=== PATIENT | male | born 1960 | race Caucasian/White ===

== ENCOUNTER → 2020-12-17 08:50 | Outpatient (CLI) | payer OTHER, SELFPAY ==
[2020-12-17 20:15] LABS: Alanine Aminotransferase 21 IU/L (<50); Albumin 3.9 g/dL (3.5-5.0); Albumin Globulin Ratio 1.4 (1.0-2.8); Alkaline Phosphatase 94 U/L (38-126); Aspartate Aminotransferase 29 IU/L (17-59); Bilirubin Total 0.4 mg/dL (0.2-1.3); Blood Urea Nitrogen 22 mg/dL (9-20); Calcium 9.7 mg/dL (8.4-10.2); Carbon Dioxide 28 mmol/L (22-32); Chloride 104 mmol/L (98-107); Cholesterol 174 mg/dL (140-199); Estimated Glomerular Filt Rate > 60.0 mL/min (>60); Globulin 2.8 g/dL (1.7-4.1); Glucose 343 mg/dL (80-110); HDL Cholesterol 50 mg/dL (40-60); HEMOLYSIS < 15 (0-50); LDL Cholesterol Calculated 101 mg/dL (<100); Potassium 4.9 mmol/L (3.4-5.1); Sodium 138 mmol/L (137-145); Total Protein 6.7 g/dL (6.3-8.2); Triglycerides 117 mg/dL (35-150)
[2020-12-17 20:22] LABS: Hemoglobin A1C% w Est Avg Glu 12.4 % (4.0-6.0)
== END ==
PROVIDERS: PCP Family Medicine; Visit Provider Family Medicine
DX: E11.65 Type 2 diabetes mellitus with hyperglycemia (principal); Z79.4 Long term (current) use of insulin
CPT/HCPCS: 80053; 80061; 83036

== ENCOUNTER 2021-03-13 09:13 | Emergency (ER) | payer OTHER, SELFPAY ==
[2021-03-13 09:33] VITALS: BP 142/101; PULSE 88; RESP 20; TEMP 36.4; O2SAT 97; BMI 27.3
--- NOTE | 2021-03-13 12:15 | ED_ITS ---
HPI - Extremity Injury (Lower) General Chief Complaint: Extremity Injury, Lower Stated Complaint: jammed left knee/can't sleep from pain Time Seen by Provider: 03/13/21 12:15 Mode of arrival: Ambulatory History of Present Illness HPI Narrative: This is a 60-year-old male comes emergency depart with continued left knee pain approximately week after a hyperextension injury. Patient states he had swelling immediately afterwards. He has continued to have some swelling although not significant. Patient states he has had difficulty controlling his pain. He has tried NSAIDs [id number]. He did take some narcotic pain medication last night which was helpful to help him fall asleep but he still quite uncomfortable. Patient states his knee feels unstable. He feels like it is going to give way. He can feel a bit grinding or crunch sensation when he tr ies to flex his knee. He is able to flex and extend it but it is uncomfortable. Patient denies any new numbness, tingling or weakness in the foot. He denies any other additional injuries. He has never had any intervention to this knee. Patient did have meniscal repair to his right knee remotely. Patient lives on [facility] and was seen by providers there. Patient did have an x-ray yesterd ay which shows no acute change. He has not had any new or additional injuries since then. He is a known diabetic and takes medication for dyslipidemia. He denies allergies besides sulfa. Related Data Home Medications Medication Instructions Recorded Confirmed atorvastatin 20 mg tablet 20 mg PO DAILY 12/20/20 03/12/21 metformin 1,000 mg tablet 1,000 mg PO BID 12/20/20 03/12/21 Previous Rx's Medication Instructions Recorded blood sugar diagnostic (Contour #100 ea 12/21/20 Test Strips) insulin glargine 100 unit/mL (3 64 unit SUBCUT QAM #15 ml 12/21/20 mL) subcutaneous pen insulin aspart U-100 100 unit/mL 5 unit SUBCUT QACDINNER #15 ml 12/31/20 (3 mL) subcutaneous pen (Novolog Flexpen U-100 Insulin aspart) hydrocodone 5 mg-acetaminophen 325 See Rx Instructions PO BEDTIME PRN 03/12/21 mg tablet #10 tab hydrocodone 5 mg-acetaminophen 325 1 tab PO QID PRN #14 tab 03/13/21 mg tablet Allergies Allergy/AdvReac Type Severity Reaction Status Date / Time Sulfa (Sulfonamide AdvReac Mild RASH Verified 03/12/21 10:10 Antibiotics) Review of Systems Review of Systems ROS Unobtainable: All systems reviewed & are unremarkable except as noted in HPI and below Patient History Medical History Wears glasses Surgical History Anesthesia History of knee surgery History of nasal surgery Family History (Updated 01/10/21 @ 19:34 by Ashley Franklin) Father Cancer Diabetes mellitus Mother Blood disorder Grandfather History of heart disease Grandfather History of heart disease Social History Smoking Status: Never smoker Smoking Status: Never smoker Substance Use Type: marijuana Exam Narrative Exam Narrative: GENERAL: Alert and oriented x three, male in mild distress. Patient is standing initially when I arrive in the room but does have crutches. HEENT: Head normocephalic, atraumatic, EOMI, pupils reactive, face symmetric, moist mucous membranes NECK: Supple, full range of motion CARDIOVASCULAR: Regular rate and rhythm without murmurs, rubs or gallops. RESPIRATORY: Breath sounds equal bilaterally, no wheezes rales or rhonchi. EXTREMITIES: Patient appears to have full range of motion but actually does appear to slightly hyperextend while standing. Patient on joint laxity testing has increased laxity with valgus testing. Anterior posterior drawer seems less lacks. Patient does have some mild swelling in the knee. No ecchymosis, no skin changes. Patient does not have any significant bony tenderness on exam majority discomfort is posterior and soft tissue above the knee, no clubbing or edema. Neurovascularly intact. Patient has no bony tenderness for the lower extremity below the knee, ankle or toes. He is neurovascularly intact with 2+ pulses, no cyanosis or pallor other skin changes noted. NEUROLOGICAL: Cranial nerves II through XII grossly intact. Moving all extremities SKIN: Warm, dry, no petechiae, no rashes or lesions. Initial Vital Signs Initial Vital Signs: Vital Signs Temperature 97.5 F L 03/13/21 09:33 Pulse Rate 88 03/13/21 09:33 Respiratory Rate 20 03/13/21 09:33 Blood Pressure 142/101 H 03/13/21 09:33 Pulse Oximetry 97 03/13/21 09:33 Course Consultations Consultation #1: Dr. Kemp, orthopedic surgery would like to see a patient within the week for follow-up. They have the ability to do MRI through their office and she wishes for patient to contact his this may actually be more financially feasible for him than getting 1 obtain as an outpatient. Plan for knee immobilizer, toe-touch weight-bearing and patient to contact office. Vital Signs Vital signs: Vital Signs - 8 hr 03/13/21 15:21 Pulse Rate 75 Respiratory Rate 18 Blood Pressure 140/77 Pulse Oximetry 98 MDM - Extremity Injury (Lower) Imaging Data Extremity x-ray #1: Radiologist's Impression: [address] [id number] ReportSigned Patient: Yan Lombardi TMR#: [id number]: 9Acct:[id number]/Sex: 60 / MDate of Service: 03/12/21[id number] Procedure: XR knee LT 3V Ordering Provider: Allie Diaz P.A-C PROCEDURE: XR KNEE LT 3V INDICATIONS: left knee hyperextesion injury TECHNIQUE: 3 views of the knee were acquired. COMPARISON: None. FINDINGS: Bones: No fractures or dislocations. No suspicious bony lesions. Soft tissues: No joint effusion. No suspicious soft tissue calcifications. IMPRESSION: No trauma found. Dictated by: Jose A Hernandez M.D. on 03/12/2021 at 13:13 Approved by: Jose A Hernandez M.D. on 03/12/2021 at 13:13 [facility] Narrative Medical decision making narrative: This is a 60-year-old male with on a injury to his left knee, patient has exam for ligamentous injury. He is neurovascularly intact with no acute changes on his x-ray. Did consultation with orthopedic surgery who is happy to follow up with him and will help facilitate outpatient MRI. Patient is understandably frustrated he was told on [facility] by either provider or off has some voice but he could come to the ER again MRI. We discussed close not be able to provide this today. Patient was given a prescription for pain medication, ablation knee immobilizer he has crutches which he has been using. Patient states he is willing to pay garces for an MRI so was given ordered as Dr. Alexander would like 1 obtained to obtain as an outpatient if he is unwilling to wait for the office to facilitate 1 for him. Discharge Plan Departure Patient Disposition: Home Clinical Impression: Left knee injury Qualifiers: Encounter type: initial encounter Qualified Code(s): S89.92XA - Unspecified injury of left lower leg, initial encounter Internal derangement of knee Qualifiers: Laterality: left Qualified Code(s): M23.92 - Unspecified internal derangement of left knee Instructions: Knee Sprain, How to Use a Knee Immobilizer Activity Restrictions/Additional Instructions: Follow-up with orthopedic surgery. Call today for an appointment. A order has been given to you for outpatient MRI per Dr. Kemp they also have their own MRI machine and may take slightly longer but may be cheaper and the office can set you up for this if you prefer. Use crutches to toe-touch weightbear until seen by Orthopedic surgery. Continue knee immobilizer, you may remove to wash but continue to wear regularly. You may continue ibuprofen up to 800 mg every 8 hours as needed for pain. If this is inadequate to make take narcotic pain medication as prescribed. This medication can make you sleepy do not drive, perform hazardous activities or make any major decisions while taking it. This medication will make you constipated please take a stool softener once to twice daily until stools are soft and regular. P Splint Care: Keep splint clean and dry. Elevated affected body part to decrease swelling. OK to use ice pack on the affected body part. Use for 15-20 minutes each time, for 5-6x per day. If you develop worsening pain, numbness, tingling, discoloration of the affected body part, loosen knee immobilizer, and either see your doctor for an urgent re-assessment, or return to the Emergency Department. Return to the Emergency Department for any new or worsening symptoms. Prescriptions: New hydrocodone-acetaminophen 5-325 mg tablet 1 tab PO QID PRN (Reason: pain) Qty: 14 RF: 0 No Action insulin aspart U-100 [Novolog Flexpen U-100 Insulin] 100 unit/mL (3 mL) insulin pen 5 unit SUBCUT QACDINNER Qty: 15 RF: 5 insulin glargine 100 unit/mL (3 mL) insulin pen 64 unit SUBCUT QAM Qty: 15 RF: 5 (DME) Contour Test Strips Strip See Rx Instructions .ROUTE .MEDSUPPLY Qty: 100 RF: 5 metformin 1,000 mg tablet 1,000 mg PO BID RF: 0 atorvastatin 20 mg tablet 20 mg PO DAILY RF: 0 hydrocodone-acetaminophen 5-325 mg tablet See Rx Instructions PO BEDTIME PRN (Reason: pain, severe) Qty: 10 RF: 0 Referrals: Emeterio Medina MD [Primary Care Provider] - Melody Kemp MD [Physician] -
--- NOTE | 2021-03-13 15:00 | PC.NURSE ---
refused knee immobilizer. came from home with crutches
[2021-03-13 15:21] VITALS: BP 140/77; PULSE 75; RESP 18; O2SAT 98
== END 2021-03-13 15:21 | disposition home or self-care (01) ==
PROVIDERS: Emergency Provider Emergency Medicine; PCP Family Medicine
DX: S89.92XA Unspecified injury of left lower leg, initial encounter (principal); M23.92 Unspecified internal derangement of left knee; M25.362 Other instability, left knee; M25.562 Pain in left knee; S83.232A Complex tear of medial meniscus, current injury, left knee, initial encounter; S83.282A Other tear of lateral meniscus, current injury, left knee, initial encounter; M25.462 Effusion, left knee; M71.22 Synovial cyst of popliteal space [Baker], left knee; X50.0XXA Overexertion from strenuous movement or load, initial encounter
CPT/HCPCS: 73721; 99281; 99282

== ENCOUNTER → 2021-03-13 15:33 | Outpatient (CLI) | payer OTHER, SELFPAY ==
--- NOTE | 2021-03-13 15:34 | DI.MRI.S_ITS ---
PROCEDURE: MR KNEE LT WO CON INDICATIONS: left knee instability TECHNIQUE: Noncontrast sagittal PD fast spin echo and T2 fast spin echo with fat saturation, sagittal 3-D FLASH with fat saturation; coronal T1 spin echo and PD fast spin echo with fat saturation, and axial PD fast spin echo with fat saturation through the knee. COMPARISON: [facility] ([facility]), CR, XR KNEE LT 3V, 03/12/2021, 10:32. FINDINGS: Image quality: Excellent. Menisci: There is complex tearing in the body and posterior horn of the medial meniscus including an inferior flap tear at the junction of the body and posterior horn. This appears contiguous with a horizontally oriented longitudinal tear in the posterior horn involving the inferior articular surface but also demonstrating intrasubstance extension into the posterior meniscal root ligament. There is also radial tearing along the free edge in the body and posterior horn. There is partial tearing of the posterior meniscal root ligament without rupture. Within the lateral meniscus, there is mild degenerative tearing within the body involving the superior articular surface and free edge. There is also moderate partial tearing at the junction with the posterior meniscal root ligament without complete rupture. There is slight peripheral extrusion of the medial and lateral menisci. Cruciate ligaments: The anterior and posterior cruciate ligaments appear intact. Medial structures: The medial collateral ligament appears intact. The semimembranosus tendon insertions and meniscocapsular junction appear intact. Visualized portions of the pes anserinus tendons appear intact with mild peritendinous edema but no discrete bursal fluid collections. Lateral structures: The lateral collateral ligament, long and short heads of the biceps femoris tendon appear intact. The popliteus tendon appears intact. Iliotibial band appears normal. Anterior structures: The quadriceps and patellar tendons appear intact. Patellar alignment is normal. No femoral trochlear dysplasia or ventral trochlear prominence. There is prepatellar subcutaneous fluid and edema with a small amount of loculated fluid suggestive of bursitis. Bones and cartilage: No bone marrow contusions or fractures. There is minimal osteophytosis. Mild cartilage thinning is present in the medial compartment with chondral fissuring associated with small foci of subchondral edema along the medial femoral condyle. There is mild superficial chondral irregularity in the lateral compartment. Mild cartilage thinning is present in the patellofemoral compartment with superficial chondral fissuring along the lateral patellar facet. Joint space: There is a moderate-sized knee joint effusion. There is a small Alcantar's cyst. Normal appearing synovial plicae are incidentally noted. IMPRESSION: 1. Complex tearing of the medial meniscus and mild degenerative tearing of the lateral meniscus as described. Partial tearing of the meniscal root ligaments also demonstrated without rupture. 2. Moderate joint effusion and small Alcantar's cyst. 3. Prepatellar edema and small amount of loculated subcutaneous fluid suggestive of bursitis. 4. Mild chondral degeneration. Dictated by: Tristen Nolan M.D. on 03/14/2021 at 8:37 Approved by: Tristen Nolan M.D. on 03/14/2021 at 8:45
== END ==
PROVIDERS: PCP Family Medicine; Referring Provider Physician Assistant; Visit Provider Physician Assistant
DX: S89.92XA Unspecified injury of left lower leg, initial encounter (principal); M25.362 Other instability, left knee; M25.562 Pain in left knee; S83.232A Complex tear of medial meniscus, current injury, left knee, initial encounter; S83.282A Other tear of lateral meniscus, current injury, left knee, initial encounter; M25.462 Effusion, left knee; M71.22 Synovial cyst of popliteal space [Baker], left knee; X50.0XXA Overexertion from strenuous movement or load, initial encounter
CPT/HCPCS: 73721

== ENCOUNTER 2025-03-16 15:49 | Inpatient (IN) | payer MEDICARE, OTHER, SELFPAY ==
[2025-03-16] VITALS (14 sets, daily range): BP systolic 137–142; BP diastolic 69–70; PULSE 60–80; RESP 16–18; TEMP 35.9–36.8; O2SAT 98–100; BMI 27.3; BMI 27.1
--- NOTE | 2025-03-16 16:05 | ED.LOWEXIN ---
HPI - Extremity Injury (Lower) <Kurtis Zazueta, DO - Last Filed: 03/16/25 18:48> General Chief Complaint: Extremity Injury, Lower Stated Complaint: R Foot pain, Sent from PCP Time Seen by Provider: 03/16/25 15:52 History of Present Illness HPI Narrative: 65-year-old gentleman type 2 diabetic lipidemia presents with right lower extremity wound infection that started last Thursday after he accidentally dropped a block of wood on his foot and it started to get more swollen red and tender he did not seek out immediate medical attention was initially seen by the PCP this past Thursday started on oral antibiotics and follow up today with concerns at this has gone deeper than expected then would need IV antibiotics at this time. A packet of his information was sent to have to us including his lab work today which was glucose of 226 a white count of 16.7 with a left shift cultures obtained that showed staph aureus and mixed evelyn with the A1c of 10.4. He was initially given a shot of Rocephin in the office and started on Augmentin. Related Data Home Medications ?Medication ?Instructions ?Recorded ?Confirmed atorvastatin 20 mg tablet 20 mg PO DAILY 12/20/20 03/12/21 metformin 1,000 mg tablet 1,000 mg PO BID 12/20/20 03/12/21 Previous Rx's ?Medication ?Instructions ?Recorded blood sugar diagnostic (Contour #100 ea 12/21/20 Test Strips) insulin aspart U-100 100 unit/mL 5 unit (0.05 mL) SUBCUT QACDINNER 12/31/20 (3 mL) subcutaneous pen (Novolog #15 mL FlexPen U-100 Insulin aspart) hydrocodone 5 mg-acetaminophen 325 See Rx Instructions PO BEDTIME PRN 03/12/21 mg tablet pain, severe #10 tabs hydrocodone 5 mg-acetaminophen 325 1 tab PO QID PRN pain #14 tabs 03/13/21 mg tablet insulin glargine 100 unit/mL (3 64 unit (0.64 mL) SUBCUT QAM #15 mL 07/18/21 mL) subcutaneous pen pen needle, diabetic 31 gauge x See Rx Instructions .Route 07/19/21 5/16 (BD Ultra-Fine Short Pen .COMPLEX #100 ea Needle) Allergies Allergy/AdvReac Type Severity Reaction Status Date / Time Sulfa (Sulfonamide AdvReac Mild RASH Verified 03/12/21 10:10 Antibiotics) Review of Systems <Kurtis Zazueta DO - Last Filed: 03/16/25 18:48> Review of Systems ROS Unobtainable: All systems reviewed & are unremarkable except as noted in HPI and below Patient History <Kurtis Zazueta DO - Last Filed: 03/16/25 18:48> Medical History Wears glasses Surgical History Anesthesia History of knee surgery History of nasal surgery Family History (Updated 01/10/21 @ 19:34 by Ashley Franklin) Father Cancer Diabetes mellitus Mother Blood disorder Grandfather History of heart disease Grandfather History of heart disease Social History Smoking Status: Never smoker Exam <Kurtis Zazueta DO - Last Filed: 03/16/25 18:48> Narrative Exam Narrative: GENERAL: [65] year old patient appears stated age. Well-developed patient, in mild distress. HEAD: Atraumatic. Normocephalic. EYES: Pupils equal round and reactive. Extraocular motions intact. No scleral icterus. No injection or drainage. ENT: Nose without bleeding, purulent drainage. Throat without erythema, tonsillar hypertrophy or exudate. Airway patent. NECK: Trachea midline. Non tender CARDIOVASCULAR: Regular rate and rhythm without murmurs, gallops, or rubs. RESPIRATORY: Clear to auscultation. Breath sounds equal bilaterally. No wheezes, rales, or rhonchi. GASTROINTESTINAL: Abdomen soft, non-tender, nondistended. EXTREMITIES: No edema or joint tenderness. BACK: Nontender without deformity or crepitance. No flank tenderness. NEURO: AOx3. SKIN: RLE between interdigital webspace 3rd and 4th digit red swollen drainage with yellow pus drainage with streaking up the lower to mid distal 1/3 RLE Initial Vital Signs Initial Vital Signs: Vital Signs Pulse Rate 65 03/16/25 15:57 Pulse Oximetry 99 03/16/25 15:57 <Abram Brown DO - Last Filed: 03/16/25 22:09> Initial Vital Signs Initial Vital Signs: Vital Signs Pulse Rate 65 03/16/25 15:57 Pulse Oximetry 99 03/16/25 15:57 Course <Kurtis Zazueta, DO - Last Filed: 03/16/25 18:48> Orders Ordered: ED Orders 03/16/25 16:05 CRP [C-Reactive Protein Quant] Stat Complete Blood Count AUTO DIFF Stat Comprehensive Metabolic Panel Stat Erythrocyte Sedimentation Rate Stat Lactate (Lactic Acid) Stat Lipase Stat PTT Partial Thromboplastin Vinod Stat Procalcitonin Stat Prothrombin Time INR Stat 03/16/25 16:13 XR chest 1V Stat EKG-12 Lead Stat RT Consult Eval and Treat NOW 03/16/25 16:18 CT LE RT w con Stat 03/16/25 16:38 Blood Culture Stat 03/16/25 18:30 Wound Culture and Gram Stain Stat 03/16/25 18:44 MR foot RT wo/w con Stat 03/16/25 19:36 US arterial duplex LE RT Stat 03/16/25 21:53 Consult to Occupational Therapy Evaluate & Treat Consult to Physical Therapy Evaluate & Treat 03/16/25 22:00 Basic Metabolic Panel DAILY Complete Blood Count AUTO DIFF DAILY Acetaminophen (Acetaminophen 325 Mg Tablet) 650 mg PO Q6H PRN PRN Reason: Fever/Mild Pain (1-3) Hydrocodone Bitart/Acetaminophen (Hydrocodone/Acet 5/325 Tablet) 1 tab PO Q4H PRN PRN Reason: Pain, Moderate (4-6) Heparin Sodium (Porcine) (Heparin 5,000 Unit/Ml Vial) 5,000 unit SUBCUT BID SHELBIE Sodium Chloride (Normal Saline 0.9%) 1,000 mls @ 100 mls/hr IV CONT SHELBIE Piperacillin Sod/Tazobactam (Sod 3.375 gm/ Sodium Chloride) 100 mls @ 25 mls/hr IV Q8H SHELBIE Morphine Sulfate (Morphine 4 Mg/Ml Inj) 3 mg IV Q2HR PRN PRN Reason: Pain, Severe (7-10) Naloxone HCl (Naloxone 0.4 Mg/Ml Vial) 0.2 mg IV Q2MIN PRN PRN Reason: Opiate Reversal Ondansetron HCl (Ondansetron 4 Mg/2 Ml Inj) 4 mg IV NOW PRN PRN Reason: Nausea And Vomiting Ondansetron HCl (Ondansetron 4 Mg Odt) 4 mg PO NOW PRN PRN Reason: Nausea And Vomiting Ondansetron HCl (Ondansetron 4 Mg/2 Ml Inj) 4 mg IV Q8HR PRN PRN Reason: Nausea And Vomiting Vancomycin HCl (Vancomycin Per Pharmacy) 1 request MISC NOW PRN PRN Reason: cellulitis Discontinued Medications Dextrose (Dextrose 50 % In Water 25 Gm/50 Ml Syringe) 25 gm IV NOW ONE Stop: 03/16/25 19:07 Last Admin: 03/16/25 19:08 Dose: 25 gm Documented By: GUDELIA Dextrose (Dextrose 50 % In Water 25 Gm/50 Ml Syringe) 25 gm IV NOW ONE Stop: 03/16/25 20:49 Last Admin: 03/16/25 20:56 Dose: 25 gm Documented By: GUDELIA Sodium Chloride (Normal Saline 0.9%) 1,000 mls @ 1,000 mls/hr IV BOLUS ONE Stop: 03/16/25 17:12 Last Infusion: 03/16/25 19:04 Dose: Infused Documented By: Admin: 03/16/25 16:43 Dose: 1,000 mls/hr Documented By: GUDELIA Vancomycin HCl 1,000 mg/ (Sodium Chloride) 250 mls @ 250 mls/hr IV NOW ONE Stop: 03/16/25 17:13 Last Infusion: 03/16/25 19:04 Dose: Infused Documented By: Admin: 03/16/25 17:33 Dose: 250 mls/hr Documented By: GUDELIA Piperacillin Sod/Tazobactam (Sod 4.5 gm/ Sodium Chloride) 100 mls @ 200 mls/hr IV NOW ONE Stop: 03/16/25 16:15 Last Infusion: 03/16/25 17:34 Dose: Infused Documented By: Admin: 03/16/25 16:42 Dose: 200 mls/hr Documented By: GUDELIA Vital Signs Vital signs: Vital Signs - 8 hr 03/16/25 15:57 03/16/25 15:59 03/16/25 15:59 Temperature Pulse Rate 65 80 Respiratory Rate Blood Pressure 142/70 H Pulse Oximetry 99 100 Oxygen Delivery Method 03/16/25 16:00 03/16/25 16:01 03/16/25 16:30 Temperature 98.3 F Pulse Rate 77 80 72 Respiratory Rate 16 Blood Pressure 142/70 H Pulse Oximetry 100 100 99 Oxygen Delivery Method Room Air 03/16/25 17:00 03/16/25 17:30 03/16/25 18:00 Temperature Pulse Rate 65 63 65 Respiratory Rate Blood Pressure Pulse Oximetry 99 99 99 Oxygen Delivery Method 03/16/25 18:30 03/16/25 19:00 03/16/25 20:15 Temperature Pulse Rate 62 68 65 Respiratory Rate Blood Pressure Pulse Oximetry 100 99 98 Oxygen Delivery Method 03/16/25 20:30 03/16/25 21:00 Temperature Pulse Rate 67 60 Respiratory Rate Blood Pressure Pulse Oximetry 100 99 Oxygen Delivery Method <Abram Brown, DO - Last Filed: 03/16/25 22:09> Orders Ordered: ED Orders 03/16/25 16:05 CRP [C-Reactive Protein Quant] Stat Complete Blood Count AUTO DIFF Stat Comprehensive Metabolic Panel Stat Erythrocyte Sedimentation Rate Stat Lactate (Lactic Acid) Stat Lipase Stat PTT Partial Thromboplastin Vinod Stat Procalcitonin Stat Prothrombin Time INR Stat 03/16/25 16:13 XR chest 1V Stat EKG-12 Lead Stat RT Consult Eval and Treat NOW 03/16/25 16:18 CT LE RT w con Stat 03/16/25 16:38 Blood Culture Stat 03/16/25 18:30 Wound Culture and Gram Stain Stat 03/16/25 18:44 MR foot RT wo/w con Stat 03/16/25 19:36 US arterial duplex LE RT Stat 03/16/25 21:53 Consult to Occupational Therapy Evaluate & Treat Consult to Physical Therapy Evaluate & Treat 03/16/25 22:00 Basic Metabolic Panel DAILY Complete Blood Count AUTO DIFF DAILY Acetaminophen (Acetaminophen 325 Mg Tablet) 650 mg PO Q6H PRN PRN Reason: Fever/Mild Pain (1-3) Hydrocodone Bitart/Acetaminophen (Hydrocodone/Acet 5/325 Tablet) 1 tab PO Q4H PRN PRN Reason: Pain, Moderate (4-6) Heparin Sodium (Porcine) (Heparin 5,000 Unit/Ml Vial) 5,000 unit SUBCUT BID SHELBIE Sodium Chloride (Normal Saline 0.9%) 1,000 mls @ 100 mls/hr IV CONT SHELBIE Piperacillin Sod/Tazobactam (Sod 3.375 gm/ Sodium Chloride) 100 mls @ 25 mls/hr IV Q8H SHELBIE Morphine Sulfate (Morphine 4 Mg/Ml Inj) 3 mg IV Q2HR PRN PRN Reason: Pain, Severe (7-10) Naloxone HCl (Naloxone 0.4 Mg/Ml Vial) 0.2 mg IV Q2MIN PRN PRN Reason: Opiate Reversal Ondansetron HCl (Ondansetron 4 Mg/2 Ml Inj) 4 mg IV NOW PRN PRN Reason: Nausea And Vomiting Ondansetron HCl (Ondansetron 4 Mg Odt) 4 mg PO NOW PRN PRN Reason: Nausea And Vomiting Ondansetron HCl (Ondansetron 4 Mg/2 Ml Inj) 4 mg IV Q8HR PRN PRN Reason: Nausea And Vomiting Vancomycin HCl (Vancomycin Per Pharmacy) 1 request MISC NOW PRN PRN Reason: cellulitis Discontinued Medications Dextrose (Dextrose 50 % In Water 25 Gm/50 Ml Syringe) 25 gm IV NOW ONE Stop: 03/16/25 19:07 Last Admin: 03/16/25 19:08 Dose: 25 gm Documented By: GUDELIA Dextrose (Dextrose 50 % In Water 25 Gm/50 Ml Syringe) 25 gm IV NOW ONE Stop: 03/16/25 20:49 Last Admin: 03/16/25 20:56 Dose: 25 gm Documented By: GUDELIA Sodium Chloride (Normal Saline 0.9%) 1,000 mls @ 1,000 mls/hr IV BOLUS ONE Stop: 03/16/25 17:12 Last Infusion: 03/16/25 19:04 Dose: Infused Documented By: Admin: 03/16/25 16:43 Dose: 1,000 mls/hr Documented By: GUDELIA Vancomycin HCl 1,000 mg/ (Sodium Chloride) 250 mls @ 250 mls/hr IV NOW ONE Stop: 03/16/25 17:13 Last Infusion: 03/16/25 19:04 Dose: Infused Documented By: Admin: 03/16/25 17:33 Dose: 250 mls/hr Documented By: GUDELIA Piperacillin Sod/Tazobactam (Sod 4.5 gm/ Sodium Chloride) 100 mls @ 200 mls/hr IV NOW ONE Stop: 03/16/25 16:15 Last Infusion: 03/16/25 17:34 Dose: Infused Documented By: Admin: 03/16/25 16:42 Dose: 200 mls/hr Documented By: GUDELIA Vital Signs Vital signs: Vital Signs - 8 hr 03/16/25 15:57 03/16/25 15:59 03/16/25 15:59 Temperature Pulse Rate 65 80 Respiratory Rate Blood Pressure 142/70 H Pulse Oximetry 99 100 Oxygen Delivery Method 03/16/25 16:00 03/16/25 16:01 03/16/25 16:30 Temperature 98.3 F Pulse Rate 77 80 72 Respiratory Rate 16 Blood Pressure 142/70 H Pulse Oximetry 100 100 99 Oxygen Delivery Method Room Air 03/16/25 17:00 03/16/25 17:30 03/16/25 18:00 Temperature Pulse Rate 65 63 65 Respiratory Rate Blood Pressure Pulse Oximetry 99 99 99 Oxygen Delivery Method 03/16/25 18:30 03/16/25 19:00 03/16/25 20:15 Temperature Pulse Rate 62 68 65 Respiratory Rate Blood Pressure Pulse Oximetry 100 99 98 Oxygen Delivery Method 03/16/25 20:30 03/16/25 21:00 Temperature Pulse Rate 67 60 Respiratory Rate Blood Pressure Pulse Oximetry 100 99 Oxygen Delivery Method MDM - Extremity Injury (Lower) <Kurtis Zazueta, DO - Last Filed: 03/16/25 18:48> Lab Data 03/16/25 16:05 03/16/25 16:05 Labs: Lab Results 03/16/25 03/16/25 03/16/25 Range/Units 16:05 19:05 19:17 WBC 8.6 (4.5-11.0) X10^3/uL RBC 3.81 L (4.5-5.9) X10^6/uL Hgb 11.2 L (13.5-17.5) g/dL Hct 32.7 L (41-53) % MCV 85.7 (80-100) fL MCH 29.3 (26-34) PG MCHC 34.2 (30-36) % RDW 13.0 (11.6-14.8) % Plt Count 398 (150-400) X10^3/uL Neut % (Auto) 74.6 (50-75) % Lymph % (Auto) 15.4 L (25-40) % Glasscock % (Auto) 6.7 (3-14) % Eos % (Auto) 2.6 (2-4) % Baso % (Auto) 0.7 (0-2) % Neut # (Auto) 6500 (6572-3887) /uL Lymph # (Auto) 1300 (3256-7311) /uL Glasscock # (Auto) 600 (0-900) /uL Eos # (Auto) 200 (0-450) /uL Baso # (Auto) 100 (0-100) /uL ESR 117 H (0-15) MM/HR PT 11.6 (9.4-12.5) SECONDS INR 1.0 (0.9-1.3) APTT 30 (25.1-36.5) SECONDS Sodium 138 (137-145) mmol/L Potassium 4.8 (3.4-5.1) mmol/L Chloride 102 (98-107) mmol/L Carbon Dioxide 27 (22-32) mmol/L BUN 23 H (9-20) mg/dL Creatinine 1.30 H (0.66-1.25) mg/dL Estimated GFR > 60 (>60) mL/min BUN/Creatinine Ratio 17.7 (6-22) Glucose 188 H (70-99) mg/dL POC Whole Bld Glucose 48 L 128 H (70-99) mg/dL Lactate 0.7 (0.7-2.1) mmol/L Calcium 9.4 (8.4-10.2) mg/dL Total Bilirubin 0.5 (0.2-1.3) mg/dL AST 31 (17-59) IU/L ALT 17 (<50) IU/L Alkaline Phosphatase 143 H (38-126) U/L C-Reactive Protein 7.3 H (<1.0) mg/dL Total Protein 7.9 (6.3-8.2) g/dL Albumin 4.0 (3.5-5.0) g/dL Globulin 3.9 (1.7-4.1) g/dL Albumin/Globulin Ratio 1.0 (1.0-2.8) Lipase 251 (23-300) U/L Procalcitonin 0.613 H (<0.5) ng/mL 03/16/25 03/16/25 Range/Units 20:46 21:17 WBC (4.5-11.0) X10^3/uL RBC (4.5-5.9) X10^6/uL Hgb (13.5-17.5) g/dL Hct (41-53) % MCV (80-100) fL MCH (26-34) PG MCHC (30-36) % RDW (11.6-14.8) % Plt Count (150-400) X10^3/uL Neut % (Auto) (50-75) % Lymph % (Auto) (25-40) % Glasscock % (Auto) (3-14) % Eos % (Auto) (2-4) % Baso % (Auto) (0-2) % Neut # (Auto) (8783-9025) /uL Lymph # (Auto) (3171-0138) /uL Glasscock # (Auto) (0-900) /uL Eos # (Auto) (0-450) /uL Baso # (Auto) (0-100) /uL ESR (0-15) MM/HR PT (9.4-12.5) SECONDS INR (0.9-1.3) APTT (25.1-36.5) SECONDS Sodium (137-145) mmol/L Potassium (3.4-5.1) mmol/L Chloride (98-107) mmol/L Carbon Dioxide (22-32) mmol/L BUN (9-20) mg/dL Creatinine (0.66-1.25) mg/dL Estimated GFR (>60) mL/min BUN/Creatinine Ratio (6-22) Glucose (70-99) mg/dL POC Whole Bld Glucose 49 L 138 H (70-99) mg/dL Lactate (0.7-2.1) mmol/L Calcium (8.4-10.2) mg/dL Total Bilirubin (0.2-1.3) mg/dL AST (17-59) IU/L ALT (<50) IU/L Alkaline Phosphatase (38-126) U/L C-Reactive Protein (<1.0) mg/dL Total Protein (6.3-8.2) g/dL Albumin (3.5-5.0) g/dL Globulin (1.7-4.1) g/dL Albumin/Globulin Ratio (1.0-2.8) Lipase (23-300) U/L Procalcitonin (<0.5) ng/mL Imaging Data Extremity x-ray #1: Radiologist's Impression: [address] [address] [address] Scan Report Signed Patient: Yan Lombardi MR#: [id number] : 1960 Acct:[id number] Age/Sex: 65 / M Date of Service: 03/16/25 Loc: ED Accession Number: [id number] Procedure: CT LE RT w con Ordering Provider: Kurtis Zazueta D.O. PROCEDURE: CT LE RT W CON INDICATIONS: mrsa osteomyelitis? nec fac? TECHNIQUE: After the administration of intravenous contrast, 3 mm axial sections acquired of the lower extremity , with coronal and sagittal reformats. COMPARISON: None. FINDINGS: Image quality: Diagnostic Bones: There are degenerative changes throughout the visualized lower extremity at the knee, ankle, midfoot, and forefoot. Subchondral lucencies are present at the tibial spines, likely degenerative geodes and ganglion cyst. Subchondral lucencies at the ankle, probably degenerative geodes versus sequelae of prior erosions. Similar findings also seen in the foot particularly at the 1st MTP. Suspicion focal erosion is seen at the base of the 2nd middle phalanx. There may also be focal cortical irregularity at the head of the 1st proximal phalanx. Soft tissues: There is diffuse soft tissue swelling in the lower extremity. This is particularly evident in the foot. No rim enhancing fluid collection, however there is ulceration and soft tissue gas tracking along the plantar surface around the 3rd ray. Gas extends to the 2nd ray IMPRESSION: Diffuse soft tissue swelling in the lower extremity, more focally in the foot. Soft tissue gas is seen around the 2nd and 3rd rays. Differential includes emphysematous infection versus ulceration. Possible subtle erosions are seen at the base of the 2nd middle phalanx and head of the 1st proximal phalanx. These could represent sequelae of infection or arthritis. MRI could further evaluate if necessary. Other subchondral lucencies are present around the larger joints of the ankle, 1st MTP, and knee, likely from arthritic changes and degenerative geodes Dictated by: Jose Carreon M.D. on 03/16/2025 at 17:46 Approved by: Jose Carreon M.D. on 03/16/2025 at 17:52 ECG Data Interpretation: Sinus Rhythm with PAC HR 77 ND 130 QRS [address]-t wave change No previous ekg to compare MDM Narrative Medical decision making narrative: All lab work, vital signs, nurse triage note, medication list, previous ER visits reviewed. CT scan lower extremity diffuse soft tissue swelling in the lower extremity more focally in the foot soft tissue gas is seen around the 2nd and 3rd rays. Differential includes emphysematous infection versus ulceration. Possible subtle erosions are seen at the base of the 2nd middle phalanx and head of the 1st proximal phalanx. This CAD represent sequelae of infection or arthritis. WBC 8.6 hemoglobin 11.2 sed rate of 117, BUN 23 creatinine 1.3 glucose 188. C-reactive protein 7.3. Procalcitonin 0.613. Patient given vancomycin and Zosyn here. Case discussed with Dr. Jones who recommend MRI of the foot and Dr. Hinds wanted orthopedic surgery consult prior to admitting patient here. Case discussed with Dr. Brown at sign out pending final disposition <Abram Brown, - Last Filed: 03/16/25 22:09> Lab Data Labs: Lab Results 03/16/25 03/16/25 03/16/25 Range/Units 16:05 19:05 19:17 WBC 8.6 (4.5-11.0) X10^3/uL RBC 3.81 L (4.5-5.9) X10^6/uL Hgb 11.2 L (13.5-17.5) g/dL Hct 32.7 L (41-53) % MCV 85.7 (80-100) fL MCH 29.3 (26-34) PG MCHC 34.2 (30-36) % RDW 13.0 (11.6-14.8) % Plt Count 398 (150-400) X10^3/uL Neut % (Auto) 74.6 (50-75) % Lymph % (Auto) 15.4 L (25-40) % Glasscock % (Auto) 6.7 (3-14) % Eos % (Auto) 2.6 (2-4) % Baso % (Auto) 0.7 (0-2) % Neut # (Auto) 6500 (8658-6440) /uL Lymph # (Auto) 1300 (7301-1645) /uL Glasscock # (Auto) 600 (0-900) /uL Eos # (Auto) 200 (0-450) /uL Baso # (Auto) 100 (0-100) /uL ESR 117 H (0-15) MM/HR PT 11.6 (9.4-12.5) SECONDS INR 1.0 (0.9-1.3) APTT 30 (25.1-36.5) SECONDS Sodium 138 (137-145) mmol/L Potassium 4.8 (3.4-5.1) mmol/L Chloride 102 (98-107) mmol/L Carbon Dioxide 27 (22-32) mmol/L BUN 23 H (9-20) mg/dL Creatinine 1.30 H (0.66-1.25) mg/dL Estimated GFR > 60 (>60) mL/min BUN/Creatinine Ratio 17.7 (6-22) Glucose 188 H (70-99) mg/dL POC Whole Bld Glucose 48 L 128 H (70-99) mg/dL Lactate 0.7 (0.7-2.1) mmol/L Calcium 9.4 (8.4-10.2) mg/dL Total Bilirubin 0.5 (0.2-1.3) mg/dL AST 31 (17-59) IU/L ALT 17 (<50) IU/L Alkaline Phosphatase 143 H (38-126) U/L C-Reactive Protein 7.3 H (<1.0) mg/dL Total Protein 7.9 (6.3-8.2) g/dL Albumin 4.0 (3.5-5.0) g/dL Globulin 3.9 (1.7-4.1) g/dL Albumin/Globulin Ratio 1.0 (1.0-2.8) Lipase 251 (23-300) U/L Procalcitonin 0.613 H (<0.5) ng/mL 03/16/25 03/16/25 Range/Units 20:46 21:17 WBC (4.5-11.0) X10^3/uL RBC (4.5-5.9) X10^6/uL Hgb (13.5-17.5) g/dL Hct (41-53) % MCV (80-100) fL MCH (26-34) PG MCHC (30-36) % RDW (11.6-14.8) % Plt Count (150-400) X10^3/uL Neut % (Auto) (50-75) % Lymph % (Auto) (25-40) % Glasscock % (Auto) (3-14) % Eos % (Auto) (2-4) % Baso % (Auto) (0-2) % Neut # (Auto) (6761-9774) /uL Lymph # (Auto) (7252-6998) /uL Glasscock # (Auto) (0-900) /uL Eos # (Auto) (0-450) /uL Baso # (Auto) (0-100) /uL ESR (0-15) MM/HR PT (9.4-12.5) SECONDS INR (0.9-1.3) APTT (25.1-36.5) SECONDS Sodium (137-145) mmol/L Potassium (3.4-5.1) mmol/L Chloride (98-107) mmol/L Carbon Dioxide (22-32) mmol/L BUN (9-20) mg/dL Creatinine (0.66-1.25) mg/dL Estimated GFR (>60) mL/min BUN/Creatinine Ratio (6-22) Glucose (70-99) mg/dL POC Whole Bld Glucose 49 L 138 H (70-99) mg/dL Lactate (0.7-2.1) mmol/L Calcium (8.4-10.2) mg/dL Total Bilirubin (0.2-1.3) mg/dL AST (17-59) IU/L ALT (<50) IU/L Alkaline Phosphatase (38-126) U/L C-Reactive Protein (<1.0) mg/dL Total Protein (6.3-8.2) g/dL Albumin (3.5-5.0) g/dL Globulin (1.7-4.1) g/dL Albumin/Globulin Ratio (1.0-2.8) Lipase (23-300) U/L Procalcitonin (<0.5) ng/mL Imaging Data US lower extremity: Radiologist's Impression: [address] [address] Ultrasound Report Signed Patient: Yan Lombardi MR#: [id number] : 1960 Acct:[id number] Age/Sex: 65 / M Date of Service: 03/16/25 Loc: ED Accession Number: [id number] Procedure: US arterial duplex LE RT Ordering Provider: Abram Brown D.O. PROCEDURE: US ARTERIAL DUPLEX LE RT INDICATIONS: ASSESS FOR PVD FOR SURGICAL CONSULT. FOOT INFECTION/CELLULITIS. TECHNIQUE: Color and pulse Doppler interrogation was performed of the right lower extremity lower extremity arterial system, with image documentation. COMPARISON: [facility], , MR FOOT RT WO/W CON, 03/16/2025, 19:07. FINDINGS: Common femoral artery: 193 cm/sec, with triphasic flow. Deep femoral artery: 120 cm/sec, with triphasic flow. Proximal superficial femoral artery: 151 cm/sec, with triphasic flow. Mid superficial femoral artery: 145 cm/sec, with triphasic flow. Distal superficial femoral artery: 112 cm/sec, with triphasic flow. Popliteal artery: 172 cm/sec, with triphasic flow. Posterior tibial artery: 221 cm/sec, with triphasic flow. Anterior tibial artery/dorsalis pedis: 233 cm/sec, with triphasic flow. Avilez-scale imaging description: Mild scattered plaque. Borderline enlarged right groin nodes. IMPRESSION: No hemodynamically significant stenosis. MRI foot: Radiologist's Impression: [place] [address] Magnetic Resonance Report Signed Patient: Yan Lombardi MR#: [id number] : 1960 Acct:[id number] Age/Sex: 65 / M Date of Service: 03/16/25 Loc: ED Accession Number: [id number] Procedure: MR foot RT wo/w con Ordering Provider: Kurtis Zazueta D.O. PROCEDURE: MR FOOT RT WO/W CON INDICATIONS: foot infection TECHNIQUE: Multiphasic, multisequence MRI of the forefoot was performed, before and after intravenous contrast administration. COMPARISON: None. FINDINGS: Image quality: Diagnostic Bones and joints: [id number] edema is seen at the base of the 2nd, 3rd, and 4th proximal phalanges, with associated enhancement. On precontrast T1 weighted images, no definite loss of intrinsic T1 signal is present in these regions. A small area of focal erosive change is seen at the base of the 2nd middle phalanx. (/) no significant signal abnormality seen at the head of the 1st proximal phalanx. Background degenerative changes are present Soft tissues: No rim enhancing fluid collection. Moderate edema and has been is seen throughout the soft tissues, most confluent along the 2nd and 3rd rays. Bursal fluid is seen adjacent to the metatarsal heads. Small MTP joint effusions from the 1st through 4th rays. There is mild edema extending along the flexor and extensor tendons along the 2nd and 3rd proximal phalanges, without drainable or rim enhancing fluid IMPRESSION: Suspected soft tissue infection is seen most confluent along the 2nd and 3rd rays, particular on the plantar surface. There is mild edema extending along the 2nd and 3rd flexor and extensor tendons. No drainable collection. Likely reactive edema is seen at the bases of 2nd through 4th proximal phalanges. A small area of focal erosive changes is seen at the base of the 2nd middle phalanx, either a small focus of infection or arthritic erosion. No large area of osteomyelitis seen Mild MTP joint effusions and intermetatarsal bursal fluid. MDM Narrative Medical decision making narrative: All lab work, vital signs, nurse triage note, medication list, previous ER visits reviewed. CT scan lower extremity diffuse soft tissue swelling in the lower extremity more focally in the foot soft tissue gas is seen around the 2nd and 3rd rays. Differential includes emphysematous infection versus ulceration. Possible subtle erosions are seen at the base of the 2nd middle phalanx and head of the 1st proximal phalanx. This CAD represent sequelae of infection or arthritis. WBC 8.6 hemoglobin 11.2 sed rate of 117, BUN 23 creatinine 1.3 glucose 188. C-reactive protein 7.3. Procalcitonin 0.613. Patient given vancomycin and Zosyn here. Case discussed with Dr. Jones who recommend MRI of the foot and Dr. Hinds wanted orthopedic surgery consult prior to admitting patient here. Case discussed with Dr. Brown at sign out pending final disposition 1899: Patient was signed out to me by Dr. Zazueta, patient is a 65-year-old noncompliant diabetic complaining of swelling redness to the right foot, currently treated for cellulitis, however CT scan did show free air therefore Orthopedic surgery was consulted, Dr. Jones, he reviewed images of the patient's and is recommending MRI of the foot, we will disposition pending MRI result and final conversation with her orthopedic surgery. Patient's LRINEC score 2 1906: Informed by staff that patient's blood glucose now 48, patient currently NPO status given possible neck fascia, therefore will order D50 1937: Discussed case with Dr. Jones, he states would like to have vascular arterial study of the lower extremity to evaluate for any vascular disease that could compromise healing if patient were to have amputation of toes, states to call back/reach out wants MRI and ultrasound results are back to determine whether or not patient able to be admitted here or transferred 2131: Discussed case with Dr. Jones, is agreeable with keeping the patient here, states will try IV antibiotics 1st no plan to perform amputation at this time, requesting medicine admission, reach out for admission The patient's management plan was discussed Dr. No, who agrees to admit the patient to their service and assumes care of this patient at this time. Full admission orders will be placed by the primary team. Discharge Plan Departure Patient Disposition: Admitted As Inpatient Clinical Impression: Cellulitis, Hypoglycemia Admit Date/Time: 03/16/25 21:55 Admit Provider: Tyler No
--- NOTE | 2025-03-16 16:13 | DI.RAD.S_ITS ---
PROCEDURE: XR CHEST 1V INDICATIONS: suspected sepsis TECHNIQUE: One view of the chest was acquired. COMPARISON: None. FINDINGS: Surgical changes and devices: None. Lungs and pleura: Lungs are clear. No pleural effusions or pneumothorax. Mediastinum: Mediastinal contours appear normal. Heart size is normal. Bones and chest wall: No suspicious bony lesions. Overlying soft tissues appear unremarkable. IMPRESSION: No acute cardiopulmonary pathology. Dictated by: Vik Avelar M.D. on 03/16/2025 at 16:56 Approved by: Vik Avelar M.D. on 03/16/2025 at 16:57
--- NOTE | 2025-03-16 16:18 | DI.CT.S_ITS ---
PROCEDURE: CT LE RT W CON INDICATIONS: mrsa osteomyelitis? nec fac? TECHNIQUE: After the administration of intravenous contrast, 3 mm axial sections acquired of the lower extremity , with coronal and sagittal reformats. COMPARISON: None. FINDINGS: Image quality: Diagnostic Bones: There are degenerative changes throughout the visualized lower extremity at the knee, ankle, midfoot, and forefoot. Subchondral lucencies are present at the tibial spines, likely degenerative geodes and ganglion cyst. Subchondral lucencies at the ankle, probably degenerative geodes versus sequelae of prior erosions. Similar findings also seen in the foot particularly at the 1st MTP. Suspicion focal erosion is seen at the base of the 2nd middle phalanx. There may also be focal cortical irregularity at the head of the 1st proximal phalanx. Soft tissues: There is diffuse soft tissue swelling in the lower extremity. This is particularly evident in the foot. No rim enhancing fluid collection, however there is ulceration and soft tissue gas tracking along the plantar surface around the 3rd ray. Gas extends to the 2nd ray IMPRESSION: Diffuse soft tissue swelling in the lower extremity, more focally in the foot. Soft tissue gas is seen around the 2nd and 3rd rays. Differential includes emphysematous infection versus ulceration. Possible subtle erosions are seen at the base of the 2nd middle phalanx and head of the 1st proximal phalanx. These could represent sequelae of infection or arthritis. MRI could further evaluate if necessary. Other subchondral lucencies are present around the larger joints of the ankle, 1st MTP, and knee, likely from arthritic changes and degenerative geodes Dictated by: Jose Carreon M.D. on 03/16/2025 at 17:46 Approved by: Jose Carreon M.D. on 03/16/2025 at 17:52
[2025-03-16 16:23] LABS: Add Manual Diff / Slide Review NO; Hematocrit 32.7 % (41-53); Hemoglobin 11.2 g/dL (13.5-17.5); Lymphocytes Absolute Auto 1300 /uL (1100-4500); Mean Corpuscular HGB Conc 34.2 % (30-36); Mean Corpuscular Hemoglobin 29.3 PG (26-34); Mean Corpuscular Volume 85.7 fL (80-100); Platelet Count 398 X10^3/uL (150-400)
[2025-03-16 16:25] LABS: INR 1.0 (0.9-1.3); Prothrombin Time 11.6 SECONDS (9.4-12.5)
[2025-03-16 16:28] LABS: PTT Partial Thromboplastin Tim 30 SECONDS (25.1-36.5)
[2025-03-16 16:30] LABS: Alanine Aminotransferase 17 IU/L (<50); Albumin 4.0 g/dL (3.5-5.0); Albumin Globulin Ratio 1.0 (1.0-2.8); Alkaline Phosphatase 143 U/L (38-126); Blood Urea Nitrogen 23 mg/dL (9-20); Calcium 9.4 mg/dL (8.4-10.2); Carbon Dioxide 27 mmol/L (22-32); Chloride 102 mmol/L (98-107); Estimated Glomerular Filt Rate > 60 mL/min (>60); Globulin 3.9 g/dL (1.7-4.1); Glucose 188 mg/dL (70-99); HEMOLYSIS < 15 (0-50); Lipase 251 U/L (23-300); Potassium 4.8 mmol/L (3.4-5.1); Sodium 138 mmol/L (137-145); Total Protein 7.9 g/dL (6.3-8.2)
--- NOTE | 2025-03-16 16:30 | EKG_ITS ---
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
[2025-03-16 16:31] LABS: Lactate (Lactic Acid) 0.7 mmol/L (0.7-2.1)
[2025-03-16] MEDS: PIPERACILLIN/TAZO 4.5 GM in SODIUM CHLORIDE 0.9% 100 ML IV (16:42)
[2025-03-16] MEDS: SODIUM CHLORIDE 0.9% 1,000 ML 1000 ML IV (16:43)
[2025-03-16 16:46] LABS: Procalcitonin 0.613 ng/mL (<0.5)
[2025-03-16] MEDS: VANCOMYCIN 1,000 MG in SODIUM CHLORIDE 0.9% 250 ML 250 MG IV (17:33)
--- NOTE | 2025-03-16 18:44 | DI.MRI.S_ITS ---
PROCEDURE: MR FOOT RT WO/W CON INDICATIONS: foot infection TECHNIQUE: Multiphasic, multisequence MRI of the forefoot was performed, before and after intravenous contrast administration. COMPARISON: None. FINDINGS: Image quality: Diagnostic Bones and joints: [id number] edema is seen at the base of the 2nd, 3rd, and 4th proximal phalanges, with associated enhancement. On precontrast T1 weighted images, no definite loss of intrinsic T1 signal is present in these regions. A small area of focal erosive change is seen at the base of the 2nd middle phalanx. (5/18) no significant signal abnormality seen at the head of the 1st proximal phalanx. Background degenerative changes are present Soft tissues: No rim enhancing fluid collection. Moderate edema and has been is seen throughout the soft tissues, most confluent along the 2nd and 3rd rays. Bursal fluid is seen adjacent to the metatarsal heads. Small MTP joint effusions from the 1st through 4th rays. There is mild edema extending along the flexor and extensor tendons along the 2nd and 3rd proximal phalanges, without drainable or rim enhancing fluid IMPRESSION: Suspected soft tissue infection is seen most confluent along the 2nd and 3rd rays, particular on the plantar surface. There is mild edema extending along the 2nd and 3rd flexor and extensor tendons. No drainable collection. Likely reactive edema is seen at the bases of 2nd through 4th proximal phalanges. A small area of focal erosive changes is seen at the base of the 2nd middle phalanx, either a small focus of infection or arthritic erosion. No large area of osteomyelitis seen Mild MTP joint effusions and intermetatarsal bursal fluid. Dictated by: Jose Carreon M.D. on 03/16/2025 at 20:21 Approved by: Jose Carreon M.D. on 03/16/2025 at 20:28
[2025-03-16] MEDS: DEXTROSE 50 % IN WATER 25 GM/50 ML SYRINGE IV ×2 (19:08→20:56)
--- NOTE | 2025-03-16 19:16 | PC.NURSE ---
pt complains of low blood sugar. POC glucose 40s. ordered dextrose IV push
--- NOTE | 2025-03-16 19:18 | PC.NURSE ---
pt requested a POC Glucose, Blood glucose was taken at 1906 and resulted with 48. Doctor and RN made aware. Medication was administered by RNAbhi and Blood glucose rechecked at 1916 and resulted with 128.
--- NOTE | 2025-03-16 19:36 | DI.US.S_ITS ---
PROCEDURE: US ARTERIAL DUPLEX LE RT INDICATIONS: ASSESS FOR PVD FOR SURGICAL CONSULT. FOOT INFECTION/CELLULITIS. TECHNIQUE: Color and pulse Doppler interrogation was performed of the right lower extremity lower extremity arterial system, with image documentation. COMPARISON: [facility], MR, MR FOOT RT WO/W CON, 03/16/2025, 19:07. FINDINGS: Common femoral artery: 193 cm/sec, with triphasic flow. Deep femoral artery: 120 cm/sec, with triphasic flow. Proximal superficial femoral artery: 151 cm/sec, with triphasic flow. Mid superficial femoral artery: 145 cm/sec, with triphasic flow. Distal superficial femoral artery: 112 cm/sec, with triphasic flow. Popliteal artery: 172 cm/sec, with triphasic flow. Posterior tibial artery: 221 cm/sec, with triphasic flow. Anterior tibial artery/dorsalis pedis: 233 cm/sec, with triphasic flow. Avilez-scale imaging description: Mild scattered plaque. Borderline enlarged right groin nodes. IMPRESSION: No hemodynamically significant stenosis. Dictated by: Mara Jeffries M.D. on 03/16/2025 at 21:30 Approved by: Mara Jeffries M.D. on 03/16/2025 at 21:31
--- NOTE | 2025-03-16 22:08 | P.HP_ITS ---
History of Present Illness History of Present Illness Date Patient Seen: 03/16/25 Time Patient Seen: 22:09 Chief complaint: R Foot pain, Sent from PCP Narrative: 65-year-old male with past medical history of uncontrolled insulin-dependent diabetes, hyperlipidemia presents with right lower extremity wound infection. Per the patient's report, the patient excellently dropped a block of wood on right his foot last week. The patient started to notice that his foot got more swollen and has increased erythema. The patient did not seek medical help until last Thursday. The patient was placed on oral antibiotics (given one dose of Ceftriaxone and discharge home on Augmentin) and was asked to follow-up with his PCP today. However when the patient returned to his PCP the infection has worsened and the recommendation was to present to our ER for further management. Otherwise the patient denies any recent fever, chills, nausea, vomiting, diarrhea, chest pain or shortness of breath. WBC that was done earlier in the clinic was 16 and a culture swab that was done previously shows staff aureus with mixed evelyn In the emergency room, the patient was hemodynamically stable. WBC was 8.6 today and glucose was in the 40s. Patient was given D50 and diet started. Glucose improved above 120s. Creatinine 1.3. CRP 7.3. CT of the right foot shows signs with possible emphysematous infection versus ulceration. There is possible subtle erosions seen at the base of the second middle phalanx and head of the first proximal phalanx. Orthopedic surgeon was consulted and recommended an MRI. MRI did not show signs of osteomyelitis. Recommendations admit the patient for vancomycin and Zosyn. [facility] Medical History Wears glasses Surgical History Anesthesia History of knee surgery History of nasal surgery Family History (Updated 01/10/21 @ 19:34 by Ashley Franklin) Father Cancer Diabetes mellitus Mother Blood disorder Grandfather History of heart disease Grandfather History of heart disease Social History household members: spouse Smoking Status: Current some day smoker alcohol intake: former Meds Home Medications and Allergies Home Medications ?Medication ?Instructions ?Recorded ?Confirmed ?Type metformin 1,000 mg tablet 1,000 mg PO BID 12/20/2007/01 History blood sugar diagnostic (Contour #100 ea 12/21/2003/16 Rx Test Strips) insulin glargine 100 unit/mL (3 64 unit (0.64 mL) SUBC UT QAM #15 mL 07/18/21 03/16/25 Rx mL) subcutaneous pen pen needle, diabetic 31 gauge x See Rx Instructions .R oute 07/19/21 03/16/25 Rx 5/16 (BD Ultra-Fine Short Pen .COMPLEX #100 ea Needle) Allergies Allergy/AdvReac Type Severity Reaction Status Date / Time Sulfa (Sulfonamide AdvReac Mild RASH Verified 03/12/21 10:10 Antibiotics) Review of Systems Review of Systems ROS: Yes All systems reviewed with the patient and are negative except as otherwise documented Exam Vital Signs (past 8 hours): - 03/16/25 15:57 03/16/25 15:59 03/16/25 15:59 Temperature Pulse Rate 65 80 Respiratory Rate Blood Pressure 142/70 H Pulse Oximetry 99 100 Oxygen Delivery Method 03/16/25 16:00 03/16/25 16:01 03/16/25 16:30 Temperature 98.3 F Pulse Rate 77 80 72 Respiratory Rate 16 Blood Pressure 142/70 H Pulse Oximetry 100 100 99 Oxygen Delivery Method Room Air 03/16/25 17:00 03/16/25 17:30 03/16/25 18:00 Temperature Pulse Rate 65 63 65 Respiratory Rate Blood Pressure Pulse Oximetry 99 99 99 Oxygen Delivery Method 03/16/25 18:30 03/16/25 19:00 03/16/25 20:15 Temperature Pulse Rate 62 68 65 Respiratory Rate Blood Pressure Pulse Oximetry 100 99 98 Oxygen Delivery Method 03/16/25 20:30 03/16/25 21:00 Temperature Pulse Rate 67 60 Respiratory Rate Blood Pressure Pulse Oximetry 100 99 Oxygen Delivery Method Oxygen Delivery Method Room Air Narrative Exam Narrative: Physical Exam: GENERAL: The patient is not in any acute distressed. Awake and alert. HEENT: Nonicteric sclerae, PERRLA, EOMI. Oropharynx clear. Moist mucous membranes. Conjunctivae appear well perfused. HEART: Regular rate and rhythm without murmurs. No lower extremities edema. LUNGS: Clear to auscultation bilaterally. No wheezing, crackles or rhonchi ABDOMEN: Soft, positive bowel sounds, nontender. SKIN: Right foot with swelling and erythema. Otherwise No rash, no excessive bruising, petechiae, or purpura. NEUROLOGIC: AxO x 3. Cranial nerves II-XII intact without motor/sensory deficit. Objective Labs 03/16/25 16:05 03/16/25 16:05 Labs: Laboratory Results - last 24 hr 03/16/25 03/16/25 03/16/25 16:05 19:05 19:17 WBC 8.6 RBC 3.81 L Hgb 11.2 L Hct 32.7 L MCV 85.7 MCH 29.3 MCHC 34.2 RDW 13.0 Plt Count 398 Neut % (Auto) 74.6 Lymph % (Auto) 15.4 L [place] % (Auto) 6.7 Eos % (Auto) 2.6 Baso % (Auto) 0.7 Neut # (Auto) 6500 Lymph # (Auto) 1300 [place] # (Auto) 600 Eos # (Auto) 200 Baso # (Auto) 100 ESR 117 H PT 11.6 INR 1.0 APTT 30 Sodium 138 Potassium 4.8 Chloride 102 Carbon Dioxide 27 BUN 23 H Creatinine 1.30 H Estimated GFR > 60 BUN/Creatinine Ratio 17.7 Glucose 188 H POC Whole Bld Glucose 48 L 128 H Lactate 0.7 Calcium 9.4 Total Bilirubin 0.5 AST 31 ALT 17 Alkaline Phosphatase 143 H C-Reactive Protein 7.3 H Total Protein 7.9 Albumin 4.0 Globulin 3.9 Albumin/Globulin Ratio 1.0 Lipase 251 Procalcitonin 0.613 H 03/16/25 03/16/25 20:46 21:17 WBC RBC Hgb Hct MCV MCH MCHC RDW Plt Count Neut % (Auto) Lymph % (Auto) [place] % (Auto) Eos % (Auto) Baso % (Auto) Neut # (Auto) Lymph # (Auto) [place] # (Auto) Eos # (Auto) Baso # (Auto) ESR PT INR APTT Sodium Potassium Chloride Carbon Dioxide BUN Creatinine Estimated GFR BUN/Creatinine Ratio Glucose POC Whole Bld Glucose 49 L 138 H Lactate Calcium Total Bilirubin AST ALT Alkaline Phosphatase C-Reactive Protein Total Protein Albumin Globulin Albumin/Globulin Ratio Lipase Procalcitonin Assessment & Plan Assessment & Plan narrative: Diabetic lright foot wound infections with cellulitis. Admit the patient to medical inpatient. Of note the patient not septic at this time and hemodynamically stable. MRI of the left foot shows no sign of osteomyelitis. Continue IV vancomycin and Zosyn. IV fluid. Transient hypoglycemia. Of note,glucose was in the 40s. Patient was given D50 and diet started. Glucose improved above 120s. Hold all diabetic medication from home. Monitor glucose. Will give additional D5/D50 if needed. Hyperlipidemia. Resume home statin. DVT prophylaxis heparin subcu. CODE STATUS full code. Disposition likely home in 2 to 3 days - As the provider of this telehealth evaluation, requested by the patient's evaluating physician, I attest that I introduced myself to the patient, provided my credentials and determined that telemedicine via a real-time, 2 way interactive audio and video platform is an appropriate and effective means of providing this service. - I reviewed the patient's chart and had a discussion with the member of the patient's treatment team. - The patient and I mutually agreed with continuation of this evaluation via telemedicine. The patient consented for the telemedicine evaluation. - This virtual encounter was taken place from [place] by Dr. Tyler No. The patient was evaluated at [facility]. The encounter was approximately 35 minutes. The nurse was present during the entire time of the encounter and was able to move the stethoscope in appropriate directions. Time-Based Coding :: [TOTAL MINUTES] spent with patient and on the chart (including review of chart, obtaining history, exam, reviewing outside data, placing orders, documenting exam and treatment plan, and counseling patient) on [DATE].
[2025-03-17] MEDS: SODIUM CHLORIDE 0.9% 1,000 ML 100 ML IV ×3 (00:09→22:32)
[2025-03-17] MEDS: PIPERACILLIN/TAZO 3.375 GM in SODIUM CHLORIDE 0.9% 100 ML IV ×4 (00:10→22:32)
[2025-03-17] MEDS: VANCOMYCIN 1,250 MG/250 ML PIGGYBACK 125 MG IV ×2 (04:36→17:18)
[2025-03-17 05:27] LABS: Add Manual Diff / Slide Review NO; Hematocrit 30.8 % (41-53); Hemoglobin 10.6 g/dL (13.5-17.5); Lymphocytes Absolute Auto 1400 /uL (1100-4500); Mean Corpuscular HGB Conc 34.5 % (30-36); Mean Corpuscular Hemoglobin 29.6 PG (26-34); Mean Corpuscular Volume 85.8 fL (80-100); Platelet Count 339 X10^3/uL (150-400)
[2025-03-17 05:40] LABS: Blood Urea Nitrogen 19 mg/dL (9-20); Calcium 9.0 mg/dL (8.4-10.2); Carbon Dioxide 29 mmol/L (22-32); Chloride 107 mmol/L (98-107); Estimated Glomerular Filt Rate > 60 mL/min (>60); Glucose 68 mg/dL (70-99); HEMOLYSIS < 15 (0-50); Potassium 4.2 mmol/L (3.4-5.1); Sodium 142 mmol/L (137-145)
[2025-03-17 06:00] VITALS: BP 110/46; PULSE 89; RESP 18; TEMP 36.5; O2SAT 99
--- NOTE | 2025-03-17 07:41 | P.PN_ITS ---
Subjective Subjective Date Patient Seen: 03/17/25 Interval history: His wound cultures are growing Preveotella Disiens and Staph. He is quite opposed to having his infected toe amputated. His blood sugars have been in the 40-70 range so the Lantus is on hold. The white blood count is 5.7 with a hemoglobin of 10.6 and the BMP is normal. He lives on [address] and his physician is Dr. Hartley. He is now on Zosyn and vancomycin. Exam Vital Signs (past 8 hours): - 03/17/25 00:00 03/17/25 06:00 Temperature 97.7 F Pulse Rate 89 Respiratory Rate 18 Blood Pressure 110/46 L Pulse Oximetry 99 Oxygen Delivery Method Room Air Oxygen Flow Rate 0 Oxygen Delivery Method Room Air Oxygen Flow Rate 0 Narrative Exam Narrative: Alert and oriented x3. No apparent distress. The top of the right foot is reddened. He has a callus that is dried and uninfected on the ball of the right 1st metatarsal. The left 2nd toe is macerated an enlarged with redness. There is also laceration across the bottom of all the toes on that side. Objective Labs 03/17/25 04:41 03/17/25 04:41 Labs: Laboratory Results - last 24 hr 03/16/25 03/16/25 03/16/25 16:05 19:05 19:17 WBC 8.6 RBC 3.81 L Hgb 11.2 L Hct 32.7 L MCV 85.7 MCH 29.3 MCHC 34.2 RDW 13.0 Plt Count 398 Neut % (Auto) 74.6 Lymph % (Auto) 15.4 L [place] % (Auto) 6.7 Eos % (Auto) 2.6 Baso % (Auto) 0.7 Neut # (Auto) 6500 Lymph # (Auto) 1300 [place] # (Auto) 600 Eos # (Auto) 200 Baso # (Auto) 100 ESR 117 H PT 11.6 INR 1.0 APTT 30 Sodium 138 Potassium 4.8 Chloride 102 Carbon Dioxide 27 BUN 23 H Creatinine 1.30 H Estimated GFR > 60 BUN/Creatinine Ratio 17.7 Glucose 188 H POC Whole Bld Glucose 48 L 128 H Lactate 0.7 Calcium 9.4 Total Bilirubin 0.5 AST 31 ALT 17 Alkaline Phosphatase 143 H C-Reactive Protein 7.3 H Total Protein 7.9 Albumin 4.0 Globulin 3.9 Albumin/Globulin Ratio 1.0 Lipase 251 Procalcitonin 0.613 H 03/16/25 03/16/25 03/16/25 20:46 21:17 22:20 WBC RBC Hgb Hct MCV MCH MCHC RDW Plt Count Neut % (Auto) Lymph % (Auto) [place] % (Auto) Eos % (Auto) Baso % (Auto) Neut # (Auto) Lymph # (Auto) [place] # (Auto) Eos # (Auto) Baso # (Auto) ESR PT INR APTT Sodium Potassium Chloride Carbon Dioxide BUN Creatinine Estimated GFR BUN/Creatinine Ratio Glucose POC Whole Bld Glucose 49 L 138 H 107 H Lactate Calcium Total Bilirubin AST ALT Alkaline Phosphatase C-Reactive Protein Total Protein Albumin Globulin Albumin/Globulin Ratio Lipase Procalcitonin 03/16/25 03/17/25 23:28 04:41 WBC 5.7 RBC 3.59 L Hgb 10.6 L Hct 30.8 L MCV 85.8 MCH 29.6 MCHC 34.5 RDW 13.1 Plt Count 339 Neut % (Auto) 62.1 Lymph % (Auto) 24.0 L [place] % (Auto) 8.6 Eos % (Auto) 4.8 H Baso % (Auto) 0.5 Neut # (Auto) 3600 Lymph # (Auto) 1400 [place] # (Auto) 500 Eos # (Auto) 300 Baso # (Auto) 0 ESR PT INR APTT Sodium 142 Potassium 4.2 Chloride 107 Carbon Dioxide 29 BUN 19 Creatinine 1.12 Estimated GFR > 60 BUN/Creatinine Ratio 17.0 Glucose 68 L D POC Whole Bld Glucose 104 H Lactate Calcium 9.0 Total Bilirubin AST ALT Alkaline Phosphatase C-Reactive Protein Total Protein Albumin Globulin Albumin/Globulin Ratio Lipase Procalcitonin [facility] Medical History Wears glasses Surgical History Anesthesia History of knee surgery History of nasal surgery Family History (Updated 01/10/21 @ 19:34 by Ashley Franklin) Father Cancer Diabetes mellitus Mother Blood disorder Grandfather History of heart disease Grandfather History of heart disease Social History household members: spouse Smoking Status: Current some day smoker alcohol intake: former Assessment & Plan Assessment & Plan narrative: Diabetic Right foot wound infections with cellulitis. MRI of the left foot shows no sign of osteomyelitis. Continue IV vancomycin and Zosyn. IV fluid. -Culture growing Prevotella Disiens and Staph. -Ortho reviewed MRI and recommended toe amputation to increase chances of clearing this infection. He would like to take a course of antibiotics first. Transient hypoglycemia. Glucose was in the 40s. Patient was given D50 and diet started. Glucose improved above 120s. Holding all diabetic (Glargine and Lantus) medication from home. Monitor glucose. Will give additional D5/D50 if needed. Hyperlipidemia. Resumed home statin. DVT prophylaxis heparin subcu. CODE STATUS full code. Disposition likely home in 2 to 3 days Time-Based Coding :: [TOTAL MINUTES] spent with patient and on the chart (including review of chart, obtaining history, exam, reviewing outside data, placing orders, documenting exam and treatment plan, and counseling patient) on [DATE]. Quality VTE Deep Vein Thrombosis/Pulmonary Embolism Present on Admission: No
--- NOTE | 2025-03-17 08:12 | PM.CN.IH.1 ---
History of Present Illness Consult details Chief complaint: R Foot pain, Sent from PCP Narrative: CHIEF COMPLAINT - Diabetic foot infection of the right foot and with a wound on his plantar left foot HISTORY OF PRESENT ILLNESS Harjit Heredia presents with a diabetic foot infection isolated to his toes. He had been receiving antibiotics for cellulitis outpatient before presenting to the ED last night with progression despite antibiotics. He presented to the ED last night and was admitted to the hospitalist service. He denies pain in the area. He is receiving IV antibiotics. PERTINENT PAST MEDICAL HISTORY - Diabetes mellitus, with a reported hemoglobin A1c in the 12 range. PERTINENT MEDICATIONS - Parenteral antibiotics (initiated 12 hours ago). SOCIAL HISTORY - Lives on [facility]. - No podiatrists available locally. - No prior toe amputations. PHYSICAL EXAM - Constitutional: Patient is mentating appropriately, conversant, and not in acute distress. - Right Foot: Wound under the plantar aspect of the first MCP joint without probing to bone or surrounding erythema. Significant erythema on the dorsum of the foot with purulent wounds between the second and third and third and fourth toes. Intact skin, good capillary refill, palpable dorsal pedis pulse, and erythema extending to the midfoot. Area of eschar over the dorsum of the base of the third toe. - Left Foot: Plantar wound with peripheral callus formation under the 1st MCP joint. No erythema, no drainage. Wound does not probe to bone. IMAGING: MRI Right Foot: Suspected soft tissue infection is seen most confluent along the 2nd and 3rd rays, particular on the plantar surface.There is mild edema extending along the 2nd and 3rd flexor and extensor tendons. No drainable collection.Likely reactive edema is seen at the bases of 2nd through 4th proximal phalanges.A small area of focal erosive changes is seen at the base of the 2nd middle phalanx, either a small focus of infection or arthritic erosion. No large area of osteomyelitis seen Lower Extremity Duplex: No hemodynamically significant stenosis. ASSESSMENT Middle-aged male with diabetic foot infection involving the right 2nd, 3rd, 4th toes. Concern for osteomyelitis in the 2nd toe for which an amputation could be performed to increase the likelihood of infection eradication. PLAN I advised the patient today that I feel based on his MRI that amputation of his 2nd toe could increase the likelihood of successfully clearing his foot infection but that an attempt of medical management with IV antibiotics and rigid diabetic control could be attempted prior to making a definitive decision regarding amputation. I would perform the second toe amputation this admission if he desired to maximize his likelihood of successful infection eradication. He declined this, stating he would prefer to maximize medical therapy. I did offer to amputate the toe this admission. Given his preference for maximizing medical therapy, I would recommend wound care and close followup outpatient with podiatry. He lives on [facility] where there are no podiatrists so I would recommend followup with Dr. Chin here in [place]. Should he change his mind about a toe amputation I would perform that during this admission. Meds Home Medications and Allergies Home Medications ?Medication ?Instructions ?Recorded ?Confirmed ?Type metformin 1,000 mg tablet 1,000 mg PO BID 12/20/20 03/16/25 History blood sugar diagnostic (Contour #100 ea 12/21/20 03/16/25 Rx Test Strips) insulin glargine 100 unit/mL (3 64 unit (0.64 mL) SUBCUT QAM #15 mL 07/18/21 03/16/25 Rx mL) subcutaneous pen pen needle, diabetic 31 gauge x See Rx Instructions .Route 07/19/21 03/16/25 Rx 5/16 (BD Ultra-Fine Short Pen .COMPLEX #100 ea Needle) Allergies Allergy/AdvReac Type Severity Reaction Status Date / Time Sulfa (Sulfonamide AdvReac Mild RASH Verified 03/12/21 10:10 Antibiotics) Exam Vital Signs (past 8 hours): - 03/17/25 06:00 Temperature 97.7 F Pulse Rate 89 Respiratory Rate 18 Blood Pressure 110/46 L Pulse Oximetry 99 Oxygen Flow Rate 0 Oxygen Delivery Method Room Air Oxygen Flow Rate 0 Objective Labs 03/17/25 04:41 03/17/25 04:41 Labs: Laboratory Results - last 24 hr 03/16/25 03/16/25 03/16/25 16:05 19:05 19:17 WBC 8.6 RBC 3.81 L Hgb 11.2 L Hct 32.7 L MCV 85.7 MCH 29.3 MCHC 34.2 RDW 13.0 Plt Count 398 Neut % (Auto) 74.6 Lymph % (Auto) 15.4 L [place] % (Auto) 6.7 Eos % (Auto) 2.6 Baso % (Auto) 0.7 Neut # (Auto) 6500 Lymph # (Auto) 1300 [place] # (Auto) 600 Eos # (Auto) 200 Baso # (Auto) 100 ESR 117 H PT 11.6 INR 1.0 APTT 30 Sodium 138 Potassium 4.8 Chloride 102 Carbon Dioxide 27 BUN 23 H Creatinine 1.30 H Estimated GFR > 60 BUN/Creatinine Ratio 17.7 Glucose 188 H POC Whole Bld Glucose 48 L 128 H Lactate 0.7 Calcium 9.4 Total Bilirubin 0.5 AST 31 ALT 17 Alkaline Phosphatase 143 H C-Reactive Protein 7.3 H Total Protein 7.9 Albumin 4.0 Globulin 3.9 Albumin/Globulin Ratio 1.0 Lipase 251 Procalcitonin 0.613 H 03/16/25 03/16/25 03/16/25 20:46 21:17 22:20 WBC RBC Hgb Hct MCV MCH MCHC RDW Plt Count Neut % (Auto) Lymph % (Auto) [place] % (Auto) Eos % (Auto) Baso % (Auto) Neut # (Auto) Lymph # (Auto) [place] # (Auto) Eos # (Auto) Baso # (Auto) ESR PT INR APTT Sodium Potassium Chloride Carbon Dioxide BUN Creatinine Estimated GFR BUN/Creatinine Ratio Glucose POC Whole Bld Glucose 49 L 138 H 107 H Lactate Calcium Total Bilirubin AST ALT Alkaline Phosphatase C-Reactive Protein Total Protein Albumin Globulin Albumin/Globulin Ratio Lipase Procalcitonin 03/16/25 03/17/25 23:28 04:41 WBC 5.7 RBC 3.59 L Hgb 10.6 L Hct 30.8 L MCV 85.8 MCH 29.6 MCHC 34.5 RDW 13.1 Plt Count 339 Neut % (Auto) 62.1 Lymph % (Auto) 24.0 L [place] % (Auto) 8.6 Eos % (Auto) 4.8 H Baso % (Auto) 0.5 Neut # (Auto) 3600 Lymph # (Auto) 1400 [place] # (Auto) 500 Eos # (Auto) 300 Baso # (Auto) 0 ESR PT INR APTT Sodium 142 Potassium 4.2 Chloride 107 Carbon Dioxide 29 BUN 19 Creatinine 1.12 Estimated GFR > 60 BUN/Creatinine Ratio 17.0 Glucose 68 L D POC Whole Bld Glucose 104 H Lactate Calcium 9.0 Total Bilirubin AST ALT Alkaline Phosphatase C-Reactive Protein Total Protein Albumin Globulin Albumin/Globulin Ratio Lipase Procalcitonin [facility] Medical History Wears glasses Surgical History Anesthesia History of knee surgery History of nasal surgery Family History (Updated 01/10/21 @ 19:34 by Ashley Franklin) Father Cancer Diabetes mellitus Mother Blood disorder Grandfather History of heart disease Grandfather History of heart disease Social History household members: spouse Tobacco & Substance Use Smoking Status: Current some day smoker alcohol intake: former Assessment & Plan Assessment and plan (1) Type 2 diabetes mellitus with right diabetic foot infection: Status: Acute Time-Based Coding :: [TOTAL MINUTES] spent with patient and on the chart (including review of chart, obtaining history, exam, reviewing outside data, placing orders, documenting exam and treatment plan, and counseling patient) on [DATE]. PROFEE Charge Codes Inpatient or Observation consultation: [id number]
[2025-03-17 08:26] VITALS: BP 139/70; PULSE 73; RESP 16; TEMP 36.2; O2SAT 100
--- NOTE | 2025-03-17 09:29 | PT.IIE ---
Addendum entered and electronically signed by Ansley Kirk PT 03/17/25 12:35: e-sign Original Note: Current Diagnoses Type 2 diabetes mellitus with foot ulcer (03/16/25) Type 2 diabetes mellitus with other skin complications (03/16/25) Local infection of the skin and subcutaneous tissue, unspecified (03/16/25) Surgical History (Last Reviewed 03/13/21 @ 20:16 by Domonique Alejandre DO) Anesthesia History of knee surgery History of nasal surgery Medical History (Last Reviewed 03/13/21 @ 20:16 by Domonique Alejandre DO) Wears glasses Physical Therapy Inpatient Evaluation/Re-Eval M1 PT/OT-IP Prior Functional Status Start: 03/17/25 09:15 Freq: NEEDED Status: Active Protocol: Document 03/17/25 09:17 REFERENCE LIBRARY ASSISTANT (Rec: 03/17/25 09:29 REFERENCE LIBRARY ASSISTANT [id number]) Medical Review Prior Functional Status Medical History Yes Reviewed Mobility and Gait ind with all mobility without AD Activities of Daily ind without AD Living and IADL's Social History Household Members spouse Living Arrangements House Number of Floors ( One Floor Floors) Number of Stairs To 1 Enter/Railing? 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 M2 PT-IP Current Condition Start: 03/17/25 09:15 Freq: NEEDED Status: Active Protocol: Document 03/17/25 09:17 REFERENCE LIBRARY ASSISTANT (Rec: 03/17/25 09:29 REFERENCE LIBRARY ASSISTANT [id number]) Physical Therapy Current Condition Current Condition Evaluation Date 03/17/25 Treatment Diagnosis R foot diabetic wound infection M3 PT-IP Subjective Start: 03/17/25 09:15 Freq: NEEDED Status: Active Protocol: Document 03/17/25 09:17 REFERENCE LIBRARY ASSISTANT (Rec: 03/17/25 09:29 REFERENCE LIBRARY ASSISTANT [id number]) Subjective Physical Therapy Visit Type Type Initial Evaluation Visit Start Time 08:55 Visit Stop Time 09:15 Therapy Pain Assessment Pain When Pain Assessed At Rest Pain Present Pain Present Pain Reported M4 PT-IP Mobility and Gait Start: 03/17/25 09:15 Freq: NEEDED Status: Active Protocol: Document 03/17/25 09:17 REFERENCE LIBRARY ASSISTANT (Rec: 03/17/25 09:29 REFERENCE LIBRARY ASSISTANT [id number]) PT-Bed Mobility Assessment Supine to Sit Supine to Sit Independent Sit to Supine Sit to Supine Independent PT-Transfer Assessment Sit to and From Stand Sit to and from Standby Assistance Stand Equipment Transfer Assistive Gait Belt,Front Wheeled Walker Device Transfers Transfer Destination Bed Transfer Technique Stand Pivot Transfer Ability Level of Assist Standby Assistance Gait Assessment Gait Gait Assistance Contact Guard Assist Required: Able to Maintain Yes Weight Bearing Status During Gait Assistive Devices Assistive Device Front Wheeled Walker Comments Gait Comments RLE NWB status Stair Climbing Assessment Comments Stair Climbing demonstrated stair training with FWW but did not Comments perform with pt PT-Balance Assessment Sitting Balance and Reactions Static Sitting Normal Balance Ability Dynamic Sitting Normal Balance Ability Standing Balance and Reactions Static Standing Normal Balance Ability Dynamic Standing Good Balance Ability Device Used FWW M5 PT-IP Objective Assessments Start: 03/17/25 09:15 Freq: NEEDED Status: Active Protocol: Document 03/17/25 09:17 REFERENCE LIBRARY ASSISTANT (Rec: 03/17/25 09:29 REFERENCE LIBRARY ASSISTANT [id number]) Orientation Orientation/Cognition Level of Alertness Alert Orientation Name,Date,Place,Situation Language Function No Deficits Noted Ability Safety Awareness Understands Safety Issues Gross Range of Motion Upper Extremity ROM Assessment Within Functional Limits Lower Extremity ROM Assessment Within Functional Limits Strength Upper Extremity Strength Assessment Within Functional Limits Lower Extremity Strength Assessment Within Functional Limits M6 PT-IP Treatment Start: 03/17/25 09:15 Freq: NEEDED Status: Active Protocol: Document 03/17/25 09:17 REFERENCE LIBRARY ASSISTANT (Rec: 03/17/25 09:29 REFERENCE LIBRARY ASSISTANT [id number]) Physical Therapy Treatment Education Education Provided Precautions,Weight Bearing Status,Safety M7 PT-IP Assessment and Plan Start: 03/17/25 09:15 Freq: NEEDED Status: Active Protocol: Document 03/17/25 09:17 REFERENCE LIBRARY ASSISTANT (Rec: 03/17/25 09:29 REFERENCE LIBRARY ASSISTANT [id number]) PT Summary Assessment and Plan Potential Rehabilitation Good Potential Status of Condition Evolving at Evaluation Summary Impairments Balance,Gait,Activity Tolerance Goals Bed Mobility Goal Independent Transfer Goal Independent,Front Wheeled Walker Gait Goal Independent,Front Wheel Walker Gait Distance 50 Other Goals negotiate 1x6 step with FWW with spv Days to Meet Goals 7 Frequency of Treatment Frequency Of Once a Day Treatment Treatment Plan Physical Therapy Bed Mobility Training,Transfer Training,Gait Training, Treatment Plan Therapeutic Exercise,Balance Retraining,Discharge Planning,Neuromuscular Re-ed Other stair training Recommendations and Next Treatment Focus Weight Bearing Status Weight Bearing Non-Weight Bearing Status Recommendations To Nursing Amount of Assist Standby Assistance Needed Discharge Recommendations PT Discharge Home Recommendations Equipment Needed for FWW Home Before Discharge Transportation Needs Private Vehicle at Discharge
--- NOTE | 2025-03-17 10:55 | OT.IP.EVAL ---
Current Diagnoses Type 2 diabetes mellitus with foot ulcer (03/16/25) Type 2 diabetes mellitus with other skin complications (03/16/25) Local infection of the skin and subcutaneous tissue, unspecified (03/16/25) Past Medical History (Last Reviewed 03/13/21 @ 20:16 by Domonique Alejandre DO) Wears glasses Surgical History (Last Reviewed 03/13/21 @ 20:16 by Domonique Alejandre DO) Anesthesia History of knee surgery History of nasal surgery Occupational Therapy Inpatient Evaluation/Re-Eval M1 PT/OT-IP Prior Functional Status Start: 03/17/25 09:15 Freq: NEEDED Status: Active Protocol: Document 03/17/25 09:17 COMPUTER TRAINING SPECIALIST (Rec: 03/17/25 09:29 COMPUTER TRAINING SPECIALIST [id number]) Medical Review Prior Functional Status Medical History Yes Reviewed Mobility and Gait ind with all mobility without AD Activities of Daily ind without AD Living and IADL's Social History Household Members spouse Living Arrangements House Number of Floors ( One Floor Floors) Number of Stairs To 1 Enter/Railing? 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 OT-IP Current Condition Start: 03/17/25 11:09 Freq: Status: Active Protocol: Document 03/17/25 11:10 CCC (Rec: 03/17/25 11:16 [facility] Desktop) Occupational Therapy Current Condition Current Condition Evaluation Date 03/17/25 Treatment Diagnosis Diabetic right foot infection Diagnosis Onset Date 03/14/25 Weight Bearing Status Weight Bearing Non-Weight Bearing Status M3 OT- IP Subjective and Pain Start: 03/17/25 11:09 Freq: Status: Active Protocol: Document 03/17/25 11:10 [facility] (Rec: 03/17/25 11:16 [facility] Desktop) OT- Subjective Occupational Therapy Visit Type Type Initial Evaluation Visit Start Time 10:55 Visit Stop Time 11:05 Occupational Therapy Visit Comments Patient Comments Pt agreed to talk to OT for needs. Patient/Caregiver TO go home. Goals M4 OT- IP ADL's Start: 03/17/25 11:09 Freq: Status: Active Protocol: Document 03/17/25 11:10 [facility] (Rec: 03/17/25 11:16 [facility] Desktop) OT TAG-Hyck-Bamvbti General Evaluation Self-Feeding Ability Independent OT ADL-Grooming Comments OT Grooming Comments Not observed OT ADL-Oral Care Comments Oral Care Comments Not observed. OT ADL-Dressing Comments OT Dressing Comments Spoke of dressing the RLE first and take out last. Wear short. OT ADL-Toileting Comments OT Toileting USe of urinal and to sit for urinating as pt id NWB to Comments right foot. OT ADL-Bathing Comments OT Bathing Comments Suggested to get a shower chair, pt states to use the built in seat. Suggested pt clarify with nursing/doc whether his foot needs to be covered for showering needs. M5 OT- IP IADL's Start: 03/17/25 11:09 Freq: Status: Active Protocol: Document 03/17/25 11:10 [facility] (Rec: 03/17/25 11:16 [facility] Desktop) OT-Instrumental Activities of Daily Living Home Safety Awareness Awareness of Need Good Awareness for Assistance at Home Ability to Problem Able to Problem Solve Solve Emergency Situations Meal Preparation Meal Preparation Pt's to assist. Comments Blow Molding Machine Operator Blow Molding Machine Operator Pt's to assist. Comments M6 OT- IP Functional Cognition Start: 03/17/25 11:09 Freq: Status: Active Protocol: Document 03/17/25 11:10 [facility] (Rec: 03/17/25 11:16 [facility] Desktop) Cognitive Factors Limiting Selfcare Function Cognitive Ability Level of Alertness Alert Patient Orientation Name,Age,Birthday,Month,Date,Year,Day of Week,Place, Situation Attention Span Capable of Focused Attention Ability Ability to Follow Able to Follow Multi-Step Commands Commands Safety Awareness Underestimates Need for Assistance Cognitive Comments Cognitive Assessment Pt is insistent that he will be fine and at this time Comments not wanting to try crutches as pt states will just use crutches at home otherwise obtain a tall FWW. OT- Vision and Hearing OT- Hearing Assessment OT- Hearing WFL Assessment M7 OT- IP Mobility and Balance Start: 03/17/25 11:09 Freq: Status: Active Protocol: Document 03/17/25 11:10 CCC (Rec: 03/17/25 11:16 CCC Desktop) OT-Transfer Assessment Comments Mobility Comments Pt able to mobilize with PT earlier and SBA with FWW and mainly emphasis not to put weight on his right foot . M8 OT- IP Objective Assessments Start: 03/17/25 11:09 Freq: Status: Active Protocol: Document 03/17/25 11:10 CCC (Rec: 03/17/25 11:16 CCC Desktop) OT Gross Range of Motion Upper Extremity Range of Motion Assessment Within Functional Limits OT Strength Upper Extremity Strength Assessment Within Functional Limits M9 OT- IP Assessment and Plan Start: 03/17/25 11:09 Freq: Status: Active Protocol: Document 03/17/25 11:16 CCC (Rec: 03/17/25 11:18 CCC Desktop) OT Summary Assessment and Plan Potential Rehabilitation Excellent Potential Analytic Complexity Low at Evaluation Summary OT Impairments Pain,Balance,Dressing,Bathing,Shower Transfers Progress Towards Progressing Toward Goals Goals Assessment Summary Pt low complexity and main barriers are reminders to keep weight off his right foot. Able to suggest equipment needs for pt. Pt adamant that he will be fine for OT needs and that his to assist. Pt to go home with assist when medically stable. Frequency of Treatment Frequency Of Discharge Treatment Discharge Recommendations Home Equipment Needs Crutches versus FWW, WC long distance Transportation Needs Private Vehicle at Discharge
--- NOTE | 2025-03-17 11:37 | CM.DANOTE ---
DCP Assessment Note: Pt is a 65yo male, resident of [facility], is admitted for right foot cellulitis. Pt lives in a house with his , Renetta. Pt's Primary Care Provider is Dr. Butch Hahn MD and insurance is Medicare and [employer]. Reviewed chart and discussed with multidisciplinary team pt's medical status and initial discharge needs. Per hospitalist, Ortho consulted and will continue with medical therapy of IV Vancomycin and Zosyn for cellulitis due to pt declination of amputation. DCP met w/patient at bedside; introduced self and role. Patient was found in bed, alert and oriented, cooperative with assessment. Pt confirmed living situation and good support in spouse and family. Pt expressed preference in discharge home as soon as medically cleared. Pt has no prior hx of SNF Rehab or Home health. Pt stated some concerns of obtaining a ferry when discharged, states he is not able to get a reservation but will monitor for cancellations when dc is imminent. DCP educated on medical priority boarding process and needing orders from discharging MD, pt verbalized understanding. Email: [email or web address] ([email or web address]). Plan: Anticipating dc home when medically cleared in 2-3 days (RANDA: 03/19). CM team will follow closely for coordination of discharge plans. Nakia Gu [facility] Discharge Planning/Care Management CM Discharge Assessment Start: 03/16/25 22:46 Freq: Status: Active Protocol: Document 03/17/25 11:36 MW (Rec: 03/17/25 11:37 MW Desktop) Discharge Planning Assessment Assigned Discharge AXEL Yee Entry Level Accountant DPOA/Assigned Renetta, Designee Name Contact Information [phone] Advance Directives? No History Provided By Patient,Medical Record Prior Living House Arrangements Household Members spouse Independent with ADL Yes 's Is patient alert and Yes oriented? Comment Preference for home Barriers to No Discharge Discharge Plan Home Whiteboard Updated Yes in Patient Room with name and ext. # of Aerospace Quality Engineer Comment [phone] Review Status In Process Please Provide Date 03/17/25 Initial DC Assessment Was Performed Next Review Type Continued Stay Review
[2025-03-17 12:00] VITALS: BP 127/70; PULSE 58; RESP 15; TEMP 36.4; O2SAT 100
[2025-03-17] MEDS: INSULIN LISPRO 100 UNIT/ML 3ML VIAL SUBCUT ×3 (12:14→20:12)
[2025-03-17] MEDS: HEPARIN 5,000 UNIT/ML VIAL 5000 UNIT SUBCUT ×2 (12:15→20:14)
--- NOTE | 2025-03-17 14:37 | DIET.CONS ---
Dietary Consultation Note Admission Date: 03/16/2025 21:55 Assessment: 65 y M admitted for diabetic foot wound. Dietitian screened per high A1c%. Met with pt at bedside. Adjusts lantus dose at night based on BG, sometimes 60, sometimes 40 units. Experiences lows sometimes at night - never under 55. Started Ozempic a few months ago. Just got the dexcom CGM, is waiting at home now. Diet recall: oatmeal with nuts sandwich with deli meat or pb 12-16 oz meat, veg, carb Ht: 193.04 cm Wt: 101 kg BMI: 27.1 Last BM: 03/16/25 (03/16/25 22:46) MNA: 14 Sebastian Score: 21 Diet: 03/16/25 Breakfast Carbohydrate Consistent Diet Diet Modifications: Carbohydrate level: Medium (3 CHO) Reflex DM orders: No Nutrition Percent Meal Consumed 100% 03/17/25 13:00 Labs: RBC 3.59 X10^6/uL (4.5-5.9) L 03/17/25 04:41 Hgb 10.6 g/dL (13.5-17.5) L 03/17/25 04:41 Hct 30.8 % (41-53) L 03/17/25 04:41 Creatinine 1.12 mg/dL (0.66-1.25) 03/17/25 04:41 Lactate 0.7 mmol/L (0.7-2.1) 03/16/25 16:05 Nutrition Diagnosis: Altered nutrition related lab values r/t endocrine dysfunction, food and nutrition related knowledge deficit aeb A1c 10.4% (per ED note) Interventions: -Provided educ on CHO counting and pairing -NCM handout provided -Discussed ADA ranges for FBG and postprandial -provided renzo care handout -Coordinated for a requested referral from PCP Naeem in [place] for DM educ -Nutrition with wound healing - continuing with good protein sources, micronutrients to emphasis from food, good BG control. Pt has good appetite and ordering double protein sources at night, meeting needs. -Nakul BID EER: 100-125 g protein (1-1.25 g/kg per wounds) Monitoring/Evaluations: BG Electronically Signed by: Kim Ndiaye 03/17/25 14:37 Clinical Dietitian [address] [address]
--- NOTE | 2025-03-17 14:39 | PC.RNWOUND ---
Wound eval and dressing application Wounds to bilateral feet. Left foot- open wound to dorsal base of 3rd toe and open weeping areas between 2/3/4/5 toes. Warmth, erythema and edema noted to mid foot. Small to moderate amount of serosanguineous drainage noted. Dressing: iodosorb applied to all open areas, including between toes, then gauze lightly weaved between toes to wick drainage away, capped toes with ABD pad, secured with roll gauze/kerlix. Right foot- dry dark stained callus with minimal scabbing to plantar first met head and scabs with induration/edema noted to lateral aspect of great toe. Dressing: Iodosorb applied to both first met head and great toe, covered with foam, secured with roll gauze/kerlix. Recommend daily dressing changes. Plan to see him Thursday for outpatient wound care consult, if discharged at that time. Appointment scheduled for 03/20 @[address] Denis. contacted to inform of appointment.
[2025-03-17 16:00] VITALS: BP 131/67; PULSE 61; RESP 17; TEMP 36.3; O2SAT 99
[2025-03-17 20:00] VITALS: BP 138/76; PULSE 69; RESP 19; TEMP 36.7; O2SAT 98
[2025-03-17] MEDS: INSULIN GLARGINE 100 UNIT/ML 3ML PEN 20 UNIT SUBCUT (20:13)
[2025-03-18] VITALS: BP 125/53; PULSE 62; RESP 19; TEMP 36.5; O2SAT 97
[2025-03-18] MEDS: VANCOMYCIN TROUGH 1 REQUEST MISC (04:00)
[2025-03-18] MEDS: INSULIN LISPRO 100 UNIT/ML 3ML VIAL SUBCUT ×5 (05:07→20:42)
[2025-03-18] MEDS: VANCOMYCIN 1,250 MG/250 ML PIGGYBACK 125 MG IV (05:09)
[2025-03-18 06:00] VITALS: BP 135/68; PULSE 64; RESP 17; TEMP 36.3; O2SAT 98
[2025-03-18] MEDS: PIPERACILLIN/TAZO 3.375 GM in SODIUM CHLORIDE 0.9% 100 ML IV ×2 (06:26→17:09)
[2025-03-18] MEDS: SODIUM CHLORIDE 0.9% 1,000 ML 100 ML IV (08:55)
[2025-03-18] MEDS: HEPARIN 5,000 UNIT/ML VIAL 5000 UNIT SUBCUT ×2 (08:56→20:38)
--- NOTE | 2025-03-18 09:41 | PT-IP ANOTE ---
PT reviews chart and notse NWB per PT evaluation yesterday but PT cannot locate WB order in order section. PT speaks with Dr. Jones who clears pt for WBAT in forefoot offloading shoe. Dr. Jones states that he will be by later today to write this order in the chart. PT will locate forefoot offloading shoe and initiate training with the pt.
[2025-03-18] MEDS: INSULIN GLARGINE 100 UNIT/ML 3ML PEN 20 UNIT SUBCUT ×2 (10:05→20:39)
--- NOTE | 2025-03-18 10:30 | PT-IP ANOTE ---
PT obtains XL forefoot offloading shoe for pt but it is too short for his foot and he wears a size shoe 15. His toes would stick out of the end of the shoe. PT leaves message for Dr. Jones and will keep pt NWB RLE at this time.
--- NOTE | 2025-03-18 11:37 | PT.IPTN ---
Current Diagnoses Type 2 diabetes mellitus with foot ulcer (03/16/25) Type 2 diabetes mellitus with other skin complications (03/16/25) Local infection of the skin and subcutaneous tissue, unspecified (03/16/25) Physical Therapy Treatment Note M2 PT-IP Current Condition Start: 03/17/25 09:15 Freq: NEEDED Status: Active Protocol: Document 03/17/25 09:17 CANDY COUNTER CLERK (Rec: 03/17/25 09:29 CANDY COUNTER CLERK [id number]) Physical Therapy Current Condition Current Condition Evaluation Date 03/17/25 Treatment Diagnosis R foot diabetic wound infection M3 PT-IP Subjective Start: 03/17/25 09:15 Freq: NEEDED Status: Active Protocol: Document 03/18/25 10:23 MB (Rec: 03/18/25 11:37 MB Desktop) Subjective Physical Therapy Visit Type Type Treatment Note Visit Start Time 10:23 Visit Stop Time 11:23 Number of BONE PLANT SUPERVISOR Visits 0 Physical Therapy Visit Comments Patient Comments Pt states he would like to use his crutches at home initially. MD enters at start of treatment and after short discussion with MD, pt does have a lot of questions about plan and is receptive to using RW after trying crutches with PT. M4 PT-IP Mobility and Gait Start: 03/17/25 09:15 Freq: NEEDED Status: Active Protocol: Document 03/18/25 10:23 MB (Rec: 03/18/25 11:37 MB Desktop) PT-Bed Mobility Assessment Supine to Sit Supine to Sit Independent Scooting Scooting to Edge of Independent Bed PT-Transfer Assessment Sit to and From Stand Sit to and from Contact Guard Assistance,1 Person Assistance,Use of Stand Upper Extremities Equipment Transfer Assistive Gait Belt,Front Wheeled Walker,Axillary Crutches Device Transfers Transfer Destination Bed,Chair Transfer Technique Attempted hop stepping and pt does not always keep right foot off the floor Transfer Ability Level of Assist Contact Guard Assistance,1 Person Assistance,Use of Upper Extremities Comments Mobility Comments PT provides demo and ongoing cues about NWB RLE, keeping right knee bent and air under foot, not allowing foot to touch the floor with stepping or gait or steps. PT demonstrates STS with the crutches and pt reports after trying gait and transfers with crutches, he prefers the RW and will ask about getting a loaner from the closet on [place] Gait Assessment Gait Gait Assistance Contact Guard Assist Required: Distance (Feet) 10 Able to Maintain Yes Weight Bearing Status During Gait Assistive Devices Assistive Device Front Wheeled Walker,Axillary Crutches Factors Limiting Gait Function Factors Limiting Difficulty Following Directions,Incoordination,Poor Gait Function Balance Comments Gait Comments RLE NWB status hop gait: 10'x2 with crutches and 10'x2 with RW and PT manages IV pole Stair Climbing Assessment Evaluation Level of Assist On Minimal Assistance,1 Person Assistance Stairs Devices Stair Climbing Axillary Crutches,Front Wheel Walker Assistive Devices Technique/Endurance Stair Climbing Ascend and Descend Direction Stair Climbing Step to Step Technique Number of Steps 1 Climbed Stair Climbing Set # 2 Repetitions (reps) Comments Stair Climbing Forward hop up with crutches and backwards hop up with Comments RW and PT manages IV pole and assists pt, pt is most agreeable to use RW after trying with both devices PT-Balance Assessment Sitting Balance and Reactions Static Sitting Normal Balance Ability Dynamic Sitting Normal Balance Ability Standing Balance and Reactions Static Standing Normal Balance Ability Dynamic Standing Good Balance Ability Device Used RW and crutches M5 PT-IP Objective Assessments Start: 03/17/25 09:15 Freq: NEEDED Status: Active Protocol: Document 03/18/25 10:23 MB (Rec: 03/18/25 11:37 MB Desktop) Gross Range of Motion Lower Extremity ROM Impairments Abnormalities in right toes d/t swelling and wounds, little movement Strength Lower Extremity Strength Ankle Abnormalities in right ankles and toes Coordination Assessment Assessment Coordination NT Comments Sensation Assessment Comments Sensation Comments NT Other Assessments Other Other Assessments Pt with wound visible at right third metatarsal phalangeal joint, 2nd toe is red and edematous, pinkness goes up his aj and he reports it is better, right and left foot are dressed otherwise. M6 PT-IP Treatment Start: 03/17/25 09:15 Freq: NEEDED Status: Active Protocol: Document 03/18/25 10:23 MB (Rec: 03/18/25 11:37 MB Desktop) Physical Therapy Treatment Education Education Provided Precautions,Weight Bearing Status,Post-Op Packet,Safety Other Treatments Other Treatment Since forefoot offloading shoe will not fit pt, Performed extensive education on benefits of elevating Right foot , ongoing gait training necessary distances with RW, benefits of RW over crutches and benefits of NWB to prevent further injury to foot and to improve chances of wound healing, provided encouragement after pt given information about his presentation and plan by MD today M7 PT-IP Assessment and Plan Start: 03/17/25 09:15 Freq: NEEDED Status: Active Protocol: Document 03/18/25 10:23 MB (Rec: 03/18/25 11:37 MB Desktop) PT Summary Assessment and Plan Potential Rehabilitation Good Potential Status of Condition Unstable at Evaluation Summary Impairments ROM,Strength,Balance,Coordination,Gait,Activity Tolerance Progress Towards Progressing Toward Goals Goals Assessment Summary Pt is a gentleman presenting with right LE changes greatest in foot after dropping object on it and obtaining wound in setting of diabetes. He has skin changes on the dorsum of his foot and in toes today. Practiced gait with RW and crutches and recommend gait with RW at this time and NWB: his foot is too long for largest forefoot offloading shoe. Goals Bed Mobility Goal Independent Transfer Goal Independent,Front Wheeled Walker Gait Goal Independent,Front Wheel Walker Gait Distance 50 Other Goals negotiate 1x6 step with FWW with spv Days to Meet Goals 7 Frequency of Treatment Frequency Of Once a Day Treatment Treatment Plan Physical Therapy Bed Mobility Training,Transfer Training,Gait Training, Treatment Plan Therapeutic Exercise,Balance Retraining,Discharge Planning,Neuromuscular Re-ed Other stair training Recommendations and Next Treatment Focus Weight Bearing Status Weight Bearing Non-Weight Bearing Status Allowed Weight RLE Bearing Amount ( enter % or #) (%) Recommendations To Nursing Amount of Assist Standby Assistance Needed Discharge Recommendations PT Discharge Home Recommendations Equipment Needed for FWW Home Before Discharge Transportation Needs Private Vehicle at Discharge - PT assist x1
[2025-03-18 12:00] VITALS: BP 131/62; PULSE 64; RESP 15; TEMP 36.2; O2SAT 99
[2025-03-18] MEDS: VANCOMYCIN 1,000 MG in SODIUM CHLORIDE 0.9% 250 ML 250 MG IV (14:18)
--- NOTE | 2025-03-18 15:10 | CM.DPC ---
DCP COnt: Per MD, still waiting for cultures to determine PO vs IV abx at d/c and anticipate here for another 2-3 days and likely will need Priority Boarding Pass at d/c. Per PT, fitting pt with an off loading boot today to help with mobility. AXEL Zelaya
--- NOTE | 2025-03-18 18:08 | PM.PN.1 ---
Subjective Subjective Date Patient Seen: 03/18/25 Interval history: Chief complaint: Right foot infection diabetic with cellulitis History of present illness: 65-year-old male with past medical history of uncontrolled insulin-dependent diabetes, hyperlipidemia presents with right lower extremity wound infection. Per the patient's report, the patient excellently dropped a block of wood on right his foot last week. The patient started to notice that his foot got more swollen and has increased erythema. The patient did not seek medical help until last Thursday. The patient was placed on oral antibiotics (given one dose of Ceftriaxone and discharge home on Augmentin) and was asked to follow-up with his PCP today. However when the patient returned to his PCP the infection has worsened and the recommendation was to present to our ER for further management. Otherwise the patient denies any recent fever, chills, nausea, vomiting, diarrhea, chest pain or shortness of breath. WBC that was done earlier in the clinic was 16 and a culture swab that was done previously shows staff aureus with mixed evelyn In the emergency room, the patient was hemodynamically stable. WBC was 8.6 today and glucose was in the 40s. Patient was given D50 and diet started. Glucose improved above 120s. Creatinine 1.3. CRP 7.3. CT of the right foot shows signs with possible emphysematous infection versus ulceration. There is possible subtle erosions seen at the base of the second middle phalanx and head of the first proximal phalanx. Orthopedic surgeon was consulted and recommended an MRI. MRI did not show signs of osteomyelitis. Recommendations admit the patient for vancomycin and Zosyn. Hospital course: Review of systems: No fever or chills No nausea vomiting No chest pain palpitations Physical exam: NAD HEENT unremarkable No labored respirations Abdomen nondistended Right lower extremity with marked improvement erythema and swelling around digits and toes there is eschar the 3rd MTP joint and desquamation on the metatarsal pads on the plantar surface Left lower extremity has a callus and ulcer at the right plantar MTP joint surface Assessment and plan: Diabetic Right foot wound infections with cellulitis. MRI of the left foot shows no sign of osteomyelitis. Continue IV vancomycin and Zosyn. IV fluid. -Culture growing Prevotella Disiens and Staph. -Ortho reviewed MRI and recommended toe amputation to increase chances of clearing this infection. He would like to take a course of antibiotics first. Transient hypoglycemia. Glucose was in the 40s. Patient was given D50 and diet started. Glucose improved above 120s. Holding all diabetic (Glargine and Lantus) medication from home. Monitor glucose. Will give additional D5/D50 if needed. Hyperlipidemia. Resumed home statin. DVT prophylaxis heparin subcu. CODE STATUS full code. Disposition likely home in 2 to 3 days Time-Based Coding :: 35 minutes spent with patient and on the chart (including review of chart, obtaining history, exam, reviewing outside data, placing orders, documenting exam and treatment plan, and counseling patient) Exam Vital Signs (past 8 hours): - 03/18/25 12:00 Temperature 97.2 F L Pulse Rate 64 Respiratory Rate 15 Blood Pressure 131/62 Pulse Oximetry 99 Oxygen Flow Rate 0 Oxygen Delivery Method Room Air Oxygen Flow Rate 0 Objective Labs 03/17/25 04:41 03/17/25 04:41 Labs: Laboratory Results - last 24 hr 03/17/25 03/17/25 03/18/25 20:09 23:32 03:38 POC Whole Bld Glucose 325 H 228 H Vancomycin Trough 8.7 L 03/18/25 03/18/25 03/18/25 04:01 07:43 12:29 POC Whole Bld Glucose 282 H 199 H 298 H Vancomycin Trough 03/18/25 16:47 POC Whole Bld Glucose 333 H Vancomycin Trough PFSH Medical History Wears glasses Surgical History Anesthesia History of knee surgery History of nasal surgery Family History (Updated 01/10/21 @ 19:34 by Ashley Franklin) Father Cancer Diabetes mellitus Mother Blood disorder Grandfather History of heart disease Grandfather History of heart disease Social History household members: spouse Smoking Status: Current some day smoker alcohol intake: former Assessment & Plan Time-Based Coding :: [TOTAL MINUTES] spent with patient and on the chart (including review of chart, obtaining history, exam, reviewing outside data, placing orders, documenting exam and treatment plan, and counseling patient) on [DATE]. Quality VTE Deep Vein Thrombosis/Pulmonary Embolism Present on Admission: No
[2025-03-18] MEDS: ACETAMINOPHEN 325 MG TABLET 650 MG PO (20:38)
[2025-03-18 21:26] VITALS: BP 126/64; PULSE 70; RESP 16; TEMP 36.3; O2SAT 97
[2025-03-19 00:35] VITALS: BP 139/67; PULSE 55; RESP 16; TEMP 36.2; O2SAT 99
[2025-03-19] MEDS: PIPERACILLIN/TAZO 3.375 GM in SODIUM CHLORIDE 0.9% 100 ML IV ×2 (01:35→08:30)
[2025-03-19] MEDS: SODIUM CHLORIDE 0.9% 1,000 ML 100 ML IV (03:48)
[2025-03-19 04:10] VITALS: BP 145/70; PULSE 59; RESP 18; TEMP 36; O2SAT 98
[2025-03-19 08:00] VITALS: BP 149/70; PULSE 61; RESP 16; TEMP 36.3; O2SAT 98
[2025-03-19] MEDS: INSULIN LISPRO 100 UNIT/ML 3ML VIAL 10 UNIT SUBCUT ×2 (08:18→12:29)
[2025-03-19] MEDS: INSULIN GLARGINE 100 UNIT/ML 3ML PEN 20 UNIT SUBCUT (08:19)
[2025-03-19] MEDS: INSULIN LISPRO 100 UNIT/ML 3ML VIAL SUBCUT ×2 (08:19→12:29)
[2025-03-19] MEDS: HEPARIN 5,000 UNIT/ML VIAL 5000 UNIT SUBCUT ×2 (08:30→21:51)
--- NOTE | 2025-03-19 09:19 | PT-IP ANOTE ---
PT noted Dr. Jones's order for WBAT in forefoot offloading shoe. There is no forefoot offloading shoe long enough to cover pt's size 15 foot and his toes would hang out. Will con't NWB RLE to ensure wound healing. PT left message for Dr. Jones and also communicated with pt last date on 03/18/25. Pt understands benefits of NWB and foot elevation for wound healing. Hospitalist also nearby as PT and pt discussed this last date. Pt is doing well with NWB with RW and will have final PT treatment today to ensure understanding with stair training.
[2025-03-19] MEDS: INSULIN GLARGINE 100 UNIT/ML 3ML PEN 30 UNIT SUBCUT ×2 (11:18→21:51)
[2025-03-19] MEDS: [UNRECOGNIZED DRUG - OTHER] SUBCUT (11:19)
[2025-03-19] MEDS: SEMAGLUTIDE SUBCUT (11:19)
--- NOTE | 2025-03-19 11:48 | PT.IPTN ---
Current Diagnoses Type 2 diabetes mellitus with foot ulcer (03/16/25) Type 2 diabetes mellitus with other skin complications (03/16/25) Local infection of the skin and subcutaneous tissue, unspecified (03/16/25) Physical Therapy Treatment Note M2 PT-IP Current Condition Start: 03/17/25 09:15 Freq: NEEDED Status: Active Protocol: Document 03/17/25 09:17 DIRECTOR OF DIVERSITY AND INCLUSION (Rec: 03/17/25 09:29 DIRECTOR OF DIVERSITY AND INCLUSION [id number]) Physical Therapy Current Condition Current Condition Evaluation Date 03/17/25 Treatment Diagnosis R foot diabetic wound infection M3 PT-IP Subjective Start: 03/17/25 09:15 Freq: NEEDED Status: Active Protocol: Document 03/19/25 10:50 MB (Rec: 03/19/25 11:47 MB Desktop) Subjective Physical Therapy Visit Type Type Treatment Note Visit Start Time 10:50 Visit Stop Time 11:28 Number of CASE MANAGEMENT RN Visits 0 Physical Therapy Visit Comments Patient Comments Pt is agreeable to further RW training, step training with RW, agreeable to RW issue d/t no word yet if could borrow him one, and benefits of ongoing NWB RLE at this time given no post-op shoe to fit him. M4 PT-IP Mobility and Gait Start: 03/17/25 09:15 Freq: NEEDED Status: Active Protocol: Document 03/19/25 10:50 MB (Rec: 03/19/25 11:47 MB Desktop) PT-Bed Mobility Assessment Supine to Sit Supine to Sit Independent Scooting Scooting to Edge of Independent Bed PT-Transfer Assessment Sit to and From Stand Sit to and from Independent,Standby Assistance,1 Person Assistance,Use Stand of Upper Extremities Equipment Transfer Assistive Gait Belt,Front Wheeled Walker Device Transfers Transfer Destination Chair,Toilet Transfer Technique Pt does better with hop stepping, occ touching foot to floor Transfer Ability Level of Assist Independent,Standby Assistance Gait Assessment Gait Gait Assistance Independent,Standby Assistance Required: Distance (Feet) 30 Able to Maintain Yes Weight Bearing Status During Gait Assistive Devices Assistive Device Front Wheeled Walker Factors Limiting Gait Function Factors Limiting Difficulty Following Directions,Incoordination,Poor Gait Function Balance Comments Gait Comments Improved hop stepping with RW in room today Stair Climbing Assessment Evaluation Level of Assist On Contact Guard Assistance,Minimal Assistance,1 Person Stairs Assistance Devices Stair Climbing Front Wheel Walker Assistive Devices Technique/Endurance Stair Climbing Ascend and Descend Direction Stair Climbing Step to Step Technique Number of Steps 1 Climbed Stair Climbing Set # 1 Repetitions (reps) Comments Stair Climbing Forward hop up with crutches and backwards hop up with Comments RW and improvement today, PT only assists to lift RW onto step and PT provides CGA for descend PT-Balance Assessment Sitting Balance and Reactions Static Sitting Normal Balance Ability Dynamic Sitting Normal Balance Ability Standing Balance and Reactions Static Standing Normal Balance Ability Dynamic Standing Good Balance Ability Device Used RW M5 PT-IP Objective Assessments Start: 03/17/25 09:15 Freq: NEEDED Status: Active Protocol: Document 03/18/25 10:23 MB (Rec: 03/18/25 11:37 MB Desktop) Gross Range of Motion Lower Extremity ROM Impairments Abnormalities in right toes d/t swelling and wounds, little movement Strength Lower Extremity Strength Ankle Abnormalities in right ankles and toes Coordination Assessment Assessment Coordination NT Comments Sensation Assessment Comments Sensation Comments NT Other Assessments Other Other Assessments Pt with wound visible at right third metatarsal phalangeal joint, 2nd toe is red and edematous, pinkness goes up his aj and he reports it is better, right and left foot are dressed otherwise. M6 PT-IP Treatment Start: 03/17/25 09:15 Freq: NEEDED Status: Active Protocol: Document 03/19/25 10:50 MB (Rec: 03/19/25 11:47 MB Desktop) Physical Therapy Treatment Education Education Provided Precautions,Weight Bearing Status,Safety M7 PT-IP Assessment and Plan Start: 03/17/25 09:15 Freq: NEEDED Status: Active Protocol: Document 03/19/25 10:50 MB (Rec: 03/19/25 11:47 MB Desktop) PT Summary Assessment and Plan Potential Rehabilitation Good Potential Status of Condition Unstable at Evaluation Summary Impairments ROM,Strength,Balance,Coordination,Gait,Activity Tolerance Progress Towards Progressing Toward Goals Goals Assessment Summary Pt mobilizes better with RW today and occ touches right foot to floor to help with balance. Performed stair training again and issued RW for home as pt does not know if can secure him one or not yet. Will d/c acute PT and recommend up with nsg superv. Goals Bed Mobility Goal Independent Transfer Goal Independent,Front Wheeled Walker Gait Goal Independent,Front Wheel Walker Gait Distance 50 Other Goals negotiate 1x6 step with FWW with spv Days to Meet Goals 7 Frequency of Treatment Frequency Of Once a Day Treatment Treatment Plan Physical Therapy Bed Mobility Training,Transfer Training,Gait Training, Treatment Plan Therapeutic Exercise,Balance Retraining,Discharge Planning,Neuromuscular Re-ed Other stair training Recommendations and Next Treatment Focus Weight Bearing Status Weight Bearing Non-Weight Bearing Status Allowed Weight RLE Bearing Amount ( See admin notes about WB, foot too long for post-op enter % or #) (%) shoe Recommendations To Nursing Amount of Assist Standby Assistance Needed Discharge Recommendations PT Discharge Home Recommendations Transportation Needs Private Vehicle at Discharge - PT assist x1
[2025-03-19] MEDS: VANCOMYCIN TROUGH 1 REQUEST MISC (13:30)
[2025-03-19] MEDS: VANCOMYCIN 1,000 MG in SODIUM CHLORIDE 0.9% 250 ML 250 MG IV (15:00)
--- NOTE | 2025-03-19 16:23 | PM.PN.1 ---
Subjective Subjective Date Patient Seen: 03/19/25 Interval history: Chief complaint: Right foot infection diabetic with cellulitis History of present illness: 65-year-old male with past medical history of uncontrolled insulin-dependent diabetes, hyperlipidemia presents with right lower extremity wound infection. Per the patient's report, the patient excellently dropped a block of wood on right his foot last week. The patient started to notice that his foot got more swollen and has increased erythema. The patient did not seek medical help until last Thursday. The patient was placed on oral antibiotics (given one dose of Ceftriaxone and discharge home on Augmentin) and was asked to follow-up with his PCP today. However when the patient returned to his PCP the infection has worsened and the recommendation was to present to our ER for further management. Otherwise the patient denies any recent fever, chills, nausea, vomiting, diarrhea, chest pain or shortness of breath. WBC that was done earlier in the clinic was 16 and a culture swab that was done previously shows staff aureus with mixed evelyn In the emergency room, the patient was hemodynamically stable. WBC was 8.6 today and glucose was in the 40s. Patient was given D50 and diet started. Glucose improved above 120s. Creatinine 1.3. CRP 7.3. CT of the right foot shows signs with possible emphysematous infection versus ulceration. There is possible subtle erosions seen at the base of the second middle phalanx and head of the first proximal phalanx. Orthopedic surgeon was consulted and recommended an MRI. MRI did not show signs of osteomyelitis. Recommendations admit the patient for vancomycin and Zosyn. Hospital course: 03/18: Interval improvement in the cellulitic appearance of the foot on the left and left toe debridement was performed 03/19: Continued interval improvement although increased swelling maybe some increased erythema of the foot overall although this may just be fluid overload fluid wound culture demonstrated MSSA but still concerned about other organisms however antibiotics will be changed to ceftriaxone 2 g IV daily and IV clindamycin Review of systems: No fever or chills No nausea vomiting No chest pain palpitations Physical exam: NAD HEENT unremarkable No labored respirations Abdomen nondistended Right lower extremity with marked improvement erythema and swelling around digits and toes there is eschar the 3rd MTP joint and desquamation on the metatarsal pads on the plantar surface Left lower extremity has a callus and ulcer at the right plantar MTP joint surface Assessment and plan: Diabetic Right foot wound infections with cellulitis. MRI of the left foot shows no sign of osteomyelitis. Continue IV vancomycin and Zosyn. IV fluid discontinued and antibiotics changed to ceftriaxone and clindamycin -Culture growing Prevotella Disiens and Staph. -Ortho reviewed MRI and recommended toe amputation to increase chances of clearing this infection. He would like to take a course of antibiotics first. Transient hypoglycemia. Glucose was in the 40s. Patient was given D50 and diet started. Glucose improved above 120s. Holding all diabetic (Glargine and Lantus) medication from home. Monitor glucose. Will give additional D5/D50 if needed. Hyperlipidemia. Resumed home statin. DVT prophylaxis heparin subcu. CODE STATUS full code. Disposition likely home in 2 to 3 days Time-Based Coding :: 35 minutes spent with patient and on the chart (including review of chart, obtaining history, exam, reviewing outside data, placing orders, documenting exam and treatment plan, and counseling patient) Exam Vital Signs (past 8 hours): Oxygen Delivery Method Room Air Oxygen Flow Rate 0 Objective Labs 03/17/25 04:41 03/17/25 04:41 Labs: Laboratory Results - last 24 hr 03/18/25 03/18/25 03/19/25 16:47 20:42 07:57 POC Whole Bld Glucose 333 H 207 H D 294 H Vancomycin Trough 03/19/25 03/19/25 11:26 12:29 POC Whole Bld Glucose 255 H Vancomycin Trough 5.9 L PFSH Medical History Wears glasses Surgical History Anesthesia History of knee surgery History of nasal surgery Family History (Updated 01/10/21 @ 19:34 by Ashley Franklin) Father Cancer Diabetes mellitus Mother Blood disorder Grandfather History of heart disease Grandfather History of heart disease Social History household members: spouse Smoking Status: Current some day smoker alcohol intake: former Assessment & Plan Time-Based Coding :: [TOTAL MINUTES] spent with patient and on the chart (including review of chart, obtaining history, exam, reviewing outside data, placing orders, documenting exam and treatment plan, and counseling patient) on [DATE]. Quality VTE Deep Vein Thrombosis/Pulmonary Embolism Present on Admission: No
[2025-03-19] MEDS: INSULIN LISPRO 100 UNIT/ML 3ML VIAL 8 UNIT SUBCUT (17:08)
[2025-03-19] MEDS: cefTRIAXone 2,000 MG in SODIUM CHLORIDE 0.9% 100 ML 200 MG IV (17:11)
[2025-03-19 18:00] VITALS: BP 123/69; PULSE 60; RESP 16; TEMP 36.5; O2SAT 100
[2025-03-19 20:00] VITALS: BP 127/63; PULSE 65; RESP 20; TEMP 36.4; O2SAT 98
[2025-03-19] MEDS: DOXYCYCLINE 100 MG in SODIUM CHLORIDE 0.9% 100 ML IV (21:51)
[2025-03-19] MEDS: ATORVASTATIN 20 MG TABLET PO (21:52)
--- NOTE | 2025-03-20 | DI.RAD.S_ITS ---
PROCEDURE: XR FOOT LT MIN 3V INDICATIONS: Diabetic foot ulcer TECHNIQUE: 3 views of the foot were acquired. COMPARISON: None. FINDINGS: Bones: No fractures or dislocations. Severe degenerative changes are noted throughout the tarsometatarsal joints marked by joint space narrowing, marginal osteophytosis, subchondral sclerosis and periarticular cystic degenerative change. No definite radiographic evidence of osteomyelitis. No suspicious bony lesions. Minimal plantar and retrocalcaneal enthesopathy. Soft tissues: No tibiotalar joint effusion. Achilles tendon appears normal. IMPRESSION: Advanced degenerative change of the tarsometatarsal joints without definite radiographic evidence of osteomyelitis. No evidence of acute bony abnormality. Dictated by: David Phipps M.D. on 03/21/2025 at 6:08 Approved by: David Phipps M.D. on 03/21/2025 at 6:26
[2025-03-20 08:00] VITALS: BP 138/64; PULSE 60; RESP 16; TEMP 36.2; O2SAT 98
[2025-03-20] MEDS: INSULIN LISPRO 100 UNIT/ML 3ML VIAL SUBCUT ×3 (08:12→21:21)
[2025-03-20] MEDS: INSULIN LISPRO 100 UNIT/ML 3ML VIAL 8 UNIT SUBCUT ×2 (08:12→12:13)
[2025-03-20] MEDS: INSULIN GLARGINE 100 UNIT/ML 3ML PEN 30 UNIT SUBCUT ×2 (08:13→21:21)
[2025-03-20] MEDS: HEPARIN 5,000 UNIT/ML VIAL 5000 UNIT SUBCUT ×2 (08:14→21:20)
[2025-03-20] MEDS: DOXYCYCLINE 100 MG in SODIUM CHLORIDE 0.9% 100 ML IV ×2 (08:23→21:19)
--- NOTE | 2025-03-20 11:39 | DIET.PN1 ---
Dietary Progress Note Assessment: consulted for diabetic ulcer, see consult note from 03/17. RD f/u. BG high over weekend, 200-300s, now back to <180 today. PO intakes continue to be 75-100%, meeting protein needs with a double meat serving and extra cottage cheese per DFM review. No further nutritional interventions needed. Ht: 193.04 cm Wt: 101 kg BMI: 27.1 Last BM: 03/20/25 (03/20/25 10:38) MNA: 14 Sebastian Score: 19 Diet: 03/16/25 Breakfast Carbohydrate Consistent Diet Diet Modifications: Carbohydrate level: Medium (3 CHO) Reflex DM orders: No Nutrition Percent Meal Consumed 100% 03/20/25 08:00 Percent Meal Consumed 100% 03/19/25 18:00 Percent Meal Consumed 100% 03/19/25 12:00 Percent Meal Consumed 100% 03/19/25 12:00 Percent Meal Consumed 75% 03/19/25 08:00 Percent Meal Consumed 75% 03/18/25 18:00 Labs: RBC 3.59 X10^6/uL (4.5-5.9) L 03/17/25 04:41 Hgb 10.6 g/dL (13.5-17.5) L 03/17/25 04:41 Hct 30.8 % (41-53) L 03/17/25 04:41 Creatinine 1.12 mg/dL (0.66-1.25) 03/17/25 04:41 Lactate 0.7 mmol/L (0.7-2.1) 03/16/25 16:05 Electronically Signed by: Kim Ndiaye 03/20/25 11:39 Clinical Dietitian [address] [address]
[2025-03-20 14:00] VITALS: BP 128/62; PULSE 64; RESP 18; TEMP 36.3; O2SAT 97
--- NOTE | 2025-03-20 16:07 | PM.CN ---
History of Present Illness Consult details Date Patient Seen: 03/20/25 Time Patient Seen: 15:30 Chief complaint: R Foot pain, Sent from PCP Narrative: The patient is a 65-year-old male with diabetes who was admitted to the hospital March 16, 2025 with a diabetic foot infection involving the right foot. The patient reportedly dropped a block of would on his right foot last week. He developed some ulcers and a foot became infected. He was given 1 dose of Rocephin and placed on Augmentin. When he returned to his primary care physician the infection was noted to have worsened. He was then admitted to the hospital for IV antibiotic therapy. An MRI showed inflammation consistent with infection but no evidence for osteomyelitis. Arterial Doppler showed adequate flow for healing. The patient also has had an ulcer on the plantar aspect of the left foot for about 2 months. He has not had any recent fever or chills. The patient reports that the redness and pain in his right foot has improved since admission. He does not smoke cigarettes. The patient has not had a recent hemoglobin A1c. Meds Home Medications and Allergies Home Medications ?Medication ?Instructions ?Recorded ?Confirmed ?Type metformin 1,000 mg tablet 1,000 mg PO BID 12/20/20 03/16/25 History blood sugar diagnostic (Contour #100 ea 12/21/20 03/16/25 Rx Test Strips) insulin glargine 100 unit/mL (3 64 unit (0.64 mL) SUBCUT QAM #15 mL 07/18/21 03/16/25 Rx mL) subcutaneous pen pen needle, diabetic 31 gauge x See Rx Instructions .Route 07/19/21 03/16/25 Rx 5/16 (BD Ultra-Fine Short Pen .COMPLEX #100 ea Needle) atorvastatin 20 mg tablet 20 mg PO DAILY 03/18/25 03/18/25 History Allergies Allergy/AdvReac Type Severity Reaction Status Date / Time Sulfa (Sulfonamide AdvReac Mild RASH Verified 03/12/21 10:10 Antibiotics) Review of Systems Constitutional Comments: No fever or chills Cardiovascular Comments: No chest pain Respiratory Comments: No shortness of breath Exam Vital Signs (past 8 hours): Oxygen Delivery Method Room Air Oxygen Flow Rate 0 Narrative Exam Narrative: Well-developed well-nourished male who is alert and oriented, no apparent distress Skin Other: Mild erythema and edema right foot, ulcer with necrotic tissue between 1st and 2nd, 2nd and 3rd, and 3rd and 4th toes on the right. There is significant tunneling between the 2nd and 3rd and between the 3rd and 4th toes. Ulcer plantar left foot over 1st metatarsal head. Neuro Other: Decreased lower extremity sensation Objective Labs 03/17/25 04:41 03/17/25 04:41 Labs: Laboratory Results - last 24 hr 03/19/25 03/19/25 03/20/25 16:45 20:56 07:59 POC Whole Bld Glucose 116 H D 157 H 163 H 03/20/25 03/20/25 11:20 15:48 POC Whole Bld Glucose 156 H 66 L PFSH Medical History Wears glasses Surgical History Anesthesia History of knee surgery History of nasal surgery Family History Father Cancer Diabetes mellitus Mother Blood disorder Grandfather History of heart disease Grandfather History of heart disease Social History household members: spouse Tobacco & Substance Use Smoking Status: Current some day smoker alcohol intake: former Assessment & Plan Assessment and plan (1) Type 2 diabetes mellitus with right diabetic foot infection: Status: Acute (2) Non-pressure chronic ulcer of other part of right foot with fat layer exposed: Status: Acute (3) Non-pressure chronic ulcer of other part of left foot with fat layer exposed: Status: Acute (4) Type 2 diabetes mellitus with diabetic polyneuropathy: Status: Acute Assessment & Plan narrative: The patient with multiple ulcers on right foot associated with infection and extensive tunneling. Recommend continuing IV antibiotic therapy, debridement, start dressing changes with quarter-inch rib and gauze coated with Iodosorb daily. Postop surgical shoe for pressure offloading, minimize ambulation. Ulcer over left 1st metatarsal head with no active infection. Plan for debridement, start dressing changes with Iodoflex, postop surgical shoe and felt surround pad for pressure offloading. Start protein, zinc, and vitamin-C supplementation. Follow up at wound center after discharge. Order x-ray left foot and hemoglobin A1c. Time-Based Coding :: [50 MINUTES] spent with patient and on the chart (including review of chart, obtaining history, exam, reviewing outside data, placing orders, documenting exam and treatment plan, and counseling patient) on [03/20/25].
--- NOTE | 2025-03-20 16:14 | CM.DPC ---
DCP Home Infusion Cont: Per MD, pt to have his PICC placed today and plan of discharge home on IV Ceftriaxone Q24 and switch Doxy to PO. Could be ready for d/c once PICC placed and home infusion set up. GRACE spoke to Juan from [employer] and he confirms that pt would have some out of pocket cost for the first week and then joni and Juan met bedside with pt and explained the cost and process and pt confirms he is agreeable to the cost and would prefer home infusion rather than go to SNF as [facility] does not have the option of daily infusion clinic. Juan working on scheduling an RN for bedside teach likely tomorrow Tues prior to d[facility]. Spouse plans to provide transport at d/c. Will need script for Ceftriaxone in the AM from to send to [facility]. Per early morning babysitter, no PICC nurse today so PICC will be placed tomorrow 03/21. SW made referral to Steven [facility]ANSEN for RN for PICC management. F2F completed but not sent yet. Juliet Perez MSW
--- NOTE | 2025-03-20 16:20 | PM.OP.1 ---
Operative Date/Time/Diagnoses Date of procedure: 03/20/25 Time of procedure: 15:45 Pre-op diagnosis: Diabetic foot ulcers Post-op diagnosis: same Procedure & Clinicians Procedure: Surgical debridement of diabetic ulcers both feet (45435) Same procedure(s) as scheduled: Yes Indications: The patient is a 65-year-old male with diabetes who presented with a right diabetic foot infection. He was found to have multiple ulcers on right foot and an ulcer on the left foot over the 1st metatarsal head. Surgeon: Justin Denis Anesthesia Type: None (none) Operative Notes Findings: Christine 3 diabetic ulcers between right 1st and 2nd toe, between right 2nd and 3rd toe, and between right 3rd and 4th toes with extensive tunneling. Christine 2 diabetic ulcer plantar left foot over 1st metatarsal head. Applied: none Estimated Blood Loss (mL): 5 Procedure in detail: Procedure was performed at the bedside. A #3 Curette was used to sharply debride skin, necrotic tissue, and subcutaneous tissue from each of the ulcers. Hemostasis was achieved with direct pressure. The patient tolerated procedure well without any discomfort. The ulcers were irrigated with sterile saline and packed with quarter-inch ribbon gauze coated with Iodosorb. The total of 2 sq cm was debrided. Complications: none Post-operative Condition: stable Plan for aftercare: Daily dressing changes with ribbon gauze coated with Iodosorb, follow up at wound center after discharge.
--- NOTE | 2025-03-20 17:12 | PM.PN.1 ---
Subjective Subjective Date Patient Seen: 03/20/25 Interval history: Chief complaint: Right foot infection diabetic with cellulitis History of present illness: 65-year-old male with past medical history of uncontrolled insulin-dependent diabetes, hyperlipidemia presents with right lower extremity wound infection. Per the patient's report, the patient excellently dropped a block of wood on right his foot last week. The patient started to notice that his foot got more swollen and has increased erythema. The patient did not seek medical help until last Thursday. The patient was placed on oral antibiotics (given one dose of Ceftriaxone and discharge home on Augmentin) and was asked to follow-up with his PCP today. However when the patient returned to his PCP the infection has worsened and the recommendation was to present to our ER for further management. Otherwise the patient denies any recent fever, chills, nausea, vomiting, diarrhea, chest pain or shortness of breath. WBC that was done earlier in the clinic was 16 and a culture swab that was done previously shows staff aureus with mixed evelyn In the emergency room, the patient was hemodynamically stable. WBC was 8.6 today and glucose was in the 40s. Patient was given D50 and diet started. Glucose improved above 120s. Creatinine 1.3. CRP 7.3. CT of the right foot shows signs with possible emphysematous infection versus ulceration. There is possible subtle erosions seen at the base of the second middle phalanx and head of the first proximal phalanx. Orthopedic surgeon was consulted and recommended an MRI. MRI did not show signs of osteomyelitis. Recommendations admit the patient for vancomycin and Zosyn. Hospital course: 03/18: Interval improvement in the cellulitic appearance of the foot on the left and left toe debridement was performed 03/19: Continued interval improvement although increased swelling maybe some increased erythema of the foot overall although this may just be fluid overload fluid wound culture demonstrated MSSA but still concerned about other organisms however antibiotics will be changed to ceftriaxone 2 g IV daily and IV c doxycycline 03/20: Notably less erythema of the foot today less painful to no fevers or chills seen by wound care who performed debridement consultation is at the bottom of the note imported from Dr. ko note Review of systems: No fever or chills No nausea vomiting No chest pain palpitations Physical exam: NAD HEENT unremarkable No labored respirations Abdomen nondistended Right lower extremity with marked improvement erythema and swelling around digits and toes there is desquamation to fat layer between toes and at the dorsal aspect 3rd MTP joint and desquamation on the metatarsal pads on the plantar surface Left lower extremity has a callus and ulcer at the right plantar MTP joint surface Assessment and plan: Diabetic Right foot wound infections with cellulitis. MRI of the left foot shows no sign of osteomyelitis. Continue IV vancomycin and Zosyn. IV fluid discontinued and antibiotics changed to ceftriaxone and clindamycin -Culture growing Prevotella Disiens and Staph. -Ortho reviewed MRI and recommended toe amputation to increase chances of clearing this infection. He would like to take a course of antibiotics first. Transient hypoglycemia. Glucose was in the 40s. Patient was given D50 and diet started. Glucose improved above 120s. Holding all diabetic (Glargine and Lantus) medication from home. Monitor glucose. Will give additional D5/D50 if needed. Hyperlipidemia. Resumed home statin. DVT prophylaxis heparin subcu. CODE STATUS full code. Disposition likely home in 2 to 3 days Time-Based Coding :: 35 minutes spent with patient and on the chart (including review of chart, obtaining history, exam, reviewing outside data, placing orders, documenting exam and treatment plan, and counseling patient) Imported from Wound Care documentation: The patient with multiple ulcers on right foot associated with infection and extensive tunneling. Recommend continuing IV antibiotic therapy, debridement, start dressing changes with quarter-inch rib and gauze coated with Iodosorb daily. Postop surgical shoe for pressure offloading, minimize ambulation. Ulcer over left 1st metatarsal head with no active infection. Plan for debridement, start dressing changes with Iodoflex, postop surgical shoe and felt surround pad for pressure offloading. Start protein, zinc, and vitamin-C supplementation. Follow up at wound center after discharge. Order x-ray left foot and hemoglobin A1c. Operative Notes Findings: Christine 3 diabetic ulcers between right 1st and 2nd toe, between right 2nd and 3rd toe, and between right 3rd and 4th toes with extensive tunneling. Christine 2 diabetic ulcer plantar left foot over 1st metatarsal head. Applied: none Estimated Blood Loss (mL): 5 Procedure in detail: Procedure was performed at the bedside. A #3 Curette was used to sharply debride skin, necrotic tissue, and subcutaneous tissue from each of the ulcers. Hemostasis was achieved with direct pressure. The patient tolerated procedure well without any discomfort. The ulcers were irrigated with sterile saline and packed with quarter-inch ribbon gauze coated with Iodosorb. The total of 2 sq cm was debrided. Complications: none Post-operative Condition: stable Plan for aftercare: Daily dressing changes with ribbon gauze coated with Iodosorb, follow up at wound center after discharge. Exam Vital Signs (past 8 hours): - 03/20/25 14:00 Temperature 97.4 F L Pulse Rate 64 Respiratory Rate 18 Blood Pressure 128/62 Pulse Oximetry 97 Oxygen Flow Rate 0 Oxygen Delivery Method Room Air Oxygen Flow Rate 0 Objective Labs 03/17/25 04:41 03/17/25 04:41 Labs: Laboratory Results - last 24 hr 03/19/25 03/20/25 03/20/25 20:56 07:59 11:20 POC Whole Bld Glucose 157 H 163 H 156 H 03/20/25 03/20/25 15:48 16:27 POC Whole Bld Glucose 66 L 81 PFSH Medical History Wears glasses Surgical History Anesthesia History of knee surgery History of nasal surgery Family History Father Cancer Diabetes mellitus Mother Blood disorder Grandfather History of heart disease Grandfather History of heart disease Social History household members: spouse alcohol intake: former Assessment & Plan Time-Based Coding :: [TOTAL MINUTES] spent with patient and on the chart (including review of chart, obtaining history, exam, reviewing outside data, placing orders, documenting exam and treatment plan, and counseling patient) on [DATE]. Quality VTE Deep Vein Thrombosis/Pulmonary Embolism Present on Admission: No
[2025-03-20] MEDS: cefTRIAXone 2,000 MG in SODIUM CHLORIDE 0.9% 100 ML 200 MG IV (17:25)
[2025-03-20 19:55] VITALS: BP 128/67; PULSE 70; RESP 16; TEMP 36.1; O2SAT 98
[2025-03-20] MEDS: ATORVASTATIN 20 MG TABLET PO (21:19)
[2025-03-21 00:15] VITALS: BP 142/71; PULSE 66; RESP 16; TEMP 36.2; O2SAT 99
[2025-03-21 05:30] VITALS: BP 149/70; PULSE 61; RESP 16; TEMP 36.3; O2SAT 98
[2025-03-21 08:43] VITALS: BP 134/69; PULSE 56; RESP 18; TEMP 36.2; O2SAT 98
[2025-03-21] MEDS: INSULIN LISPRO 100 UNIT/ML 3ML VIAL SUBCUT ×2 (08:49→12:10)
[2025-03-21] MEDS: HEPARIN 5,000 UNIT/ML VIAL 5000 UNIT SUBCUT (08:49)
[2025-03-21] MEDS: INSULIN LISPRO 100 UNIT/ML 3ML VIAL 8 UNIT SUBCUT ×2 (08:49→12:10)
[2025-03-21] MEDS: INSULIN GLARGINE 100 UNIT/ML 3ML PEN 30 UNIT SUBCUT (08:50)
--- NOTE | 2025-03-21 10:29 | DI.RAD.S_ITS ---
PROCEDURE: XR CHEST FOR PICC 1V INDICATIONS: verify PICC line placement COMPARISON: [facility], CR, XR CHEST 1V, 03/16/2025, 16:19. FINDINGS: PICC was placed by the intravenous therapy team from the left side. Tip of PICC projecting to the area of lower superior vena cava. IMPRESSION: Tip of PICC projects to the area of lower superior vena cava. Approved by: Darshan Marino M.D. on 03/21/2025 at 10:49
--- NOTE | 2025-03-21 10:52 | CM.DPC ---
Addendum entered by AXEL Tran 03/21/25 11:16: Update-pt will now d/c home after he meets with [facility] today at 3:00pm. Family will transport him home. Original Note: DCP Cont. Reviewed EMR and team rounds for pt's medical status and updates. Pt is getting a PICC placed today, faxed the antibiotic script to [facility], left message for Dr. Jones wanting to confirm if he is going to follow pt's OP IV antibiotic course. Discharge will be tomorrow, 03/22 after [facility] does their teach, will confirm time once known.
[2025-03-21] MEDS: DOXYCYCLINE 100 MG in SODIUM CHLORIDE 0.9% 100 ML IV (11:07)
[2025-03-21 12:00] VITALS: BP 125/58; PULSE 60; RESP 16; TEMP 36.5; O2SAT 97
--- NOTE | 2025-03-31 19:34 | PM.DS.1 ---
History of Present Illness History of Present Illness Date Patient Seen: 03/21/25 Chief complaint: R Foot pain, Sent from PCP Narrative: Chief complaint: Right foot infection diabetic with cellulitis History of present illness: 65-year-old male with past medical history of uncontrolled insulin-dependent diabetes, hyperlipidemia presents with right lower extremity wound infection. Per the patient's report, the patient excellently dropped a block of wood on right his foot last week. The patient started to notice that his foot got more swollen and has increased erythema. The patient did not seek medical help until last Thursday. The patient was placed on oral antibiotics (given one dose of Ceftriaxone and discharge home on Augmentin) and was asked to follow-up with his PCP today. However when the patient returned to his PCP the infection has worsened and the recommendation was to present to our ER for further management. Otherwise the patient denies any recent fever, chills, nausea, vomiting, diarrhea, chest pain or shortness of breath. WBC that was done earlier in the clinic was 16 and a culture swab that was done previously shows staff aureus with mixed evelyn In the emergency room, the patient was hemodynamically stable. WBC was 8.6 today and glucose was in the 40s. Patient was given D50 and diet started. Glucose improved above 120s. Creatinine 1.3. CRP 7.3. CT of the right foot shows signs with possible emphysematous infection versus ulceration. There is possible subtle erosions seen at the base of the second middle phalanx and head of the first proximal phalanx. Orthopedic surgeon was consulted and recommended an MRI. MRI did not show signs of osteomyelitis. Recommendations admit the patient for vancomycin and Zosyn. Hospital course: 03/18: Interval improvement in the cellulitic appearance of the foot on the left and left toe debridement was performed 03/19: Continued interval improvement although increased swelling maybe some increased erythema of the foot overall although this may just be fluid overload fluid wound culture demonstrated MSSA but still concerned about other organisms however antibiotics will be changed to ceftriaxone 2 g IV daily and IV c doxycycline 03/20: Notably less erythema of the foot today less painful to no fevers or chills seen by wound care who performed debridement consultation is at the bottom of the note imported from Dr. ko note 03/21: ERYTHEMA NEARLY GONE PATIENT DISCHARGED ON ORAL ANTIBIOTICS Review of systems: No fever or chills No nausea vomiting No chest pain palpitations Physical exam: NAD HEENT unremarkable No labored respirations Abdomen nondistended Right lower extremity with marked improvement erythema and swelling around digits and toes there is desquamation to fat layer between toes and at the dorsal aspect 3rd MTP joint and desquamation on the metatarsal pads on the plantar surface Left lower extremity has a callus and ulcer at the right plantar MTP joint surface Assessment and plan: Diabetic Right foot wound infections with cellulitis. MRI of the left foot shows no sign of osteomyelitis. Continue IV vancomycin and Zosyn. IV fluid discontinued and antibiotics changed to ceftriaxone and clindamycin -Culture growing Prevotella Disiens and Staph. -Ortho reviewed MRI and recommended toe amputation to increase chances of clearing this infection. He would like to take a course of antibiotics first. Transient hypoglycemia. Glucose was in the 40s. Patient was given D50 and diet started. Glucose improved above 120s. Holding all diabetic (Glargine and Lantus) medication from home. Monitor glucose. Will give additional D5/D50 if needed. Hyperlipidemia. Resumed home statin. DVT prophylaxis heparin subcu. CODE STATUS full code. Disposition likely home in 2 to 3 days Time-Based Coding :: 35 minutes spent with patient and on the chart (including review of chart, obtaining history, exam, reviewing outside data, placing orders, documenting exam and treatment plan, and counseling patient) Imported from Wound Care documentation: The patient with multiple ulcers on right foot associated with infection and extensive tunneling. Recommend continuing IV antibiotic therapy, debridement, start dressing changes with quarter-inch rib and gauze coated with Iodosorb daily. Postop surgical shoe for pressure offloading, minimize ambulation. Ulcer over left 1st metatarsal head with no active infection. Plan for debridement, start dressing changes with Iodoflex, postop surgical shoe and felt surround pad for pressure offloading. Start protein, zinc, and vitamin-C supplementation. Follow up at wound center after discharge. Order x-ray left foot and hemoglobin A1c. Discharge Providers Provider Date of admission: 03/16/25 21:55 Discharge Date: 03/21/25 Primary care physician: Doctor Betsy MD Consults: 03/16/25 21:53 Consult to Occupational Therapy Evaluate & Treat Comment: Physician Instructions: Evaluate and treat Consult to Physical Therapy Evaluate & Treat Comment: Physician Instructions: Evaluate and Treat 03/16/25 23:04 Consult to Orthopedic Surgery Routine Comment: Consulting Provider: Dat Jones Reason for consultation: Toe infection Has provider been notified: Yes 03/17/25 08:25 Consult to Inpatient Wound Care Nurse Routine Comment: Reason for consultation: diabetic foot wounds Has provider been notified: No 03/19/25 11:30 Consult to Physical Therapy Evaluate & Treat Comment: Cellulitis Physician Instructions: Set up FWW for home use 03/20/25 03:26 Consult to Dietitian, Adult Routine Comment: Reason For Exam: diabetic ulcers 03/20/25 08:57 Consult to Wound Care Routine Comment: Consulting Provider: [facility] 03/23/25 07:31 Consult to Home Health Routine Comment: Diabetic toe ulcer, cellulitis, PICC mngmt Reason For Exam: Set up HH RN/PT for discharge to home Discharge provider: Jose A Fuentes MD Exam Vital Signs (past 8 hours): Oxygen Delivery Method Room Air Oxygen Flow Rate 0 Objective Labs 03/17/25 04:41 03/17/25 04:41 PFSH Medical History Wears glasses Surgical History Anesthesia History of knee surgery History of nasal surgery Family History Father Cancer Diabetes mellitus Mother Blood disorder Grandfather History of heart disease Grandfather History of heart disease Social History household members: spouse alcohol intake: former Discharge Plan Discharge Plan Patient Disposition: Home Health Service Transfer to: Home Health, Other Discharge orders & Medications Prescriptions: New ceftriaxone 2 gram Recon Soln 2,000 mg IV Q24H Qty: 10 0RF doxycycline hyclate 100 mg capsule 100 mg PO BID Qty: 20 0RF Continued insulin glargine 100 unit/mL (3 mL) insulin pen 64 unit SUBCUT QAM Qty: 15 5RF Rx Instructions: INJECT 64-100 UNITS UNDER THE SKIN DAILY. INCREASING 1-2 UNITS DAILY NEEDED TO MAINTAIN FBS. pen needle, diabetic [BD Ultra-Fine Short Pen Needle] 31 gauge x 5/16 needle See Rx Instructions .ROUTE .COMPLEX Qty: 100 3RF Dose Instruction: USE TO INJECT LANTUS SOLOSTAR Rx Instructions: USE TO INJECT LANTUS SOLOSTAR atorvastatin 20 mg tablet 20 mg PO DAILY (DME) Contour Test Strips Strip See Rx Instructions .ROUTE .MEDSUPPLY Qty: 100 5RF Rx Instructions: As directed, 2 times per day metformin 1,000 mg tablet 1,000 mg PO BID Follow up/Referrals: Miscellaneous,Doctor, [Primary Care Provider, Medical] Skin/Wound/Dressing Care Report to your healthcare provider any signs of infection, such as:: chills, fever, night sweats, unusual drainage and unusual redness Dressing: Change dressing daily or if becomes dirty or wet Visit Report/Discharge Packet Instructions: DI for Cellulitis -- Adult, DI for Diabetic Foot Ulcer Stand Alone Forms: Patient Portal/API, Stroke Signs & Symptoms Discharge Data Primary Care Provider: Betsy,Doctor [facility] Deep Vein Thrombosis/Pulmonary Embolism Present on Admission: No
== END 2025-03-21 14:58 | disposition home health service (06) | DRG 623 ==
LOC: ED 21:35 → AC 21:56
PROVIDERS: Family Medicine; Admitting Provider Internal Medicine; Emergency Provider Student in an Organized Health Care Education/Training Program; Referring Provider Student in an Organized Health Care Education/Training Program; Visit Provider Internal Medicine
DX: E11.621 Type 2 diabetes mellitus with foot ulcer (principal); E11.52 Type 2 diabetes mellitus with diabetic peripheral angiopathy with gangrene; L03.115 Cellulitis of right lower limb; I96 Gangrene, not elsewhere classified; E11.628 Type 2 diabetes mellitus with other skin complications; F17.200 Nicotine dependence, unspecified, uncomplicated; E11.649 Type 2 diabetes mellitus with hypoglycemia without coma; E78.5 Hyperlipidemia, unspecified; B95.61 Methicillin susceptible Staphylococcus aureus infection as the cause of diseases classified elsewhere; B96.89 Other specified bacterial agents as the cause of diseases classified elsewhere; L97.522 Non-pressure chronic ulcer of other part of left foot with fat layer exposed; L97.512 Non-pressure chronic ulcer of other part of right foot with fat layer exposed; E11.42 Type 2 diabetes mellitus with diabetic polyneuropathy; Z79.4 Long term (current) use of insulin; Z79.84 Long term (current) use of oral hypoglycemic drugs
CPT/HCPCS: 11042; 36415; 36569; 71045; 73630; 73701; 73720; 80048; 80053; 80202; 82962; 83605; 83690; 84145; 85025; 85610; 85651; 85730; 86140; 87040; 87070; 87075; 87077; 87147; 87186; 87205; 93005; 93010; 93926; 96365; 96367; 96375; 96376; 97116; 97162; 97165; 97535; 99233; 99284; A9579; J0696; J1644; J1815; J2405; J2543; Q9967

== ENCOUNTER → 2025-03-23 09:07 | Outpatient (CLI) | payer MEDICARE, OTHER, SELFPAY ==
[2025-03-16 22:46] VITALS: BMI 27.1
--- NOTE | 2025-03-20 16:32 | PC.RNWOUND ---
Wound eval and dressing application Wounds debrided by Dr. Denis. Three deep areas noted, deepest between 4/5 toes, also open at base of 3rd and 2nd toes. Sanguineous drainage noted to all, slough to bases. Cleansed with normal saline. Iodosorb buttered gauze ribbon (1/4 in gauze ribbon preferred, 1/2 inch used) filling wound between 4/5 toes and at base of 3rd. Iodosorb over base of 2nd toe. Gauze to cover, then ABD pad, secured with kerlix/roll gauze. Diabetic ulcer on left plantar first met head. Iodosorb to base, foam to cover, secured with roll gauze.
== END ==
PROVIDERS: Referring Provider Family Medicine; Visit Provider Nurse Practitioner Family
DX: E11.621 Type 2 diabetes mellitus with foot ulcer (principal); E11.42 Type 2 diabetes mellitus with diabetic polyneuropathy; L97.512 Non-pressure chronic ulcer of other part of right foot with fat layer exposed; L97.422 Non-pressure chronic ulcer of left heel and midfoot with fat layer exposed; L84 Corns and callosities; L03.115 Cellulitis of right lower limb; L53.9 Erythematous condition, unspecified; I30.9 Acute pericarditis, unspecified
CPT/HCPCS: 11042; 99204; 99214

== ENCOUNTER → 2025-03-23 11:14 | Outpatient (CLI) | payer MEDICARE, OTHER, SELFPAY ==
[2025-03-16 22:46] VITALS: BMI 27.1
[2025-03-23 11:58] LABS: Add Manual Diff / Slide Review NO; Hematocrit 35.3 % (41-53); Hemoglobin 11.9 g/dL (13.5-17.5); Lymphocytes Absolute Auto 1600 /uL (1100-4500); Mean Corpuscular HGB Conc 33.7 % (30-36); Mean Corpuscular Hemoglobin 28.8 PG (26-34); Mean Corpuscular Volume 85.6 fL (80-100); Platelet Count 411 X10^3/uL (150-400)
[2025-03-23 12:19] LABS: Alanine Aminotransferase 102 IU/L (<50); Albumin 3.7 g/dL (3.5-5.0); Albumin Globulin Ratio 1.1 (1.0-2.8); Alkaline Phosphatase 138 U/L (38-126); Blood Urea Nitrogen 26 mg/dL (9-20); Calcium 9.6 mg/dL (8.4-10.2); Carbon Dioxide 24 mmol/L (22-32); Chloride 108 mmol/L (98-107); Estimated Glomerular Filt Rate > 60 mL/min (>60); Globulin 3.4 g/dL (1.7-4.1); Glucose 75 mg/dL (70-99); HEMOLYSIS < 15 (0-50); Potassium 4.1 mmol/L (3.4-5.1); Sodium 141 mmol/L (137-145); Total Protein 7.1 g/dL (6.3-8.2)
== END ==
PROVIDERS: Referring Provider Family Medicine; Visit Provider Family Medicine
DX: E11.9 Type 2 diabetes mellitus without complications (principal); L97.529 Non-pressure chronic ulcer of other part of left foot with unspecified severity
CPT/HCPCS: 36415; 80053; 85025

== ENCOUNTER → 2025-03-28 11:24 | Outpatient (CLI) | payer MEDICARE, OTHER, SELFPAY ==
[2025-03-16 22:46] VITALS: BMI 27.1
== END ==
PROVIDERS: PCP Family Medicine; Referring Provider Family Medicine; Visit Provider Surgery
DX: E11.621 Type 2 diabetes mellitus with foot ulcer (principal); L97.516 Non-pressure chronic ulcer of other part of right foot with bone involvement without evidence of necrosis; L97.512 Non-pressure chronic ulcer of other part of right foot with fat layer exposed; L97.422 Non-pressure chronic ulcer of left heel and midfoot with fat layer exposed; E11.42 Type 2 diabetes mellitus with diabetic polyneuropathy; L08.9 Local infection of the skin and subcutaneous tissue, unspecified; L84 Corns and callosities; E11.628 Type 2 diabetes mellitus with other skin complications
CPT/HCPCS: 11042

== ENCOUNTER → 2025-03-28 13:02 | Outpatient (CLI) | payer MEDICARE, OTHER, SELFPAY ==
[2025-03-16 22:46] VITALS: BMI 27.1
--- NOTE | 2025-04-18 17:54 | DIAB.MNT ---
Initial Diabetes Medical Nutrition Therapy Assessment Name: Yan Lombardi Date: 03/28/25 Time: 105-205p Dx: Type II Diabetes Provider: Sam Hartley presents for initial DM visit accompanied by Renetta. Reports dx of T2Dm 15 years ago. Denies any FH of DM. Endorses right LE wound. Recent hospitalization for cellulitis. Endorses >9% hgA1c x 14 years Diet recall: 8am: bush and eggs OR oats 1/4c dry with berries or apples, nuts, cream 12p: tuna with pickles and veggies on 9 medium crackers +/- berries with cottage cheese 2-4p: cottage cheese with berries 5-7p: fish with veggies and winter squash 2/3c OR 6oz steak and salad HS: nothing or cottage cheese with yogurt water 4-6x 16-20oz coffee bone broth Anthropometrics: Ht: 6'4 Wt: 220-225# reported Weight history: Physical Activity: Not discussed today Self-Monitoring Blood Glucose: Endorses lows at 3-4am with symptoms, sweaty, anxiety. Treats with cup of yogurt. taking vit c x 200mg. FSL CGM use. Feels his Reanna has been 30-100mg/dl off. 20% very high 28% high 51% in range 1% low 0% very low avmg/dl GMI: 7.6% Diabetes Medications: 500mg Metformin TID 1mg Ozempic weekly 40-50u Glargine HS Pertinent Labs: HgA1c; 10.4% February 2025 reported Past Medical History: (Last Updated 04/06/25 @ 12:05 by Ya Hernandez RN) Cellulitis of foot, right Cellulitis of right lower limb Wears glasses Nutrition Rx: Carbohydrates: Meal:45g Snack:15-30g Nutrition Diagnosis: - Increased protein needs r/t LE wound aeb pt report - Nutrition and food related knowledge deficit r/t limited previous nutrition/DM education aeb pt report Intervention: This participant was very receptive. Provided appropriate educational handouts. Discussed the following topics: Completed intake assessment. Discussed barriers to care. Checking FBG to compare CGM results Variability in CGM CGM types and options Wound MNT: vitamin C, protein, fluids Recommended servings for carbohydrates at meals and snacks Rule of 15 tx for lows Created SMART goals for patient self-care and success. Goals: Check FBG Continue with protein at each meal/snack Enjoy berries in moderation Follow-up: SUSAN THOMPSON follow-up in 2-3 weeks Tg Henderson RDN, DONNA Certified Diabetes Care and Manager Sales Training P: [phone] Thank you for this referral
== END ==
PROVIDERS: PCP Family Medicine
DX: E11.9 Type 2 diabetes mellitus without complications (principal); Z79.84 Long term (current) use of oral hypoglycemic drugs; Z79.4 Long term (current) use of insulin; Z79.85 Long-term (current) use of injectable non-insulin antidiabetic drugs; Z71.3 Dietary counseling and surveillance
CPT/HCPCS: 97802

== ENCOUNTER → 2025-04-04 09:51 | Outpatient (CLI) | payer MEDICARE, OTHER, SELFPAY ==
[2025-03-16 22:46] VITALS: BMI 27.1
== END ==
PROVIDERS: PCP Family Medicine; Referring Provider Naturopath; Visit Provider Surgery
DX: E11.621 Type 2 diabetes mellitus with foot ulcer (principal); L97.516 Non-pressure chronic ulcer of other part of right foot with bone involvement without evidence of necrosis; L97.512 Non-pressure chronic ulcer of other part of right foot with fat layer exposed; L97.522 Non-pressure chronic ulcer of other part of left foot with fat layer exposed; L08.9 Local infection of the skin and subcutaneous tissue, unspecified; G62.9 Polyneuropathy, unspecified
CPT/HCPCS: 11042; 99213

== ENCOUNTER → 2025-04-26 11:27 | Outpatient (CLI) | payer MEDICARE, OTHER, SELFPAY ==
[2025-03-16 22:46] VITALS: BMI 27.1
== END ==
PROVIDERS: PCP Family Medicine; Referring Provider Family Medicine; Visit Provider Nurse Practitioner Family
DX: E11.621 Type 2 diabetes mellitus with foot ulcer (principal); L97.515 Non-pressure chronic ulcer of other part of right foot with muscle involvement without evidence of necrosis; L97.512 Non-pressure chronic ulcer of other part of right foot with fat layer exposed; L98.8 Other specified disorders of the skin and subcutaneous tissue; L84 Corns and callosities; L92.9 Granulomatous disorder of the skin and subcutaneous tissue, unspecified; E11.40 Type 2 diabetes mellitus with diabetic neuropathy, unspecified; Z79.84 Long term (current) use of oral hypoglycemic drugs
CPT/HCPCS: 11042; 97597; 99213

== ENCOUNTER → 2025-05-02 09:11 | Outpatient (CLI) | payer MEDICARE, OTHER, SELFPAY ==
[2025-03-16 22:46] VITALS: BMI 27.1
== END ==
PROVIDERS: PCP Family Medicine; Referring Provider Family Medicine; Visit Provider Surgery
DX: E11.621 Type 2 diabetes mellitus with foot ulcer (principal); L97.515 Non-pressure chronic ulcer of other part of right foot with muscle involvement without evidence of necrosis; L97.512 Non-pressure chronic ulcer of other part of right foot with fat layer exposed; L98.8 Other specified disorders of the skin and subcutaneous tissue; E11.40 Type 2 diabetes mellitus with diabetic neuropathy, unspecified; Z79.84 Long term (current) use of oral hypoglycemic drugs
CPT/HCPCS: 11042; 15275; Q4187

== ENCOUNTER → 2025-05-09 09:32 | Outpatient (CLI) | payer MEDICARE, OTHER, SELFPAY ==
[2025-03-16 22:46] VITALS: BMI 27.1
== END ==
PROVIDERS: PCP Family Medicine; Referring Provider Family Medicine; Visit Provider Surgery
DX: E11.621 Type 2 diabetes mellitus with foot ulcer (principal); L97.515 Non-pressure chronic ulcer of other part of right foot with muscle involvement without evidence of necrosis; L97.512 Non-pressure chronic ulcer of other part of right foot with fat layer exposed; L98.8 Other specified disorders of the skin and subcutaneous tissue; E11.40 Type 2 diabetes mellitus with diabetic neuropathy, unspecified; Z79.84 Long term (current) use of oral hypoglycemic drugs
CPT/HCPCS: 11042; 15275; Q4187

== ENCOUNTER → 2025-05-16 09:38 | Outpatient (CLI) | payer MEDICARE, OTHER, SELFPAY ==
[2025-03-16 22:46] VITALS: BMI 27.1
== END ==
LOC: WC 09:39
PROVIDERS: PCP Family Medicine; Referring Provider Family Medicine; Visit Provider Surgery
DX: E11.621 Type 2 diabetes mellitus with foot ulcer (principal); L97.512 Non-pressure chronic ulcer of other part of right foot with fat layer exposed; L97.515 Non-pressure chronic ulcer of other part of right foot with muscle involvement without evidence of necrosis; E11.40 Type 2 diabetes mellitus with diabetic neuropathy, unspecified
CPT/HCPCS: 11042; 15275; 99213; Q4186

== ENCOUNTER → 2025-05-23 10:05 | Outpatient (CLI) | payer MEDICARE, OTHER, SELFPAY ==
[2025-03-16 22:46] VITALS: BMI 27.1
== END ==
LOC: WC 10:08
PROVIDERS: PCP Family Medicine; Referring Provider Family Medicine; Visit Provider Surgery
DX: E11.621 Type 2 diabetes mellitus with foot ulcer (principal); L97.515 Non-pressure chronic ulcer of other part of right foot with muscle involvement without evidence of necrosis; L97.512 Non-pressure chronic ulcer of other part of right foot with fat layer exposed; L97.522 Non-pressure chronic ulcer of other part of left foot with fat layer exposed; E11.42 Type 2 diabetes mellitus with diabetic polyneuropathy; L03.115 Cellulitis of right lower limb; L03.116 Cellulitis of left lower limb; L08.9 Local infection of the skin and subcutaneous tissue, unspecified; R60.0 Localized edema; L53.8 Other specified erythematous conditions; L84 Corns and callosities
CPT/HCPCS: 11042; 87070; 87075; 87205; 99214

== ENCOUNTER 2025-05-23 11:04 | Inpatient (IN) | payer MEDICARE, OTHER, SELFPAY ==
[2025-03-16 22:46] VITALS: BMI 27.1
[2025-05-23] VITALS (24 sets, daily range): BP systolic 118–159; BP diastolic 56–74; PULSE 68–88; RESP 18–20; TEMP 36.6–37.7; O2SAT 96–99; BMI 25.8
[2025-05-23 11:55] LABS: Add Manual Diff / Slide Review NO; Hematocrit 30.6 % (41-53); Hemoglobin 10.5 g/dL (13.5-17.5); Lymphocytes Absolute Auto 500 /uL (1100-4500); Mean Corpuscular HGB Conc 34.3 % (30-36); Mean Corpuscular Hemoglobin 29.9 PG (26-34); Mean Corpuscular Volume 87.1 fL (80-100); Platelet Count 200 X10^3/uL (150-400)
--- NOTE | 2025-05-23 11:55 | ED_ITS ---
HPI - Wound/Laceration <Marcela Kimbrough, - Last Filed: 05/26/25 07:02> General Chief Complaint: Wound/Laceration Stated Complaint: Infection in left foot , x 2 days Time Seen by Provider: 05/23/25 11:06 Source: patient Mode of arrival: Ambulatory History of Present Illness HPI narrative: Patient is a 65-year-old male who has diabetic right foot ulcer was admitted March 16 through March 21, growing Prevotella Disiens and Staph, discharged with PICC line, today he presents directly from wound care with a left foot wound. Dr. Duenas reports that both feet were healing up properly however today the left foot wound opened up yesterday. He has pictures that he has taken for us he has new dressings on it. He thinks that patient may need to be readmitted for a left diabetic foot ulcer. Patient is quite adamant he does not want any kind of surgery or amputation. Antibiotics works for his right foot so he would like to try again. Reports having chills last night but no diaphoresis or sweats. Vitals are stable currently no concern for sepsis. He is also currently on doxycycline. Related Data Home Medications ?Medication ?Instructions ?Recorded ?Confirmed metformin 1,000 mg tablet 1,000 mg PO BID 12/20/20 atorvastatin 20 mg tablet 20 mg PO DAILY 03/18/2505/08 insulin glargine 100 unit/mL (3 30 - 40 unit SUBCUT QA M 05/23/25 05/23/25 mL) subcutaneous pen semaglutide 2 mg/dose (8 mg/3 mL) 2 mg SUBCUT DAILY 05/25/25 subcutaneous pen injector (Ozempic) Previous Rx's ?Medication ?Instructions ?Recorded blood sugar diagnostic (Contour #100 ea 12/21/20 Test Strips) pen needle, diabetic 31 gauge x See Rx Instructions .R oute 07/19/2101/20 (BD Ultra-Fine Short Pen .COMPLEX #100 ea Needle) doxycycline hyclate 100 mg capsule 100 mg PO BID #20 c aps 03/20/25 cefdinir 300 mg capsule 300 mg PO BID #20 caps 05/25 Allergies Allergy/AdvReac Type Severity Reaction Status Date / Time Sulfa (Sulfonamide AdvReac Mild RASH Verified 05/23/25 21:23 Antibiotics) Patient History <Marcela Kimbrough DO - Last Filed: 05/26/25 07:02> Medical History Cellulitis of right lower limb Cellulitis of foot, right Wears glasses Surgical History Anesthesia History of knee surgery History of nasal surgery Family History Father Cancer Diabetes mellitus Mother Blood disorder Grandfather History of heart disease Grandfather History of heart disease Social History household members: spouse Smoking Status: Current some day smoker alcohol intake: former Exam <Marcela Kimbrough DO - Last Filed: 05/26/25 07:02> Initial Vital Signs Initial Vital Signs: Vital Signs Pulse Rate 88 05/23/25 11:12 Pulse Oximetry 98 05/23/25 11:12 GENERAL: Alert very pleasant well-appearing 65-year-old male and in no acute distress. HEENT: Head atraumatic,EOMI, pupils reactive, face symmetric, moist mucous membranes CARDIOVASCULAR: Regular rate and rhythm without murmurs, rubs or gallops. RESPIRATORY: Breath sounds equal bilaterally, no wheezes rales or rhonchi. EXTREMITIES: Normal range of motion, no clubbing or edema. Neurovascularly intact NEUROLOGICAL: Alert and oriented x4.Normal gait and speech. SKIN: Left foot great toe ulcer noted on the plantar side dressing in place According to wound care notes and pictures 3 cm in length 2 cm why 0.3 cm in depth diagnosed as a grade 2. <Paola Abbott MD - Last Filed: 05/23/25 19:50> Initial Vital Signs Initial Vital Signs: Vital Signs Pulse Rate 88 05/23/25 11:12 Pulse Oximetry 98 05/23/25 11:12 Course <Marcela Kimbrough DO - Last Filed: 05/26/25 07:02> Orders Ordered: Discontinued Medications Acetaminophen (Acetaminophen 325 Mg Tablet) 975 mg PO NOW ONE Stop: 05/23/25 16:41 Last Admin: 05/23/25 17:19 Dose: 975 mg Documented By: JORJE Acetaminophen (Acetaminophen 325 Mg Tablet) 650 mg PO Q6H PRN PRN Reason: Fever/Mild Pain (1-3) Albuterol (Albuterol 2.5 Mg/3 Ml Neb (Adult)) 2.5 mg INH [id number] PRN PRN Reason: Dyspnea Atorvastatin Calcium (Atorvastatin 20 Mg Tablet) 20 mg PO DAILY [facility] Stop: 05/24/25 09:00 Atorvastatin Calcium (Atorvastatin 20 Mg Tablet) 20 mg PO BEDTIME [facility] Last Admin: 05/24/25 22:09 Dose: 20 mg Documented By: TD Benzonatate (Benzonatate 100 Mg Capsule) 100 mg PO TID PRN PRN Reason: Cough Bisacodyl (Bisacodyl 10 Mg Supp) 10 mg UT DAILY PRN PRN Reason: Constipation Calcium Carbonate (Calcium Carbonate 500 Mg Tab) 1,000 mg PO Q4HR PRN PRN Reason: Dyspepsia Hydralazine HCl (Hydralazine 20 Mg/Ml Vial) 10 mg IV Q6HR PRN PRN Reason: SBP>= 160 or DBP >=110 Hydromorphone HCl (Hydromorphone Hcl 0.5 Mg/0.5 Ml Syringe) 0.5 mg IV Q2H PRN PRN Reason: Pain, Severe (7-10) Meropenem 500 mg/ Sodium (Chloride) 100 mls @ 200 mls/hr IV NOW ONE Stop: 05/23/25 19:44 Last Admin: 05/23/25 21:00 Dose: Not Given Documented By: JEB Vancomycin HCl 1,500 mg/ (Sodium Chloride) 100 mls @ 100 mls/hr IV Q12H [facility] Last Admin: 05/23/25 21:00 Dose: Not Given Documented By: TD Meropenem 1 gm/ Sodium (Chloride) 100 mls @ 200 mls/hr IV Q8H [facility] Last Admin: 05/25/25 13:45 Dose: 200 mls/hr Documented By: Infusion: 05/25/25 05:20 Dose: Infused Documented By: Admin: 05/25/25 04:38 Dose: 200 mls/hr Documented By: Infusion: 05/24/25 22:40 Dose: Infused Documented By: Admin: 05/24/25 22:06 Dose: 200 mls/hr Documented By: Infusion: 05/24/25 13:36 Dose: Infused Documented By: Admin: 05/24/25 13:06 Dose: 200 mls/hr Documented By: Infusion: 05/24/25 06:32 Dose: Infused Documented By: Admin: 05/24/25 05:37 Dose: 200 mls/hr Documented By: Infusion: 05/23/25 22:40 Dose: Infused Documented By: Admin: 05/23/25 22:08 Dose: 200 mls/hr Documented By: TD Vancomycin HCl 1,500 mg/ (Sodium Chloride) 500 mls @ 500 mls/hr IV Q12H [facility] Last Infusion: 05/23/25 23:20 Dose: Infused Documented By: Admin: 05/23/25 22:00 Dose: 500 mls/hr Documented By: TD Vancomycin HCl/Dextrose (Vancomycin) 2,000 mg in 400 mls @ 200 mls/hr IV Q24H [facility] Last Infusion: 05/24/25 16:55 Dose: Infused Documented By: Admin: 05/24/25 14:55 Dose: 200 mls/hr Documented By: HARRIS Insulin Glargine (Insulin Glargine 100 Unit/Ml 3ml Pen) 64 unit SUBCUT DAILY [facility] Last Admin: 05/24/25 06:32 Dose: Not Given Documented By: Admin: 05/24/25 03:38 Dose: 64 unit Documented By: JEB Co-signed By: PORSCHE Insulin Glargine (Insulin Glargine 100 Unit/Ml 3ml Pen) 40 unit SUBCUT 1700 [facility] Insulin Glargine (Insulin Glargine 100 Unit/Ml 3ml Pen) 50 unit SUBCUT 1700 [facility] Last Admin: 05/24/25 17:15 Dose: Not Given Documented By: Admin: 05/24/25 17:07 Dose: 50 unit Documented By: HARRIS Co-signed By: EJ Insulin Human Lispro (Insulin Lispro 100 Unit/Ml 3ml Vial) 0 unit SUBCUT ACHS [facility]; Protocol Last Admin: 05/23/25 21:35 Dose: 3 unit Documented By: TD Co-signed By: AKT Insulin Human Lispro (Insulin Lispro 100 Unit/Ml 3ml Vial) 0 unit SUBCUT Q4H [facility]; Protocol Last Admin: 05/24/25 17:06 Dose: 7 unit Documented By: HARRIS Co-signed By: MS Admin: 05/24/25 12:00 Dose: Not Given Documented By: Admin: 05/24/25 08:05 Dose: 5 unit Documented By: HARRIS Co-signed By: Admin: 05/24/25 03:38 Dose: 7 unit Documented By: JEB Co-signed By: PORSCHE Insulin Human Lispro (Insulin Lispro 100 Unit/Ml 3ml Vial) 0 unit SUBCUT ACHS [facility]; Protocol Last Admin: 05/25/25 11:58 Dose: 4 unit Documented By: JOSE Co-signed By: HELEN Admin: 05/25/25 07:43 Dose: Not Given Documented By: Admin: 05/24/25 22:11 Dose: 2 unit Documented By: JEB Co-signed By: (2) Admin: 05/24/25 17:24 Dose: Not Given Documented By: HARRIS Magnesium Chloride (Magnesium Chloride 64 Mg Tablet) 128 mg PO NOW ONE Stop: 05/24/25 10:31 Last Admin: 05/24/25 10:57 Dose: 128 mg Documented By: HARRIS Melatonin (Melatonin 3 Mg Tablet) 9 mg PO BEDTIME PRN PRN Reason: insomnia Metformin HCl (Metformin 500 Mg Tablet) 500 mg PO NOW ONE Stop: 05/23/25 19:02 Last Admin: 05/23/25 19:07 Dose: 500 mg Documented By: JORJE Naloxone HCl (Naloxone 0.4 Mg/Ml Vial) 0.2 mg IV Q2MIN PRN PRN Reason: Opiate Reversal Ondansetron HCl (Ondansetron 4 Mg/2 Ml Inj) 4 mg IV Q8HR PRN PRN Reason: Nausea And Vomiting Oxycodone HCl (Oxycodone Ir 5 Mg Tablet) 5 mg PO Q3H PRN PRN Reason: Pain, Moderate (4-6) Vancomycin HCl (Vancomycin Per Pharmacy) 1 request MISC NOW ONE Stop: 05/23/25 19:46 Last Admin: 05/24/25 01:08 Dose: Not Given Documented By: JEB Vancomycin HCl (Vancomycin Trough) 1 request MISC 1430 [facility] Stop: 05/26/25 14:31 Vancomycin HCl (Vancomycin Peak) 1 request MISC 1800 [facility] Stop: 05/26/25 18:01 Vital Signs Vital signs: Vital Signs - 8 hr 05/23/25 12:00 05/23/25 12:00 05/23/25 12:30 Temperature Pulse Rate 84 77 Blood Pressure 120/56 L Pulse Oximetry 98 97 05/23/25 12:31 05/23/25 12:31 05/23/25 13:00 Temperature Pulse Rate 78 Blood Pressure 134/67 119/56 L Pulse Oximetry 97 05/23/25 13:00 05/23/25 13:30 05/23/25 14:00 Temperature Pulse Rate 75 88 80 Blood Pressure Pulse Oximetry 96 98 98 05/23/25 14:01 05/23/25 14:01 05/23/25 14:30 Temperature Pulse Rate 80 78 Blood Pressure 122/59 L Pulse Oximetry 98 98 05/23/25 14:30 05/23/25 15:00 05/23/25 15:00 Temperature Pulse Rate 74 Blood Pressure 134/60 124/62 Pulse Oximetry 99 05/23/25 15:30 05/23/25 15:30 05/23/25 15:58 Temperature 100 F H Pulse Rate 68 Blood Pressure 127/65 Pulse Oximetry 98 05/23/25 16:00 05/23/25 16:01 05/23/25 16:01 Temperature Pulse Rate 72 72 Blood Pressure 150/70 H Pulse Oximetry 98 98 05/23/25 16:30 05/23/25 16:31 05/23/25 16:43 Temperature Pulse Rate 75 77 Blood Pressure 150/70 H Pulse Oximetry 99 98 05/23/25 16:43 05/23/25 17:19 05/23/25 19:30 Temperature 99.4 F 100 F H 99.3 F Pulse Rate 76 Blood Pressure Pulse Oximetry 98 <Paola Abbott MD - Last Filed: 05/23/25 19:50> Orders Ordered: Discontinued Medications Acetaminophen (Acetaminophen 325 Mg Tablet) 975 mg PO NOW ONE Stop: 05/23/25 16:41 Last Admin: 05/23/25 17:19 Dose: 975 mg Documented By: JORJE Acetaminophen (Acetaminophen 325 Mg Tablet) 650 mg PO Q6H PRN PRN Reason: Fever/Mild Pain (1-3) Albuterol (Albuterol 2.5 Mg/3 Ml Neb (Adult)) 2.5 mg INH [id number] PRN PRN Reason: Dyspnea Atorvastatin Calcium (Atorvastatin 20 Mg Tablet) 20 mg PO DAILY [facility] Stop: 05/24/25 09:00 Atorvastatin Calcium (Atorvastatin 20 Mg Tablet) 20 mg PO BEDTIME [facility] Last Admin: 05/24/25 22:09 Dose: 20 mg Documented By: JEB Benzonatate (Benzonatate 100 Mg Capsule) 100 mg PO TID PRN PRN Reason: Cough Bisacodyl (Bisacodyl 10 Mg Supp) 10 mg UT DAILY PRN PRN Reason: Constipation Calcium Carbonate (Calcium Carbonate 500 Mg Tab) 1,000 mg PO Q4HR PRN PRN Reason: Dyspepsia Hydralazine HCl (Hydralazine 20 Mg/Ml Vial) 10 mg IV Q6HR PRN PRN Reason: SBP>= 160 or DBP >=110 Hydromorphone HCl (Hydromorphone Hcl 0.5 Mg/0.5 Ml Syringe) 0.5 mg IV Q2H PRN PRN Reason: Pain, Severe (7-10) Meropenem 500 mg/ Sodium (Chloride) 100 mls @ 200 mls/hr IV NOW ONE Stop: 05/23/25 19:44 Last Admin: 05/23/25 21:00 Dose: Not Given Documented By: TD Vancomycin HCl 1,500 mg/ (Sodium Chloride) 100 mls @ 100 mls/hr IV Q12H [facility] Last Admin: 05/23/25 21:00 Dose: Not Given Documented By: TD Meropenem 1 gm/ Sodium (Chloride) 100 mls @ 200 mls/hr IV Q8H [facility] Last Admin: 05/25/25 13:45 Dose: 200 mls/hr Documented By: Infusion: 05/25/25 05:20 Dose: Infused Documented By: Admin: 05/25/25 04:38 Dose: 200 mls/hr Documented By: Infusion: 05/24/25 22:40 Dose: Infused Documented By: Admin: 05/24/25 22:06 Dose: 200 mls/hr Documented By: Infusion: 05/24/25 13:36 Dose: Infused Documented By: Admin: 05/24/25 13:06 Dose: 200 mls/hr Documented By: Infusion: 05/24/25 06:32 Dose: Infused Documented By: Admin: 05/24/25 05:37 Dose: 200 mls/hr Documented By: Infusion: 05/23/25 22:40 Dose: Infused Documented By: Admin: 05/23/25 22:08 Dose: 200 mls/hr Documented By: TD Vancomycin HCl 1,500 mg/ (Sodium Chloride) 500 mls @ 500 mls/hr IV Q12H [facility] Last Infusion: 05/23/25 23:20 Dose: Infused Documented By: Admin: 05/23/25 22:00 Dose: 500 mls/hr Documented By: TD Vancomycin HCl/Dextrose (Vancomycin) 2,000 mg in 400 mls @ 200 mls/hr IV Q24H [facility] Last Infusion: 05/24/25 16:55 Dose: Infused Documented By: Admin: 05/24/25 14:55 Dose: 200 mls/hr Documented By: HARRIS Insulin Glargine (Insulin Glargine 100 Unit/Ml 3ml Pen) 64 unit SUBCUT DAILY [facility] Last Admin: 05/24/25 06:32 Dose: Not Given Documented By: Admin: 05/24/25 03:38 Dose: 64 unit Documented By: JEB Co-signed By: PORSCHE Insulin Glargine (Insulin Glargine 100 Unit/Ml 3ml Pen) 40 unit SUBCUT 1700 [facility] Insulin Glargine (Insulin Glargine 100 Unit/Ml 3ml Pen) 50 unit SUBCUT 1700 [facility] Last Admin: 05/24/25 17:15 Dose: Not Given Documented By: Admin: 05/24/25 17:07 Dose: 50 unit Documented By: HARRIS Co-signed By: ANA LILIA Insulin Human Lispro (Insulin Lispro 100 Unit/Ml 3ml Vial) 0 unit SUBCUT ACHS [facility]; Protocol Last Admin: 05/23/25 21:35 Dose: 3 unit Documented By: JEB Co-signed By: AKT Insulin Human Lispro (Insulin Lispro 100 Unit/Ml 3ml Vial) 0 unit SUBCUT Q4H [facility]; Protocol Last Admin: 05/24/25 17:06 Dose: 7 unit Documented By: HARRIS Co-signed By: Admin: 05/24/25 12:00 Dose: Not Given Documented By: Admin: 05/24/25 08:05 Dose: 5 unit Documented By: HARRIS Co-signed By: Admin: 05/24/25 03:38 Dose: 7 unit Documented By: JEB Co-signed By: PORSCHE Insulin Human Lispro (Insulin Lispro 100 Unit/Ml 3ml Vial) 0 unit SUBCUT ACHS [facility]; Protocol Last Admin: 05/25/25 11:58 Dose: 4 unit Documented By: JOSE Co-signed By: HELEN Admin: 05/25/25 07:43 Dose: Not Given Documented By: Admin: 05/24/25 22:11 Dose: 2 unit Documented By: JEB Co-signed By: (2) Admin: 05/24/25 17:24 Dose: Not Given Documented By: HARRIS Magnesium Chloride (Magnesium Chloride 64 Mg Tablet) 128 mg PO NOW ONE Stop: 05/24/25 10:31 Last Admin: 05/24/25 10:57 Dose: 128 mg Documented By: HARRIS Melatonin (Melatonin 3 Mg Tablet) 9 mg PO BEDTIME PRN PRN Reason: insomnia Metformin HCl (Metformin 500 Mg Tablet) 500 mg PO NOW ONE Stop: 05/23/25 19:02 Last Admin: 05/23/25 19:07 Dose: 500 mg Documented By: JORJE Naloxone HCl (Naloxone 0.4 Mg/Ml Vial) 0.2 mg IV Q2MIN PRN PRN Reason: Opiate Reversal Ondansetron HCl (Ondansetron 4 Mg/2 Ml Inj) 4 mg IV Q8HR PRN PRN Reason: Nausea And Vomiting Oxycodone HCl (Oxycodone Ir 5 Mg Tablet) 5 mg PO Q3H PRN PRN Reason: Pain, Moderate (4-6) Vancomycin HCl (Vancomycin Per Pharmacy) 1 request [facility] NOW ONE Stop: 05/23/25 19:46 Last Admin: 05/24/25 01:08 Dose: Not Given Documented By: JEB Vancomycin HCl (Vancomycin Trough) 1 request [facility] 1430 [facility] Stop: 05/26/25 14:31 Vancomycin HCl (Vancomycin Peak) 1 request [facility] 1800 [facility] Stop: 05/26/25 18:01 Vital Signs Vital signs: Vital Signs - 8 hr 05/23/25 12:00 05/23/25 12:00 05/23/25 12:30 Temperature Pulse Rate 84 77 Blood Pressure 120/56 L Pulse Oximetry 98 97 05/23/25 12:31 05/23/25 12:31 05/23/25 13:00 Temperature Pulse Rate 78 Blood Pressure 134/67 119/56 L Pulse Oximetry 97 05/23/25 13:00 05/23/25 13:30 05/23/25 14:00 Temperature Pulse Rate 75 88 80 Blood Pressure Pulse Oximetry 96 98 98 05/23/25 14:01 05/23/25 14:01 05/23/25 14:30 Temperature Pulse Rate 80 78 Blood Pressure 122/59 L Pulse Oximetry 98 98 05/23/25 14:30 05/23/25 15:00 05/23/25 15:00 Temperature Pulse Rate 74 Blood Pressure 134/60 124/62 Pulse Oximetry 99 05/23/25 15:30 05/23/25 15:30 05/23/25 15:58 Temperature 100 F H Pulse Rate 68 Blood Pressure 127/65 Pulse Oximetry 98 05/23/25 16:00 05/23/25 16:01 05/23/25 16:01 Temperature Pulse Rate 72 72 Blood Pressure 150/70 H Pulse Oximetry 98 98 05/23/25 16:30 05/23/25 16:31 05/23/25 16:43 Temperature Pulse Rate 75 77 Blood Pressure 150/70 H Pulse Oximetry 99 98 05/23/25 16:43 05/23/25 17:19 05/23/25 19:30 Temperature 99.4 F 100 F H 99.3 F Pulse Rate 76 Blood Pressure Pulse Oximetry 98 MDM - Wound/Laceration <Marcela Kimbrough, DO - Last Filed: 05/26/25 07:02> Lab Data 05/23/25 11:40 05/25/25 07:55 Labs: Lab Results 05/23/25 05/23/25 Range/Units 11:40 17:26 WBC 10.3 (4.5-11.0) X10^3/uL RBC 3.51 L (4.5-5.9) X10^6/uL Hgb 10.5 L (13.5-17.5) g/dL Hct 30.6 L (41-53) % MCV 87.1 (80-100) fL MCH 29.9 (26-34) PG MCHC 34.3 (30-36) % RDW 14.6 (11.6-14.8) % Plt Count 200 (150-400) X10^3/uL Neut % (Auto) 89.9 H (50-75) % Lymph % (Auto) 5.2 L (25-40) % [place] % (Auto) 4.5 (3-14) % Eos % (Auto) 0.3 L (2-4) % Baso % (Auto) 0.1 (0-2) % Neut # (Auto) 9300 H (4144-8385) /uL Lymph # (Auto) 500 L (1325-9913) /uL [place] # (Auto) 500 (0-900) /uL Eos # (Auto) 0 (0-450) /uL Baso # (Auto) 0 (0-100) /uL ESR 56 H (0-15) MM/HR Sodium 135 L (137-145) mmol/L Potassium 4.2 (3.4-5.1) mmol/L Chloride 104 (98-107) mmol/L Carbon Dioxide 21 L (22-32) mmol/L BUN 28 H (9-20) mg/dL Creatinine 1.13 (0.66-1.25) mg/dL Estimated GFR > 60 (>60) mL/min BUN/Creatinine Ratio 24.8 H (6-22) Glucose 119 H (70-99) mg/dL POC Whole Bld Glucose 200 H (70-99) mg/dL Lactate 0.9 (0.7-2.1) mmol/L Calcium 9.0 (8.4-10.2) mg/dL Total Bilirubin 0.9 (0.2-1.3) mg/dL AST 27 (17-59) IU/L ALT 19 (<50) IU/L Alkaline Phosphatase 89 (38-126) U/L C-Reactive Protein 4.5 H (<1.0) mg/dL Total Protein 7.4 (6.3-8.2) g/dL Albumin 4.1 (3.5-5.0) g/dL Globulin 3.3 (1.7-4.1) g/dL Albumin/Globulin Ratio 1.2 (1.0-2.8) MDM Narrative Medical decision making narrative: MDM CC: Left foot ulcer Complicating co-morbidities: Diabetes previous right foot ulcer Data collected from: [ ] Medical records reviewed: Admission from March 16 through March 21, wound care records and pictures have been sent with patient and reviewed Differential considered: Osteomyelitis diabetic foot ulcer sepsis cellulitis Exam documented above, pertinent findings include: Left foot ulcer described as above Lab Test results independently reviewed as above. Pertinent findings: WBCs 10.3 mild anemia hemoglobin 10.5 hematocrit 30.6 ESR 56 previously 170 CRP 4.5 previously 7.3 Lactate 0.9 Independently reviewed EKG as above Imaging studies independently reviewed: MRI left foot: Consultations: [ ] Treatments: Re-evaluations: [ ] Discussion: Patient is 65-year-old male history of diabetes and foot ulcers presenting today with a left foot ulcer from wound care. Wound care concerned that he has a new infection. Previously admitted for right foot infection currently on doxycycline for that now failing outpatient treatment. Vitals are stable he has no leukocytosis he actually has improvement in inflammatory markers such as ESR and CRP. Getting MRI which is not happening until 6:00 p.m. Patient is agreeable to sit and wait until 6:00 p.m.. Discussion with him he absolutely does not want any kind of amputation or surgery. He overall appears very well vitals are stable improvement in labs Patient signed out to Dr. Abbott <Paola Abbott MD - Last Filed: 05/23/25 19:50> Lab Data Labs: Lab Results 05/23/25 05/23/25 Range/Units 11:40 17:26 WBC 10.3 (4.5-11.0) X10^3/uL RBC 3.51 L (4.5-5.9) X10^6/uL Hgb 10.5 L (13.5-17.5) g/dL Hct 30.6 L (41-53) % MCV 87.1 (80-100) fL MCH 29.9 (26-34) PG MCHC 34.3 (30-36) % RDW 14.6 (11.6-14.8) % Plt Count 200 (150-400) X10^3/uL Neut % (Auto) 89.9 H (50-75) % Lymph % (Auto) 5.2 L (25-40) % [place] % (Auto) 4.5 (3-14) % Eos % (Auto) 0.3 L (2-4) % Baso % (Auto) 0.1 (0-2) % Neut # (Auto) 9300 H (1942-0513) /uL Lymph # (Auto) 500 L (4212-4023) /uL [place] # (Auto) 500 (0-900) /uL Eos # (Auto) 0 (0-450) /uL Baso # (Auto) 0 (0-100) /uL ESR 56 H (0-15) MM/HR Sodium 135 L (137-145) mmol/L Potassium 4.2 (3.4-5.1) mmol/L Chloride 104 (98-107) mmol/L Carbon Dioxide 21 L (22-32) mmol/L BUN 28 H (9-20) mg/dL Creatinine 1.13 (0.66-1.25) mg/dL Estimated GFR > 60 (>60) mL/min BUN/Creatinine Ratio 24.8 H (6-22) Glucose 119 H (70-99) mg/dL POC Whole Bld Glucose 200 H (70-99) mg/dL Lactate 0.9 (0.7-2.1) mmol/L Calcium 9.0 (8.4-10.2) mg/dL Total Bilirubin 0.9 (0.2-1.3) mg/dL AST 27 (17-59) IU/L ALT 19 (<50) IU/L Alkaline Phosphatase 89 (38-126) U/L C-Reactive Protein 4.5 H (<1.0) mg/dL Total Protein 7.4 (6.3-8.2) g/dL Albumin 4.1 (3.5-5.0) g/dL Globulin 3.3 (1.7-4.1) g/dL Albumin/Globulin Ratio 1.2 (1.0-2.8) Imaging Data MRI foot: Radiologist's Impression: PROCEDURE: MR FOOT LT WO/W CON INDICATIONS: DM foot ulcer TECHNIQUE: Multiphasic, multisequence MRI of the forefoot was performed, before and after intravenous contrast administration. COMPARISON: [facility], CR, XR FOOT LT MIN 3V, 03/20/2025, 16:16. [facility], MR, MR FOOT RT WO/W CON, 03/16/2025, 19:07. FINDINGS: Image quality: Diagnostic Bones: Advanced arthritic changes throughout the foot, worst in the midfoot, with arch collapse. Likely arthritis related erosions are seen throughout the tarsal bones and bases of the metatarsals. Scattered associated mild marrow edema is present. Per calf at the lateral base of the 1st proximal phalanx, there is mild marrow edema without confluent loss of the intrinsic marrow signal. Mild associated enhancement is also present. Soft tissues: No rim enhancing fluid collection. Soft tissue ulceration and enhancement with edema on T2 weighted images is seen surrounding the 1st MTP joint, with ulceration extending to the webspace between the 1st and 2nd rays. IMPRESSION: Soft tissue ulceration surrounding the 1st MTP joint, extending to the webspace between the 1st and 2nd rays. There is likely mild reactive edema and enhancement at the lateral base of the 1st proximal phalanx. No large area of intrinsic T1 signal loss to suggest significant osteomyelitis/necrotic bone. Advanced arthritic changes throughout the foot, worst in the midfoot, probably Charcot joint. Dictated by: Jose Carreon M.D. on 05/23/2025 at 18:42 MDM Narrative Medical decision making narrative: MDM CC: Left foot ulcer Complicating co-morbidities: Diabetes previous right foot ulcer Data collected from: [ ] Medical records reviewed: Admission from March 16 through March 21, wound care records and pictures have been sent with patient and reviewed Differential considered: Osteomyelitis diabetic foot ulcer sepsis cellulitis Exam documented above, pertinent findings include: Left foot ulcer described as above Lab Test results independently reviewed as above. Pertinent findings: WBCs 10.3 mild anemia hemoglobin 10.5 hematocrit 30.6 ESR 56 previously 170 CRP 4.5 previously 7.3 Lactate 0.9 Independently reviewed EKG as above Discussion: Patient is 65-year-old male history of diabetes and foot ulcers presenting today with a left foot ulcer from wound care. Wound care concerned that he has a new infection. Previously admitted for right foot infection currently on doxycycline for that now failing outpatient treatment. Vitals are stable he has no leukocytosis he actually has improvement in inflammatory markers such as ESR and CRP. Getting MRI which is not happening until 6:00 p.m. Patient is agreeable to sit and wait until 6:00 p.m.. Discussion with him he absolutely does not want any kind of amputation or surgery. He overall appears very well vitals are stable improvement in labs Patient signed out to Dr. Abbott Care is assumed, patient is independently examined, chart is reviewed Imaging studies independently reviewed: MRI left foot: IMPRESSION: Soft tissue ulceration surrounding the 1st MTP joint, extending to the webspace between the 1st and 2nd rays. There is likely mild reactive edema and enhancement at the lateral base of the 1st proximal phalanx. No large area of intrinsic T1 signal loss to suggest significant osteomyelitis/necrotic bone. Treatments: Based on previous wound culture March 16 methicillin sensitive staph I am going to begin vancomycin and ceftriaxone. He has been on oral doxycycline and seems to be progressing Re-evaluations and discussion 65-year-old gentleman with continued diabetic foot ulcers recent hospitalization with prolonged PICC line IV antibiotic treatment, wound care was seen at wound care today the physician was concerned that his right forefoot ulceration was worsening. Lab work shows a significantly elevated CRP but white count is not elevated. MRI shows soft tissue ulceration surrounding the 1st MTP joint extending to the webspace between the 1st and 2nd rays. Likely mild reactive edema and enhancement at the lateral base of the 1st proximal phalanx. There is no area of intrinsic T1 signal to suggest osteomyelitis. Patient did restart his own doxycycline 3-4 days ago. In light of oral antibiotics that should have been appropriate showing slightly progressive disease, inflammation with wound seemingly worsening with out osteomyelitis at this time my recommendation is hospitalization for IV antibiotics to make sure that he is clearly improving hopefully home with oral antibiotics and avoiding the need for prolonged IV treatment. Previous wound culture showed methicillin sensitive staph. We will begin broad-spectrum coverage to include staff as well as Pseudomonas with meropenem and vancomycin with narrowing coverage per the hospitalist service. We will discuss with our hospitalist service. Patient is aware of recommendations Discharge Plan Departure Patient Disposition: Admitted As Inpatient Clinical Impression: Diabetic infection of right foot Admit Date/Time: 05/23/25 19:58 Admit Provider: Yuri Miles
--- NOTE | 2025-05-23 12:06 | DI.MRI.S_ITS ---
PROCEDURE: MR FOOT LT WO/W CON INDICATIONS: DM foot ulcer TECHNIQUE: Multiphasic, multisequence MRI of the forefoot was performed, before and after intravenous contrast administration. COMPARISON: [facility], CR, XR FOOT LT MIN 3V, 03/20/2025, 16:16. [facility], MR, MR FOOT RT WO/W CON, 03/16/2025, 19:07. FINDINGS: Image quality: Diagnostic Bones: Advanced arthritic changes throughout the foot, worst in the midfoot, with arch collapse. Likely arthritis related erosions are seen throughout the tarsal bones and bases of the metatarsals. Scattered associated mild marrow edema is present. Per calf at the lateral base of the 1st proximal phalanx, there is mild marrow edema without confluent loss of the intrinsic marrow signal. Mild associated enhancement is also present. Soft tissues: No rim enhancing fluid collection. Soft tissue ulceration and enhancement with edema on T2 weighted images is seen surrounding the 1st MTP joint, with ulceration extending to the webspace between the 1st and 2nd rays. IMPRESSION: Soft tissue ulceration surrounding the 1st MTP joint, extending to the webspace between the 1st and 2nd rays. There is likely mild reactive edema and enhancement at the lateral base of the 1st proximal phalanx. No large area of intrinsic T1 signal loss to suggest significant osteomyelitis/necrotic bone. Advanced arthritic changes throughout the foot, worst in the midfoot, probably Charcot joint. Dictated by: Jose Carreon M.D. on 05/23/2025 at 18:42 Approved by: Jose Carreon M.D. on 05/23/2025 at 18:47
[2025-05-23 12:07] LABS: Lactate (Lactic Acid) 0.9 mmol/L (0.7-2.1)
[2025-05-23 12:11] LABS: Alanine Aminotransferase 19 IU/L (<50); Albumin 4.1 g/dL (3.5-5.0); Albumin Globulin Ratio 1.2 (1.0-2.8); Alkaline Phosphatase 89 U/L (38-126); Blood Urea Nitrogen 28 mg/dL (9-20); Calcium 9.0 mg/dL (8.4-10.2); Carbon Dioxide 21 mmol/L (22-32); Chloride 104 mmol/L (98-107); Estimated Glomerular Filt Rate > 60 mL/min (>60); Globulin 3.3 g/dL (1.7-4.1); Glucose 119 mg/dL (70-99); HEMOLYSIS < 15 (0-50); Potassium 4.2 mmol/L (3.4-5.1); Sodium 135 mmol/L (137-145); Total Protein 7.4 g/dL (6.3-8.2)
[2025-05-23] MEDS: ACETAMINOPHEN 325 MG TABLET 975 MG PO (17:19)
[2025-05-23] MEDS: INSULIN LISPRO 100 UNIT/ML 3ML VIAL SUBCUT (21:35)
[2025-05-23] MEDS: VANCOMYCIN 1,500 MG in SODIUM CHLORIDE 0.9% 500 ML 500 MG IV (22:00)
[2025-05-23] MEDS: MEROPENEM 1 GM in SODIUM CHLORIDE 0.9% 100 ML IV (22:08)
--- NOTE | 2025-05-24 00:48 | PC.RNWOUND ---
Left foot wound^^ Left foot wound^^ Left foot sole wound^^ Right foot wounds^^
--- NOTE | 2025-05-24 02:36 | PM.HP.1 ---
History of Present Illness History of Present Illness Chief complaint: Infection in left foot , x 2 days Narrative: 65 years old male with history of hyperlipidemia, insulin-dependent diabetes mellitus type 2, presented to the ER for left foot wound check. The patient had admission in March for right foot ulcer growing Prevotella and staph infection and was sent home on PICC line with antibiotics. Follow-up with wound care clinic and yesterday he was referred to the ED for MRI to rule out osteomyelitis. The patient thinks the infection is getting worse. Denies any fever, chills or diaphoresis. He wanted to try antibiotics and declined any kind of surgery. Laboratory shows WBC 10.3, H&H 10.5/30.6, sodium 135, potassium 4.2, creatinine 1.13, blood sugar 119, LFT normal, C-reactive protein 4.5. Left foot MRI shows soft tissue ulceration surrounding the first MTP joint with mild reactive edema. No osteomyelitis/necrotic bone noted. He was given Tylenol, meropenem 500 mg IV, metformin 500 mg p.o. and vancomycin 1.5 g IV. [facility] Medical History (Updated 05/23/25 @ 19:43 by Poala Abbott MD) Cellulitis of right lower limb Cellulitis of foot, right Wears glasses Surgical History Anesthesia History of knee surgery History of nasal surgery Family History Father Cancer Diabetes mellitus Mother Blood disorder Grandfather History of heart disease Grandfather History of heart disease Social History household members: spouse Smoking Status: Current some day smoker alcohol intake: former Meds Home Medications and Allergies Home Medications ?Medication ?Instructions ?Recorded ?Confirmed ?Type metformin 1,000 mg tablet 1,000 mg PO BID 12/20/20 05/23/25 History blood sugar diagnostic (Contour #100 ea 12/21/20 05/23/25 Rx Test Strips) pen needle, diabetic 31 gauge x See Rx Instructions .Route 07/19/21 05/23/25 Rx 16 (BD Ultra-Fine Short Pen .COMPLEX #100 ea Needle) atorvastatin 20 mg tablet 20 mg PO DAILY 03/18/25 05/23/25 History doxycycline hyclate 100 mg capsule 100 mg PO BID #20 caps 03/20/25 05/23/25 Rx insulin glargine 100 unit/mL (3 30 - 40 unit SUBCUT QAM 05/23/25 05/23/25 History mL) subcutaneous pen semaglutide 2 mg/dose (8 mg/3 mL) 2 mg SUBCUT 05/23/25 History subcutaneous pen injector (Ozempic) Allergies Allergy/AdvReac Type Severity Reaction Status Date / Time Sulfa (Sulfonamide AdvReac Mild RASH Verified 05/23/25 21:23 Antibiotics) Review of Systems Review of Systems ROS: Yes All systems reviewed with the patient and are negative except as otherwise documented Constitutional Constitutional: Reports as per HPI and Reports system reviewed and no additional complaints, except as documented Eyes Eyes: Reports as per HPI and Reports system reviewed and no additional complaints, except as documented ENT Ears, Nose, Mouth, and Throat: Yes as per HPI and Yes system reviewed and no additional complaints, except as documented Cardiovascular Cardiovascular: Reports system reviewed and no additional complaints, except as documented Respiratory Respiratory: Reports system reviewed and no additional complaints, except as documented Gastrointestinal Gastrointestinal: Reports system reviewed and no additional complaints, except as documented Genitourinary Genitourinary: Reports system reviewed and no additional complaints, except as documented Musculoskeletal Musculoskeletal: Reports system reviewed and no additional complaints, except as documented, Reports abnormal gait and Reports numbness Neurologic Neurologic: Reports system reviewed and no additional complaints, except as documented, Reports abnormal gait, Reports confusion and Reports numbness Psychiatric Psychiatric: Reports system reviewed and no additional complaints, except as documented and Reports confusion Exam Vital Signs (past 8 hours): - 05/23/25 19:30 05/23/25 21:06 Temperature 99.3 F 98 F Pulse Rate 88 Respiratory Rate 18 Blood Pressure 122/74 Pulse Oximetry 97 Oxygen Flow Rate 0 Oxygen Delivery Method Room Air Oxygen Flow Rate 0 Const General: cooperative, comfortable and well developed Orientation: alert and oriented x3 HENMT Head: normal to inspection, normocephalic and atraumatic Face and sinus: normal facial exam Mouth: oral mucosae normal and moist mucous membranes Throat: posterior oropharynx normal Eyes General: appearance normal, both eyes and all related structures Pupils: PERRL EOM: EOM intact bilaterally Neck Neck: normal visual inspection and full ROM Chest Chest: normal inspection of the chest Resp Effort & Inspection: normal respiratory effort and able to speak in complete sentences Auscultation: clear to auscultation bilaterally Cardio Palpation: normal PMI Rate: regular rate Rhythm: regular rhythm Heart Sounds: S1 normal and S2 normal GI Inspection: normal to inspection Palpation: soft and no hepatosplenomegaly Auscultation: normal bowel sounds Skin General: no rashes or lesions noted Lesions: no lesions Rashes: no rashes Trauma: no lacerations or abrasions Neuro General: patient alert, patient awake, patient oriented x3 and no focal motor deficits Cranial Nerves: CN's II-XI intact bilaterally Cognition: normal cognition Speech: speech normal Gait: normal gait Motor: muscle tone normal throughout Sensory Exam: no sensory deficits noted Extrem General: full ROM and no calf tenderness Psych Appearance: grossly normal Mental Status: mental status grossly normal Speech and Movement: speech and movement normal Objective Labs 05/23/25 11:40 05/23/25 11:40 Labs: Laboratory Results - last 24 hr 05/23/25 05/23/25 05/23/25 11:40 17:26 20:54 WBC 10.3 RBC 3.51 L Hgb 10.5 L Hct 30.6 L MCV 87.1 MCH 29.9 MCHC 34.3 RDW 14.6 Plt Count 200 Neut % (Auto) 89.9 H Lymph % (Auto) 5.[address] [place] % (Auto) 4.5 Eos % (Auto) 0.3 L Baso % (Auto) 0.1 Neut # (Auto) 9300 H Lymph # (Auto) [address] [place] # (Auto) 500 Eos # (Auto) 0 Baso # (Auto) 0 ESR 56 H Sodium 135 L Potassium 4.2 Chloride 104 Carbon Dioxide 21 L BUN 28 H Creatinine 1.13 Estimated GFR > 60 BUN/Creatinine Ratio 24.8 H Glucose 119 H POC Whole Bld Glucose 200 H 320 H D Lactate 0.9 Calcium 9.0 Total Bilirubin 0.9 AST 27 ALT 19 Alkaline Phosphatase 89 C-Reactive Protein 4.5 H Total Protein 7.4 Albumin 4.1 Globulin 3.3 Albumin/Globulin Ratio 1.2 Assessment & Plan Assessment & Plan narrative: Acute on chronic diabetic ulcer/cellulitis left foot. -Antibiotics of Vancomycin, meropenem, -Blood cultures times 2, wound cultures, wound care. -IV fluids -Pain medications when necessary, -check for MRSA and if negative, can DC vancomycin -if Blood culture negative, Place PICC and DC with home IV abx -Podiatry/surgery consult Diabetes mellitus, type II with long-term current use of insulin, uncontrolled with hyperglycemia, -check HbA1c. -Continue to monitor blood sugar. -Continue diabetic diet with sliding scale insulins with NovoLog sliding scale. -Long-acting insulins in appropriate dosing with Detemir. -Hold metformin during the hospital stay -hypoglycemia protocol as needed Hyperlipidemia. Restart atorvastatin Care provided by Telehealth service using synchronized audio-video technology for this visit. Prior to the discussion the clinician obtained the patient's consent for Telehealth service. Supporting E/M code and modifier 95 for Telemedicine service documented. All requirements are met and documented. Time-Based Coding :: [TOTAL MINUTES] spent with patient and on the chart (including review of chart, obtaining history, exam, reviewing outside data, placing orders, documenting exam and treatment plan, and counseling patient) on [DATE]. Quality VTE Deep Vein Thrombosis/Pulmonary Embolism Present on Admission: No MIPS - Admit I confirm the patient?s Advance Care Plan is present, Code status is documented, Surrogate decision maker is in patient?s record [If Yes, STOP here]: Yes MIPS - Meds 'Current medications' to include all prescriptions, [id number] products, herbals, cannabis/cannabidiol products, and vitamin/mineral/dietary (nutritional) supplements. I have utilized all available resources to obtain, update, or review the patient?s current medications. [If Yes, STOP here]: Yes
[2025-05-24] MEDS: INSULIN GLARGINE 100 UNIT/ML 3ML PEN 64 UNIT SUBCUT (03:38)
[2025-05-24] MEDS: INSULIN LISPRO 100 UNIT/ML 3ML VIAL SUBCUT ×4 (03:38→22:11)
[2025-05-24 03:43] LABS: MRSA (Nasal) PCR NOT DETECTED (Not Detect)
[2025-05-24 04:03] VITALS: BP 128/59; PULSE 89; RESP 20; TEMP 37.3; O2SAT 98
[2025-05-24 04:43] LABS: Blood Urea Nitrogen 28 mg/dL (9-20); Calcium 8.5 mg/dL (8.4-10.2); Carbon Dioxide 22 mmol/L (22-32); Chloride 103 mmol/L (98-107); Estimated Glomerular Filt Rate > 60 mL/min (>60); Glucose 398 mg/dL (70-99); HEMOLYSIS < 15 (0-50); Magnesium 1.5 mg/dL (1.6-2.3); Potassium 4.3 mmol/L (3.4-5.1); Sodium 132 mmol/L (137-145)
[2025-05-24 04:44] LABS: Cholesterol 105 mg/dL (140-199); HDL Cholesterol 46 mg/dL (40-60); Triglycerides 128 mg/dL (35-150)
[2025-05-24] MEDS: MEROPENEM 1 GM in SODIUM CHLORIDE 0.9% 100 ML IV ×3 (05:37→22:06)
--- NOTE | 2025-05-24 07:32 | PM.HP.1 ---
History of Present Illness History of Present Illness Chief complaint: Infection in left foot , x 2 days Narrative: From night doctor: 65 years old male with history of hyperlipidemia, insulin-dependent diabetes mellitus type 2, presented to the ER for left foot wound check. The patient had admission in March for right foot ulcer growing Prevotella and staph infection and was sent home on PICC line with antibiotics. Follow-up with wound care clinic and yesterday he was referred to the ED for MRI to rule out osteomyelitis. The patient thinks the infection is getting worse. Denies any fever, chills or diaphoresis. He wanted to try antibiotics and declined any kind of surgery. Laboratory shows WBC 10.3, H&H 10.5/30.6, sodium 135, potassium 4.2, creatinine 1.13, blood sugar 119, LFT normal, C-reactive protein 4.5. Left foot MRI shows soft tissue ulceration surrounding the first MTP joint with mild reactive edema. No osteomyelitis/necrotic bone noted. He was given Tylenol, meropenem 500 mg IV, metformin 500 mg p.o. and vancomycin 1.5 g IV. Additional history: He was to skin ulcers. One is on the lateral aspect of his left great toe on 1 is at the pad of the left great toe on the bottom of the foot. MRI is negative for bony involvement. He was sent to the ED yesterday from wound care. 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 He denies fevers, chills. He did have some drainage of serous substance yesterday when examined in his foot. [facility] Medical History Cellulitis of right lower limb Cellulitis of foot, right Wears glasses Surgical History Anesthesia History of knee surgery History of nasal surgery Family History Father Cancer Diabetes mellitus Mother Blood disorder Grandfather History of heart disease Grandfather History of heart disease Social History household members: spouse Smoking Status: Current some day smoker alcohol intake: former Meds Home Medications and Allergies Home Medications ?Medication ?Instructions ?Recorded ?Confirmed ?Type metformin 1,000 mg tablet 1,000 mg PO BID 12/20/20 05/23/25 History blood sugar diagnostic (Contour #100 ea 12/21/20 05/23/25 Rx Test Strips) pen needle, diabetic 31 gauge x See Rx Instructions .Route 07/19/21 05/23/25 Rx /16 (BD Ultra-Fine Short Pen .COMPLEX #100 ea Needle) atorvastatin 20 mg tablet 20 mg PO DAILY 03/18/25 05/23/25 History doxycycline hyclate 100 mg capsule 100 mg PO BID #20 caps 03/20/25 05/23/25 Rx insulin glargine 100 unit/mL (3 30 - 40 unit SUBCUT QAM 05/23/25 05/23/25 History mL) subcutaneous pen semaglutide 2 mg/dose (8 mg/3 mL) 2 mg SUBCUT 05/23/25 History subcutaneous pen injector (Ozempic) Allergies Allergy/AdvReac Type Severity Reaction Status Date / Time Sulfa (Sulfonamide AdvReac Mild RASH Verified 05/23/25 21:23 Antibiotics) Review of Systems Review of Systems Narrative: All else reviewed and otherwise unremarkable except as noted in the history and physical. Exam Vital Signs (past 8 hours): - 05/24/25 04:03 Temperature 99.2 F Pulse Rate 89 Respiratory Rate 20 Blood Pressure 128/59 L Pulse Oximetry 98 Oxygen Flow Rate 0 Oxygen Delivery Method Room Air Oxygen Flow Rate 0 Narrative Exam Narrative: NAD, alert and oriented, fluent speech, calm. Normocephalic skull, EOMI, anicteric sclera, symmetric pupils. Oropharynx unremarkable, no droop. Neck supple, midline trachea, no adenopathy. Lungs clear, normal rate and effort. Heart regular, no murmur gallop or rub. Abdomen is soft, non distended and non tender. Extremities are free of edema. Skin is free of rash or lesions. Joints are not swollen or deformed. Judgment appears to be normal. He was 1 small ulcer on the lateral aspect of his great toe, and 1 on the bottom of his foot pad. There is no foul smell or spontaneous purulent drainage. Objective Imaging Foot MRI: Radiologist's impression: Soft tissue ulceration surrounding the 1st MTP joint, extending to the webspace between the 1st and 2nd rays. There is likely mild reactive edema and enhancement at the lateral base of the 1st proximal phalanx. No large area of intrinsic T1 signal loss to suggest significant osteomyelitis/necrotic bone. Advanced arthritic changes throughout the foot, worst in the midfoot, probably Charcot joint. Labs 05/23/25 11:40 05/24/25 03:57 Labs: Laboratory Results - last 24 hr 05/23/25 05/23/25 05/23/25 11:40 17:26 20:54 WBC 10.3 RBC 3.51 L Hgb 10.5 L Hct 30.6 L MCV 87.1 MCH 29.9 MCHC 34.3 RDW 14.6 Plt Count 200 Neut % (Auto) 89.9 H Lymph % (Auto) 5.2 L [place] % (Auto) 4.5 Eos % (Auto) 0.3 L Baso % (Auto) 0.1 Neut # (Auto) 9300 H Lymph # (Auto) 500 L [place] # (Auto) 500 Eos # (Auto) 0 Baso # (Auto) 0 ESR 56 H Sodium 135 L Potassium 4.2 Chloride 104 Carbon Dioxide 21 L BUN 28 H Creatinine 1.13 Estimated GFR > 60 BUN/Creatinine Ratio 24.8 H Glucose 119 H POC Whole Bld Glucose 200 H 320 H D Lactate 0.9 Calcium 9.0 Magnesium Total Bilirubin 0.9 AST 27 ALT 19 Alkaline Phosphatase 89 C-Reactive Protein 4.5 H Total Protein 7.4 Albumin 4.1 Globulin 3.3 Albumin/Globulin Ratio 1.2 Triglycerides Cholesterol LDL Cholesterol, Calc HDL Cholesterol Nasal Screen MRSA (PCR) 05/24/25 05/24/25 05/24/25 02:05 03:00 03:57 WBC RBC Hgb Hct MCV MCH MCHC RDW Plt Count Neut % (Auto) Lymph % (Auto) [place] % (Auto) Eos % (Auto) Baso % (Auto) Neut # (Auto) Lymph # (Auto) [place] # (Auto) Eos # (Auto) Baso # (Auto) ESR Sodium 132 L Potassium 4.3 Chloride 103 Carbon Dioxide 22 BUN 28 H Creatinine 1.30 H Estimated GFR > 60 BUN/Creatinine Ratio 21.5 Glucose 398 H D POC Whole Bld Glucose 388 H Lactate Calcium 8.5 Magnesium 1.5 L Total Bilirubin AST ALT Alkaline Phosphatase C-Reactive Protein Total Protein Albumin Globulin Albumin/Globulin Ratio Triglycerides 128 Cholesterol 105 L LDL Cholesterol, Calc 33 HDL Cholesterol 46 Nasal Screen MRSA (PCR) Not detected 05/24/25 05:20 WBC RBC Hgb Hct MCV MCH MCHC RDW Plt Count Neut % (Auto) Lymph % (Auto) [place] % (Auto) Eos % (Auto) Baso % (Auto) Neut # (Auto) Lymph # (Auto) [place] # (Auto) Eos # (Auto) Baso # (Auto) ESR Sodium Potassium Chloride Carbon Dioxide BUN Creatinine Estimated GFR BUN/Creatinine Ratio Glucose POC Whole Bld Glucose 336 H Lactate Calcium Magnesium Total Bilirubin AST ALT Alkaline Phosphatase C-Reactive Protein Total Protein Albumin Globulin Albumin/Globulin Ratio Triglycerides Cholesterol LDL Cholesterol, Calc HDL Cholesterol Nasal Screen MRSA (PCR) Assessment & Plan Assessment & Plan narrative: 1. Acute on chronic diabetic ulcer/cellulitis left foot. Stable. -Antibiotics of Vancomycin, meropenem, -Blood cultures times 2, wound cultures, wound care. -MRSA PCR negative. -Wound care consult, followed by wound care. 2. Diabetes mellitus, type II with long-term current use of insulin, uncontrolled with hyperglycemia, -check HbA1c. -Continue to monitor blood sugar. -Continue diabetic diet with sliding scale insulins with NovoLog sliding scale. -Long-acting insulins in appropriate dosing with Detemir. -Hold metformin during the hospital stay -hypoglycemia protocol as needed 3. Hyperlipidemia. Restart atorvastatin PLAN: -continue antibiotics and follow cultures. -discuss with Wound Care, they follow him chronically. Time-Based Coding :: [TOTAL MINUTES] spent with patient and on the chart (including review of chart, obtaining history, exam, reviewing outside data, placing orders, documenting exam and treatment plan, and counseling patient) on [DATE]. Quality VTE Deep Vein Thrombosis/Pulmonary Embolism Present on Admission: No
[2025-05-24 08:00] VITALS: BP 109/57; PULSE 64; RESP 14; TEMP 36.7; O2SAT 98
--- NOTE | 2025-05-24 10:48 | CM.DANOTE ---
Inital DCP Assessment Visit Note Reviewed EMR and team rounds for pt's medical status and updates. Met with pt at bedside to introduce self and role. Pt was found to be alert/oriented, very conversive in sharing his wound care experience over the last few months. He lives independently with his in there own home on [address]. She will also plan on transporting him home once he's medically stable for d/c, anticipated in another 1-2 days. Payor: Medicare PCP: Dr. Hartley Pt is a 65 year-old M who presented to the ED with concerns of a L-foot diabetic ulcer that is worsening with infection, despite currently being treated on oral antibiotics. He had been recently admitted for a R-foot diabetic ulcer that was infection from 03/16-03/21/25, had been treated with IV antibiotics at that time. He declines any surgical intervention or amputation, should his diabetic foot infections ever worsen. Per pt, is very involved and helps him to manage his healthcare appointments and weekly visits at the [facility], is followed by Dr. Curran. MRI was negative for osteomyelitis. Plan was made to admit for another cycle of IV antibiotics. 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 IV antibiotics at the time of d/c. Discharge Planning/Care Management CM Discharge Assessment Start: 05/23/25 20:45 Freq: Status: Active Protocol: Document 05/24/25 10:45 DPL (Rec: 05/24/25 10:48 DPL [id number]) Discharge Planning Assessment Assigned Discharge [employer] [employer] Chief Provider Dr. Hartley Insurance Medicare Advance Directives? No History Provided By Patient,Medical Record Has Patient been No admitted in last 30 days? Comment Last admission was from 03/16-03/21/25. Prior Living House Arrangements Household Members spouse Type of Drives own vehicle transporation used prior to admit Independent with ADL Yes 's Is patient alert and Yes oriented? Caregiver for No Another [facility] W[facility] used prior to admission: Comment Dr. Curran, [facility] () Comment No AD Comment OP wound care Barriers to No Discharge Discharge Plan Home Referrals Initiated None needed Whiteboard Updated Yes in Patient Room with name and ext. # of Coffee Grower Review Status In Process Please Provide Date 05/24/25 Initial DC Assessment Was Performed
[2025-05-24] MEDS: MAGNESIUM CHLORIDE 64 MG TABLET 128 MG PO (10:57)
[2025-05-24 14:40] VITALS: BP 102/52; PULSE 101; RESP 18; TEMP 36.6; O2SAT 98
--- NOTE | 2025-05-24 14:48 | DIET.CONS ---
Dietary Consultation Note Admission Date: 05/23/2025 19:58 Assessment: 65 y M admitted for diabetic ulcer. Dietitian screened for ulcer/DM. Met with pt at bedside. Reports better controlled DM. Using CGM, no BG over 160, FBG 70-100. Sometimes having lows (60) in middle of night still, suspects r/t lower CHO dinner. After last hospitalization, went on low CHO diet. Lost 10 lb. DFM reviewed for meal composition, already getting protein needs in via diet intake. Ht: 193.04 cm Wt: 96.162 kg BMI: 25.8 UBW: Last BM: 05/23/25 (05/23/25 21:27) MNA: 14 Sebastian Score: 23 Diet: 05/23/25 Dinner General (Regular) Diet Diet Modifications: Food Texture: Level 7 - Regular Liquid Consistency: Level 0 - Thin 05/24/25 Breakfast Carbohydrate Consistent Diet Diet Modifications: Carbohydrate level: Medium (3 CHO) Reflex DM orders: No Labs: RBC 3.51 X10^6/uL (4.5-5.9) L 05/23/25 11:40 Hgb 10.5 g/dL (13.5-17.5) L 05/23/25 11:40 Hct 30.6 % (41-53) L 05/23/25 11:40 Creatinine 1.30 mg/dL (0.66-1.25) H 05/24/25 03:57 Lactate 0.9 mmol/L (0.7-2.1) 05/23/25 11:40 Nutrition Diagnosis: Increased nutrient needs (protein, vit c, zinc) r/t healing aeb diabetic foot ulcer Interventions: -Reviewed BGs -Discussed adequate fiber with fibrous carbs and veggies -Discussed nutrient for wound healing, protein and Nakul -Nakul BID EER: 120 g protein (1.25 g/kg per wound healing) Monitoring/Evaluations: po intakes Electronically Signed by: Kim Ndiaye 05/24/25 14:48 Clinical Dietitian [address] [id number]
[2025-05-24] MEDS: VANCOMYCIN 2,000 MG/400 ML PIGGYBACK 200 MG IV (14:55)
[2025-05-24] MEDS: INSULIN GLARGINE 100 UNIT/ML 3ML PEN 50 UNIT SUBCUT (17:07)
[2025-05-24 21:00] VITALS: BP 109/59; PULSE 64; RESP 18; TEMP 36.6; O2SAT 99
[2025-05-24] MEDS: ATORVASTATIN 20 MG TABLET PO (22:09)
[2025-05-25 03:00] VITALS: BP 115/49; PULSE 57; RESP 15; TEMP 36.6; O2SAT 99
[2025-05-25] MEDS: MEROPENEM 1 GM in SODIUM CHLORIDE 0.9% 100 ML IV ×2 (04:38→13:45)
--- NOTE | 2025-05-25 07:42 | PM.PN.1 ---
Subjective Subjective Interval history: 05/24: Admitted with diabetic foot soft tissue infection. Cx pending, MRI negative for osteomyelitis. S: Exam Vital Signs (past 8 hours): - 05/25/25 03:00 Temperature 97.9 F Pulse Rate 57 L Respiratory Rate 15 Blood Pressure 115/49 L Pulse Oximetry 99 Oxygen Flow Rate 0 Oxygen Delivery Method Room Air Oxygen Flow Rate 0 Narrative Exam Narrative: NAD, alert and oriented. Fluent speech. Lungs are clear, normal rate and effort. Heart is regular, no murmur gallop or rub. Abdomen is soft, non distended. Extremities are free of edema. Objective Labs 05/23/25 11:40 05/24/25 03:57 Labs: Laboratory Results - last 24 hr 05/24/25 05/24/25 05/24/25 12:13 16:55 21:05 POC Whole Bld Glucose 103 H D 313 H D 248 H 05/25/25 07:29 POC Whole Bld Glucose 110 H D PFSH Medical History Cellulitis of right lower limb Cellulitis of foot, right Wears glasses Surgical History Anesthesia History of knee surgery History of nasal surgery Family History Father Cancer Diabetes mellitus Mother Blood disorder Grandfather History of heart disease Grandfather History of heart disease Social History household members: spouse Smoking Status: Current some day smoker alcohol intake: former Assessment & Plan Assessment & Plan narrative: 1. Acute on chronic diabetic foot ulcers and cellulitis of the left foot. Active. -Antibiotics of Vancomycin, meropenem, -Blood cultures times 2, wound cultures, wound care. -MRSA PCR negative. -Wound care consult, followed by wound care. 2. Diabetes mellitus, type II with long-term current use of insulin, stable. -check HbA1c. -Continue to monitor blood sugar. -Continue diabetic diet with sliding scale insulins with NovoLog sliding scale. -Glargine 50 17:00. -Hold metformin during the hospital stay -hypoglycemia protocol as needed 3. Hyperlipidemia. Restart atorvastatin PLAN: -continue antibiotics and follow cultures. -discuss with Wound Care, they follow him chronically. Time-Based Coding :: [TOTAL MINUTES] spent with patient and on the chart (including review of chart, obtaining history, exam, reviewing outside data, placing orders, documenting exam and treatment plan, and counseling patient) on [DATE]. Quality VTE Deep Vein Thrombosis/Pulmonary Embolism Present on Admission: No
[2025-05-25 08:34] LABS: Blood Urea Nitrogen 34 mg/dL (9-20); Calcium 9.1 mg/dL (8.4-10.2); Carbon Dioxide 24 mmol/L (22-32); Chloride 108 mmol/L (98-107); Estimated Glomerular Filt Rate > 60 mL/min (>60); Glucose 107 mg/dL (70-99); HEMOLYSIS 24 (0-50); Magnesium 1.8 mg/dL (1.6-2.3); Potassium 4.2 mmol/L (3.4-5.1); Sodium 139 mmol/L (137-145)
[2025-05-25 09:00] VITALS: BP 108/66; PULSE 68; RESP 18; TEMP 36.4; O2SAT 98
--- NOTE | 2025-05-25 10:27 | CM.DPC ---
DCP Cont. Reviewed EMR and team rounds for pt's medical status and updates. Per Hospitalist, cultures are still pending. He will speak with Dr. Davis, Wound Care, today re: a plan for either d/c with oral or IV antibiotics. Monitoring for final plan.
[2025-05-25] MEDS: INSULIN LISPRO 100 UNIT/ML 3ML VIAL SUBCUT (11:58)
--- NOTE | 2025-05-25 13:51 | P.DS_ITS ---
History of Present Illness History of Present Illness Chief complaint: Infection in left foot , x 2 days Narrative: From night doctor: 65 years old male with history of hyperlipidemia, insulin- dependent diabetes mellitus type 2, presented to the ER for left foot wound check. The patient had admission in March for right foot ulcer growing Prevotella and staph infection and was sent home on PICC line with antibiotics. Follow-up with wound care clinic and yesterday he was referred to the ED for MRI to rule out osteomyelitis. The patient thinks the infection is getting worse. Denies any fever, chills or diaphoresis. He wanted to try antibiotics and declined any kind of surgery. Laboratory shows WBC 10.3, H&H 10.5/30.6, sodium 135, potassium 4.2, creatinine 1.13, blood sugar 119, LFT normal, C-reactive protein 4.5. Left foot MRI shows soft tissue ulceration surrounding the first MTP joint with mild reactive edema. No osteomyelitis/necrotic bone noted. He was given Tylenol, meropenem 500 mg IV, metformin 500 mg p.o. and vancomycin 1.5 g IV. Additional history: He was to skin ulcers. One is on the lateral aspect of his left great toe on 1 is at the pad of the left great toe on the bottom of the foot. MRI is negative for bony involvement. He was sent to the ED yesterday from wound care. 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 He denies fevers, chills. He did have some drainage of serous substance yesterday when examined in his foot. Discharge Providers Provider Date of admission: 05/23/25 19:58 Discharge Date: 05/25/25 Primary care physician: Sam Hartley MD Consults: 05/24/25 13:54 Consult to Inpatient Wound Care Nurse Routine Comment: Reason for consultation: Foot wound Discharge provider: Alan Hinds MD Summary Hospital Course Discharge Diagnosis: 1. Acute on chronic diabetic ulcer/cellulitis left foot. Improved. 2. Diabetes mellitus, type II with long-term current use of insulin, stable. 3. Hyperlipidemia. Stable. Hospital Course: The patient has been followed by wound care and was sent to the ER on the day of admission because of concern about a possible infection of an ongoing ulcer on the bottom of the left foot at the base of the great toe as well as a 2nd ulcer on the lateral aspect of the great toe. The patient had been on doxycycline at this time and was sent to the ER. An MRI was negative for evidence of osteomyelitis but did indicate edema consistent with a soft tissue infection. Cultures were obtained in wound care and in the hospital. The 1st set resulted as no growth. He was had MSSA in the past. He was also had prevotella. The patient was treated with IV antibiotics for the next 24 hours and wound care. Ultimately he was felt to be stable for discharge after being discussed with his wound care doctor. The patient will continue doxycycline and cefdinir we will be added at 300 b.i.d. for 10 additional days. Status at Discharge Cognitive/behavioral status at discharge: oriented Functional status at discharge: independent ambulation Overall status at discharge: patient is back to baseline Time Spent with Patient Time spent: Greater than 30 minutes Exam Vital Signs (past 8 hours): - 05/25/25 09:00 Temperature 97.5 F L Pulse Rate 68 Respiratory Rate 18 Blood Pressure 108/66 Pulse Oximetry 98 Oxygen Flow Rate 0 Oxygen Delivery Method Room Air Oxygen Flow Rate 0 Narrative Exam Narrative: NAD, alert and oriented. Fluent speech. Lungs are clear, normal rate and effort. Heart is regular, no murmur gallop or rub. Abdomen is soft, non distended. Extremities are free of edema. Foot looks improved. Objective Imaging MR foot:: Radiologist's impression: Soft tissue ulceration surrounding the 1st MTP joint, extending to the webspace between the 1st and 2nd rays. There is likely mild reactive edema and enhancement at the lateral base of the 1st proximal phalanx. No large area of intrinsic T1 signal loss to suggest significant osteomyelitis/necrotic bone. Advanced arthritic changes throughout the foot, worst in the midfoot, probably Charcot joint. Labs 05/23/25 11:40 05/25/25 07:55 Labs: Laboratory Results - last 24 hr 05/24/25 05/24/25 05/25/25 16:55 21:05 07:29 Sodium Potassium Chloride Carbon Dioxide BUN Creatinine Estimated GFR BUN/Creatinine Ratio Glucose POC Whole Bld Glucose 313 H D 248 H 110 H D Calcium Magnesium 05/25/25 05/25/25 07:55 11:07 Sodium 139 Potassium 4.2 Chloride 108 H Carbon Dioxide 24 BUN 34 H Creatinine 1.14 Estimated GFR > 60 BUN/Creatinine Ratio 29.8 H Glucose 107 H D POC Whole Bld Glucose 223 H D Calcium 9.1 Magnesium 1.8 PFS Medical History Cellulitis of right lower limb Cellulitis of foot, right Wears glasses Surgical History Anesthesia History of knee surgery History of nasal surgery Family History Father Cancer Diabetes mellitus Mother Blood disorder Grandfather History of heart disease Grandfather History of heart disease Social History household members: spouse Smoking Status: Current some day smoker alcohol intake: former Discharge Assessment & Plan Assessment and Plan Assessment: 1. Diabetic foot infection. Improved. Plan of Treatment: Discharge on PO Cefdinir 300 BID for 10 days. Wound care FU Thursday as scheduled. Discharge Plan Discharge Plan Patient Disposition: Home Provider Discharge Comment: Stable for discharge home with oral antibiotics, we will see Dr. Denis wound care next Thursday. We will stay off from the foot for the most part until then. Discharge orders & Medications Prescriptions: New cefdinir 300 mg capsule 300 mg PO BID Qty: 20 0RF Continued pen needle, diabetic [BD Ultra-Fine Short Pen Needle] 31 gauge x 5/16 needle See Rx Instructions .ROUTE .COMPLEX Qty: 100 3RF Dose Instruction: USE TO INJECT LANTUS SOLOSTAR Rx Instructions: USE TO INJECT LANTUS SOLOSTAR atorvastatin 20 mg tablet 20 mg PO DAILY doxycycline hyclate 100 mg capsule 100 mg PO BID Qty: 20 0RF insulin glargine 100 unit/mL (3 mL) insulin pen 30 - 40 unit SUBCUT QAM Rx Instructions: INJECT 64-100 UNITS UNDER THE SKIN DAILY. INCREASING 1-2 UNITS DAILY NEEDED TO MAINTAIN FBS. Ozempic 2 mg/dose (8 mg/3 mL) pen injector 2 mg SUBCUT DAILY (DME) Contour Test Strips Strip See Rx Instructions .ROUTE .MEDSUPPLY Qty: 100 5RF Rx Instructions: As directed, 2 times per day metformin 1,000 mg tablet 1,000 mg PO BID Follow up/Referrals: Sam Hartley MD [Primary Care Provider, [facility]] Discharge Health Status Multidrug resistant organism: No MDRO Diet/Activity/Treatments Diet: Carb-consistent/Diabetic Skin/Wound/Dressing Care Report to your healthcare provider any signs of infection, such as:: chills, fever, night sweats, increased pain, unusual drainage and unusual redness Visit Report/Discharge Packet Instructions: DI for Cellulitis -- Adult Stand Alone Forms: Patient Portal/API Discharge Data Primary Care Provider: Sam Hartley VTE Deep Vein Thrombosis/Pulmonary Embolism Present on Admission: No
[2025-05-25 14:00] VITALS: BP 125/63; PULSE 71; RESP 17; TEMP 36.3; O2SAT 100
--- NOTE | 2025-05-25 14:45 | PC.NURSE ---
Discharge note: Discharge instructions given to patient, discussed importance of F/U with Dr. Denis on Thursday, PO antibiotic adherence, and signs of worsening symptoms. Verbalized understanding of instructions. Home via private vehicle. 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
== END 2025-05-25 14:49 | disposition home or self-care (01) | DRG 638 ==
LOC: ED 19:43 → AC 19:59
PROVIDERS: Emergency Medicine; Admitting Provider Internal Medicine; Emergency Provider Emergency Medicine; PCP Family Medicine; Referring Provider Emergency Medicine; Visit Provider Internal Medicine
DX: E11.621 Type 2 diabetes mellitus with foot ulcer (principal); L03.115 Cellulitis of right lower limb; L03.116 Cellulitis of left lower limb; L97.515 Non-pressure chronic ulcer of other part of right foot with muscle involvement without evidence of necrosis; E11.628 Type 2 diabetes mellitus with other skin complications; F17.200 Nicotine dependence, unspecified, uncomplicated; L97.529 Non-pressure chronic ulcer of other part of left foot with unspecified severity; E11.65 Type 2 diabetes mellitus with hyperglycemia; E78.5 Hyperlipidemia, unspecified; Z79.84 Long term (current) use of oral hypoglycemic drugs; Z79.85 Long-term (current) use of injectable non-insulin antidiabetic drugs; Z79.4 Long term (current) use of insulin; L97.512 Non-pressure chronic ulcer of other part of right foot with fat layer exposed; L97.522 Non-pressure chronic ulcer of other part of left foot with fat layer exposed; E11.42 Type 2 diabetes mellitus with diabetic polyneuropathy; R60.0 Localized edema; L53.8 Other specified erythematous conditions; L84 Corns and callosities; L08.9 Local infection of the skin and subcutaneous tissue, unspecified
CPT/HCPCS: 11042; 36415; 73720; 80048; 80053; 80061; 82962; 83605; 83735; 85025; 85651; 86140; 87040; 87070; 87075; 87205; 87797; 99284; A9579; J1815; J2185; J3374; J3375

== ENCOUNTER → 2025-05-30 09:41 | Outpatient (CLI) | payer MEDICARE, OTHER, SELFPAY ==
[2025-05-23 21:27] VITALS: BMI 25.8
== END ==
LOC: WC 09:43
PROVIDERS: PCP Family Medicine; Referring Provider Family Medicine; Visit Provider Surgery
DX: E11.621 Type 2 diabetes mellitus with foot ulcer (principal); L97.515 Non-pressure chronic ulcer of other part of right foot with muscle involvement without evidence of necrosis; L97.512 Non-pressure chronic ulcer of other part of right foot with fat layer exposed; L97.522 Non-pressure chronic ulcer of other part of left foot with fat layer exposed; E11.42 Type 2 diabetes mellitus with diabetic polyneuropathy; L03.115 Cellulitis of right lower limb; L03.116 Cellulitis of left lower limb; R60.0 Localized edema; L53.8 Other specified erythematous conditions; L84 Corns and callosities
CPT/HCPCS: 11042

== ENCOUNTER → 2025-06-06 09:07 | Outpatient (CLI) | payer MEDICARE, OTHER, SELFPAY ==
[2025-05-23 21:27] VITALS: BMI 25.8
== END ==
LOC: WC 09:08
PROVIDERS: PCP Family Medicine; Referring Provider Family Medicine; Visit Provider Surgery
DX: E11.621 Type 2 diabetes mellitus with foot ulcer (principal); L97.515 Non-pressure chronic ulcer of other part of right foot with muscle involvement without evidence of necrosis; L97.512 Non-pressure chronic ulcer of other part of right foot with fat layer exposed; L97.522 Non-pressure chronic ulcer of other part of left foot with fat layer exposed; L84 Corns and callosities; E11.40 Type 2 diabetes mellitus with diabetic neuropathy, unspecified; Z79.85 Long-term (current) use of injectable non-insulin antidiabetic drugs; Z88.2 Allergy status to sulfonamides
CPT/HCPCS: 11042

== ENCOUNTER → 2025-06-13 16:01 | Outpatient (CLI) | payer MEDICARE, OTHER, SELFPAY ==
[2025-05-23 21:27] VITALS: BMI 25.8
== END ==
LOC: WC 16:02
PROVIDERS: PCP Family Medicine; Referring Provider Family Medicine; Visit Provider Surgery
DX: E11.621 Type 2 diabetes mellitus with foot ulcer (principal); L97.512 Non-pressure chronic ulcer of other part of right foot with fat layer exposed; L97.522 Non-pressure chronic ulcer of other part of left foot with fat layer exposed; L53.9 Erythematous condition, unspecified; R60.0 Localized edema; L84 Corns and callosities; E11.42 Type 2 diabetes mellitus with diabetic polyneuropathy
CPT/HCPCS: 11042; 99213

== ENCOUNTER → 2025-06-20 08:57 | Outpatient (CLI) | payer MEDICARE, OTHER, SELFPAY ==
[2025-05-23 21:27] VITALS: BMI 25.8
== END ==
LOC: WC 09:03
PROVIDERS: PCP Family Medicine; Referring Provider Family Medicine; Visit Provider Surgery
DX: E11.621 Type 2 diabetes mellitus with foot ulcer (principal); E11.42 Type 2 diabetes mellitus with diabetic polyneuropathy; L97.515 Non-pressure chronic ulcer of other part of right foot with muscle involvement without evidence of necrosis; L97.522 Non-pressure chronic ulcer of other part of left foot with fat layer exposed; L84 Corns and callosities; R60.0 Localized edema; L53.9 Erythematous condition, unspecified
CPT/HCPCS: 11042

== ENCOUNTER → 2025-06-27 15:04 | Outpatient (CLI) | payer MEDICARE, OTHER, SELFPAY ==
[2025-05-23 21:27] VITALS: BMI 25.8
== END ==
LOC: WC 15:06
PROVIDERS: PCP Family Medicine; Referring Provider Family Medicine; Visit Provider Surgery
DX: E11.621 Type 2 diabetes mellitus with foot ulcer (principal); L97.522 Non-pressure chronic ulcer of other part of left foot with fat layer exposed; E11.42 Type 2 diabetes mellitus with diabetic polyneuropathy; L84 Corns and callosities; R60.0 Localized edema
CPT/HCPCS: 99212; 99213

== ENCOUNTER → 2025-07-04 15:26 | Outpatient (CLI) | payer MEDICARE, OTHER, SELFPAY ==
[2025-05-23 21:27] VITALS: BMI 25.8
== END ==
LOC: WC 15:27
PROVIDERS: PCP Family Medicine; Referring Provider Family Medicine; Visit Provider Surgery
DX: E11.628 Type 2 diabetes mellitus with other skin complications (principal); L84 Corns and callosities
CPT/HCPCS: 99213

== ENCOUNTER → 2025-07-20 09:46 | Outpatient (CLI) | payer MEDICARE, OTHER, SELFPAY ==
[2025-05-23 21:27] VITALS: BMI 25.8
== END ==
LOC: WC 09:47
PROVIDERS: PCP Family Medicine; Referring Provider Family Medicine; Visit Provider Surgery
DX: E11.621 Type 2 diabetes mellitus with foot ulcer (principal); L97.522 Non-pressure chronic ulcer of other part of left foot with fat layer exposed; E11.42 Type 2 diabetes mellitus with diabetic polyneuropathy; L84 Corns and callosities
CPT/HCPCS: 11042; 99213

== ENCOUNTER → 2025-08-01 10:19 | Outpatient (CLI) | payer MEDICARE, OTHER, SELFPAY ==
[2025-05-23 21:27] VITALS: BMI 25.8
== END ==
LOC: WC 10:22
PROVIDERS: PCP Family Medicine; Referring Provider Family Medicine; Visit Provider Surgery
DX: E11.621 Type 2 diabetes mellitus with foot ulcer (principal); L97.522 Non-pressure chronic ulcer of other part of left foot with fat layer exposed; L84 Corns and callosities; E11.42 Type 2 diabetes mellitus with diabetic polyneuropathy; R23.4 Changes in skin texture
CPT/HCPCS: 99212; 99213

== ENCOUNTER → 2025-08-16 15:13 | Outpatient (CLI) | payer MEDICARE, OTHER, SELFPAY ==
[2025-05-23 21:27] VITALS: BMI 25.8
== END ==
LOC: WC 15:31
PROVIDERS: PCP Family Medicine; Referring Provider Family Medicine; Visit Provider Surgery
DX: Z09 Encounter for follow-up examination after completed treatment for conditions other than malignant neoplasm (principal); Z86.31 Personal history of diabetic foot ulcer
CPT/HCPCS: 99211; 99213